=== PATIENT | male | born 1970 | race Caucasian/White ===

== ENCOUNTER 2019-08-11 11:28 | Outpatient (CLI) | payer MEDICARE, MEDICAID, SELFPAY | END 2019-08-11 11:29 | disposition home or self-care (01) | LOC: ANHAUDIO 11:31 | DX: H90.3 Sensorineural hearing loss, bilateral (principal) | CPT/HCPCS: 92557; 92567 ==

== ENCOUNTER 2020-07-25 10:12 | Outpatient (CLI) | payer MEDICARE, MEDICAID, SELFPAY | END 2020-07-25 10:13 | disposition home or self-care (01) | PROVIDERS: PCP Nurse Practitioner Family; Visit Provider Nurse Practitioner Family | DX: H91.93 Unspecified hearing loss, bilateral (principal) | CPT/HCPCS: 92557; 92567 ==

== ENCOUNTER 2024-03-22 18:17 | Emergency (ER) | payer MEDICARE, MEDICAID, SELFPAY ==
--- OUTSIDE RECORDS SUMMARY | 2024-03-22 18:20 | XMS_ITS | Encounter Summary ---
Author Organization [facility] Address [address] [place] [address] Phone Care Team Providers Care Information Strategist Name Role Phone Leigha Vega MD Primary Care Provider Robbie Cruz MD Unavailable [phone] Ángela Peraza APRN, TUB TENDER Unavailable Reason for Visit * Reason Comments Medication Refill Encounter Details Date Type Department Care Team (Late st Contact Info) Description 10/28/2022 Refill [facility] - Gastroenterology - [place] [address] [place] [phone] [address]va [address], [address] [place] [address] Medication Refill Social History Tobacco Use Types Packs/Day Years Used Date Smoking Tobacco: Never Smokeless Tobacco: Never Alcohol Use Standard Drinks/Week Comments No 0 (1 standard drink = 0.6 oz pur e alcohol) Sexually Active Control Partners Comments Not Currently Sex and Gender Information Value Date Recorded Sex Assigned at Not on file Legal Sex Male 8:02 PM CDT Gender Identity Not on file Sexual Orientation Not on file documented as of this encounter Miscellaneous Notes * Telephone Encounter - Yvonne Smallwood RN - 10/29/2022 11:35 AM CDT mirilax passed protocol. Please approve pended order due to previous provider is no longer with office. * Telephone Encounter - Yvonne Smallwood RN - 10/29/2022 11:28 AM CDT Pharmacy requesting refill of: Requested Prescriptions Pending Prescriptions Disp Refills ??? polyethylene glycol (GLYCOLAX) 17 GM/SCOOP Powder [Pharmacy Med Name: POLYETHYLENE GLYCOL 3350 POWD] 510 g 10 Sig: DISSOLVE 1 CAPFUL (17 GRAMS) IN 8 OUNCES OF LIQUID & TAKE BY MOUTH EVERY OTHER DAY. 8AM Last fill: 10/26/2021 Patients last OV with GI: 10/01/2021 Next Office Visit with GI: None scheduled. Called patient. Spoke with Sarah at [facility]. Patient scheduled an appt for 11/12/2022. documented in this encounter Plan of Treatment Upcoming Encounters Date Type Department Care Team (Late st Contact Info) Description 04/08/2024 10:30 AM BUSINESS ANALYST INTERN Office Visit [facility] - Primary Care - [place] [address] [place] [address] Aguila Graff PAC [address] [place] [address] 09/07/2024 10:00 AM CDT Office Visit [facility] - Neurology - [place] [address] [place] [phone] Robbie Cruz MD [address] [place] [phone] 11/10/2024 11:00 AM CDT Office Visit [facility] - Gastroenterology - [place] [address] [place] [phone] Ángela Peraza APRN, TUB TENDER [address] [place] [address] documented as of this encounter Visit Diagnoses Diagnosis Chronic constipation Unspecified constipation documented in this encounter Additional Health Concerns Infection Onset Date Last Indicated Resolved Time COVID - 19 01/24/2024 01/24/2024 01/24/2024 8:13 PM BUSINESS ANALYST INTERN documented as of this encounter Care Teams Information Strategist Relationship Specialty Start Date End Date Leigha Vega MD [address] [place] [address] [place] [address] PCP - General Family Medicine 11/09/20 Robbie Cruz MD [address] [place] [phone] Consulting Physician Neurology 09/05/22 Ángela Peraza APRN, TUB TENDER [address] [place] [address] Nurse Practitioner Advanced Practice Nurse 11/12/22 documented as of this encounter
--- OUTSIDE RECORDS SUMMARY | 2024-03-22 18:21 | XMS_ITS | Patient Health Summary ---
Author Organization [facility] Yashi Address [address] [place] [address] Care Team Providers Care Recordist Chief Name Role Phone Leigha Vega MD Primary Care Provider [phone] Note from [facility],non-owned Affiliates and Associated Physician Practices is amultiple site organization consisting of ambulatory clinics and hospital sitesin [place] and [place]. This disclosure is being madepursuant to the Care Everywhere program and may not contain all information available regarding this patient. Last updated 17.[facility] Allergies * Morphine(Anaphylaxis) -High Criticality Medications * Be aware that medications may not be up to date on this document. Alwaysverify current medications with the patient. * allopurinol (ZYLOPRIM) 300 MG tablet(Started 02/24/2017) Take 1 (one) tablet by mouth once daily * cetirizine (ZYRTEC) 10 MG tablet(Started 02/24/2017) Take 1 (one) tablet by mouth once daily * DiphenhydrAMINE HCl, Sleep, (ZZZQUIL) 25 MG(Started 03/10/2017) Take by mouth. * acetaminophen (TYLENOL) 325 MG tablet(Started 03/10/2017) Take 2 (two) tablets by mouth q4h PRN (Pain) * Aspirin (ASPIRIN ADULT LOW STRENGTH) 81 MG(Started 02/24/2017) Take 1 (one) tablet by mouth once daily * polyethylene glycol 3350 (MIRALAX) packet(Started 02/13/2017) Take 17 (seventeen) g by mouth once daily * levothyroxine (SYNTHROID) 137 MCG tablet(Started 02/01/2017) Take 1 (one) tablet by mouth once daily * simvastatin (ZOCOR) 40 MG tablet(Started 01/29/2017) Take 1 (one) tablet by mouth once daily * divalproex ER 24hr (DEPAKOTE ER) 500 MG tablet(Started 02/24/2017) Take 1 (one) tablet by mouth once daily * metoprolol tartrate (LOPRESSOR) 25 MG tablet(Started 02/24/2017) Take 1 (one) tablet by mouth once daily * folic acid (FOLVITE) 1 MG tablet(Started 02/24/2017) Take 1 (one) tablet by mouth once daily * alum & mag hydroxide-simeth (MAALOX ADVANCED) 200-200-20 MG/5ML suspension Take 30 mL by mouth as needed * Multiple Vitamins-Minerals (THEREMS-M) TABS(Started 08/10/2017) Take 1 (one) tablet by mouth once daily * omeprazole (PRILOSEC) 40 MG capsule(Started 09/29/2017) Take 20 capsules by mouth 2 times daily,before breakfast and supper * ARTIFICIAL TEARS 1.4 % ophthalmic solution(Started 07/28/2017) Instill 1 (one) drop into both eyes 3 times daily * terbinafine (LAMISIL) 1 % cream(Started 09/08/2017) Apply to affected area at bedtime * B Complex Vitamins (B COMPLEX PO) Take 1 capsule by mouth once daily * albuterol HFA (PROAIR HFA) 108 (90 BASE) MCG/ACT inhaler Inhale 2 puffs by mouth every 4 hours as needed * Uqalv-Iubvb-Nihianr-Pramoxine (TRIPLE ANTIBIOTIC PLUS) 1 % * montelukast (SINGULAIR) 10 MG tablet(Started 08/17/2019) Take 1 tablet by mouth at bedtime 11 refills by 08/16/2020 * terbinafine (LAMISIL) 250 MG tablet(Started 02/28/2020) * selenium sulfide (SELSUN) 2.5 % lotion(Started 12/18/2019) * fluticasone propionate (FLONASE) 50 MCG/ACT nasal spray(Started 09/13/2020) INSTILL 2 SPRAYS INTO EACH NOSTRIL ONCE DAILY. 8AM 5 refills by 09/13/2021 * Calcium Carb-Cholecalciferol (Oyster Shell Calcium w/D) 500-5 MG-MCG TABS (Started 10/28/2022) Take 1 tablet by mouth 3 times daily * gabapentin (Neurontin) 100 MG capsule(Started 10/28/2022) Take 1 (one) capsule by mouth 3 times daily * losartan (Cozaar) 25 MG tablet(Started 02/27/2022) Take 1 (one) tablet by mouth once daily * sucralfate (Carafate) 1 GM tablet(Started 10/28/2022) Take 1 (one) tablet by mouth 2 times daily * bisacodyl EC 5 MG tablet Take 1 (one) tablet by mouth as needed for Constipation * loperamide (Imodium) 2 MG capsule Take 1 (one) capsule by mouth 2 times daily as needed for Diarrhea * Dextromethorphan-guaiFENesin (Robafen DM) 20-200 MG/20ML LIQD Take 10 mL by mouth as needed * acetaminophen CR (Tylenol Arthritis Pain) 650 MG tablet(Started 09/26/2023) Take 1 (one) tablet by mouth every 6 hours as needed for Pain * carboxymethylcellulose sodium 0.5 % ophthalmic solution(Started 10/18/2023) Instill 1 (one) drop into both eyes 3 times daily * divalproex ER 24hr (Depakote ER) 250 MG tablet(Started 09/26/2023) Take 1 (one) tablet by mouth once daily * donepezil (Aricept) 10 MG tablet(Started 09/26/2023) Take 1 (one) tablet by mouth at bedtime * famotidine (Pepcid) 20 MG tablet(Started 09/26/2023) Take 1 (one) tablet by mouth once daily * OLANZapine (ZyPREXA) 7.5 MG tablet(Started 09/26/2023) Take 1 (one) tablet by mouth at bedtime * Emollient (CeraVe PM) LOTN 1 Dose by Apply externally route as needed * diphenhydrAMINE (Banophen) 25 MG capsule Take 1 (one) capsule by mouth every 4 hours as needed for Itching Active Problems Problem Noted Date Diagnosed Date Sensorineural hearing loss (SNHL) of both ears 0 05/05/2018 Dysfunction of right eustachian tube 12/16/2017 Bilateral hearing loss 12/16/2017 UARS (upper airway resistance syndrome) 11/19/19 18 Allergic rhinitis 11/18/2017 Sleep related leg cramps 10/06/2017 Sleep related gastroesophageal reflux disease Sleep choking syndrome 10/06/2017 Hypnagogic hallucinations 10/06/2017 Confusional arousals 10/06/2017 Conductive hearing loss 10/03/2017 Mixed hyperlipidemia 10/03/2017 Spondylosis of cervical [place] on without myelopathy or radiculopathy 10/03/2017 Severe intellectual disabilities 01/24/2017 CAP (community acquired pneumonia) 01/22/2017 Gout 01/22/2017 Schizophrenia 01/22/2017 Trisomy 21, Down syndrome 01/22/2017 Resolved Problems Problem Noted Date Diagnosed Date Resolved Date Cerumen impaction 10/03/2017 10/17/2017 Immunizations * INFLUENZA VACCINE, TRIV. (AFLURIA, FLUZONE TRIVALENT; 6MO+) (IIV3)(Given 11/24/2012) * BCG CORRECTION, HISTORIC VACCINE(Given 04/01/2022) * COVID PFIZER BIVALENT 12Y+ 30mcg/0.3ML(Given 12/06/2021) * Covid Pfizer primary monovalent 12+ yr 0.3mL Purple cap(Given 11/17/2020) * FLU VACCINE QUAD IIV4 SPLIT 0.25 ML IM(Given 11/23/2018, 10/21/2016, 12/14/2015, 11/11/2015) * FLU VACCINE TRI IIV3 SPLIT IM (FLUVIRIN)(Given 11/11/2014, 11/11/2013) * HEP B VACCINE(Given 12/06/1997, 11/07/1997) * HIB VACCINE(Given 11/07/1997) * Hep B, Adjuvanted(Given 04/17/1998) * INFLUENZA VACCINE(Given 10/11/2017) * INFLUENZA VACCINE, QUADR. (FLUZONE; FLULAVAL; FLUARIX; AFLURIA QUADRIVALENT; 6MO+), 0.5 ML (IIV4)(Given 11/06/2022, 12/06/2021, 11/17/2020, 11/25/2019, 11/07/2017) * MODERNA SARS-COV-2 COVID-19 VACCINE 0.25ML(Given 11/17/2020, 04/16/2020, 03/26/2020) * PNEUMOCOCCAL PCV VACCINE(Given 06/16/2008, 03/16/2003, 12/08/1997) * PNEUMOCOCCAL PPSV23(Given 06/09/2018, 02/11/2008) * TD (AGE 7-ADULT)(Given 03/13/2008) * TD, HISTORIC VACCINE(Given 11/07/1997) * TDAP (7yrs+)(Given 10/20/2019, 07/13/2007) Social History Tobacco Use Types Packs/Day Years Used Date Smoking Tobacco: Never Smokeless Tobacco: Never Tobacco Cessation:Counseling Given: Yes Alcohol Use Standard Drinks/Week Comments No 0 (1 standard drink = 0.6 oz pur e alcohol) Sex and Gender Information Value Date Recorded Sex Assigned at Not on file Gender Identity Not on file Sexual Orientation Not on file Last Filed Vital Signs Vital Sign Reading Time Taken Comments Blood Pressure 126/82 10/28/2023 10:46 AM CDT Pulse 90 10/28/2023 10:46 AM CDT Temperature - - Respiratory Rate 12 10/02/2021 3:39 PM CDT Oxygen Saturation - - Inhaled Oxygen Concentration - - Weight 84.2 kg (185 lb 9.6 oz) 10/28/2023 10:46 AM CDT Height 162.6 cm (5' 4 ) 10/02/2021 3:39 PM CDT Body Mass Index 31.86 10/02/2021 3:39 PM CDT Procedures * AUDIOLOGY/TYMPANOMETRY ORDER(Performed 10/28/2023) * PA REMOVE CERUMEN IMPACTED W INSTR SYDNEY(Performed 11/05/2022) Performed for Hearing difficulty of both ears, Sensorineural hearing loss (SNHL) of both ears, UARS(upper airway resistance syndrome), Dysfunction of right eustachian tube, Allergic rhinitis, unspecified seasonality, unspecified trigger * AUDIOLOGY/TYMPANOMETRY ORDER(Performed 11/05/2022) * AUDIOLOGY/TYMPANOMETRY ORDER(Performed 10/10/2021) * PA REMOVE CERUMEN IMPACTED W INSTR LEFT EAR(Performed 10/02/2021) Performed for UARS (upper airway resistance syndrome), Allergic rhinitis, unspecified seasonality, unspecified trigger, Dysfunction of right eustachian tube, Sensorineural hearing loss (SNHL) of bothears, Left ear impacted cerumen * PA LARYNGOSCOPY,FLEX FIBER,DIAGNOSTIC(Performed 11/18/2017) Performed for UARS (upper airway resistance syndrome), Allergic rhinitis, unspecified seasonality, unspecified trigger * PA POLYSOM 6/> YRS 4/> CHA(Performed 10/10/2017) Performed for CECILY (obstructive sleep apnea), Trisomy 21 (HCC) * XR LUMBAR SPINE 4VW OR MORE(Performed 03/10/2017) Results * AUDIOLOGY/TYMPANOMETRY ORDER (10/28/2023 10:12 AM CDT) Farida Barrett AuD - 10/28/2023 10:40 AM CDT History: Geo Grimaldo arrived for a hearing evaluation. Patient resides in a correction and is here for a hearing evaluation to determine the status of his hearing. The last time he was in for a hearing test he did not cooperate for testing. Results: Puretone air/bone conduction testing revealed a mild sloping to moderately severe SN hearing loss in the right ear and slight sloping to moderately severe SN hearing loss in the left ear. Speech understanding was good in the right ear and excellent in the left ear. Immittance measures revealed a Type C tympanogram in the right ear, indicating abnormal middle ear function. Results for the left ear revealed a Type As tympanogram, indicating shallow middle ear function in that ear. These results were discussed in detail with the patient and all pertinent questions were answered. Recommendations: 1) ENT consult. 2) Could consider amplification, however caregiver does not believe he would keep the hearing aids in his ears. Subha Medina. [facility] Clinical Pet Crematory Worker [facility]-Department of Otolaryngology/Audiology [facility] [address] [place] [address] ([facility]) [place] [address] Farida Mascorro AUDIOLOGY SERVICES O RDERABLES * PA REMOVE CERUMEN IMPACTED W INSTR SYDNEY (11/05/2022 10:53 AM CDT) John King MD - 11/05/2022 10:53 AM CDT John Berman MD 11/05/2022 12:34 PM Procedure Note: Cerumen Removal, Bilateral Procedure Details: Informed consent was obtained. The patient was placed in the supine position. The operative microscope used to visualize both ear canals. Large amounts of moderate-severely impacted cerumen were removed with currette and suction. A normal tympanicmembrane was then appreciated. The patient tolerated the procedure without complication. The following findings were noted: B moderate cerumen. R ear retracted without obvious effusion or cholesteatoma. Well tolerated exam. The patient tolerated procedure well. Complications: None John Berman MD PROCEDURE/MINOR S URGICAL ORDERABLES * AUDIOLOGY/TYMPANOMETRY ORDER (11/05/2022 9:53 AM CDT) Michele RodgersFarida riveroSubha - 11/05/2022 9:56 AM CDT History: Geo Rivero Dillan arrived for a hearing evaluation. Patient resides in a correction and is here for a hearing evaluation to determine the status of his hearing. Results: Patient would not cooperate for testing today. Immittance measures revealed a Type C tympanogram in the right ear, indicating abnormal middle ear function. Results for the left ear revealed a Type A tympanogram, indicating normal middle ear function in that ear. These results were discussed in detail with the patient and all pertinent questions were answered. Recommendations: 1) ENT consult. 2) Hearing evaluation per medical recommendation or if a change in hearing is suspected. Subha Medina. [facility] Clinical Pet Crematory Worker [facility]-Department of Otolaryngology/Audiology [facility] [address] [place] [address] ([facility]) [place] [address] Farida Mascorro AUDIOLOGY SERVICES O RDERABLES * AUDIOLOGY/TYMPANOMETRY ORDER (10/10/2021 12:38 PM CDT) Farida Barrett AuD - 10/10/2021 1:13 PM CDT History: Geo Rivero Dillan arrived for a hearing evaluation. Patient resides in a correction and is here for a hearing evaluation to determine the status of his hearing. Results: Puretone air/bone conduction testing revealed a mild sloping to moderately severe SN hearing loss in the right ear and a normal sloping to severe SN hearing loss in the left ear. Speech understanding was good in the right ear and excellent in the left ear. Immittance measures revealed a Type C tympanogram in the right ear, indicating abnormal middle ear function. Results for the left ear revealed a Type A tympanogram, indicating normal middle ear function in that ear. These results were discussed in detail with the patient and all pertinent questions were answered. Recommendations: 1) ENT consult. 2) Hearing evaluation annually or if a change in hearing is suspected. 3) Consider trial with amplification pending medical clearance/interest. I was told patient would likely not wear hearing aids if provided. Subha Medina. [facility] Clinical Pet Crematory Worker [facility]-Department of Otolaryngology/Audiology [facility] [address] [place] [address]. ([facility]) [place] [address] Farida Mascorro AUDIOLOGY SERVICES O RDERABLES * PA REMOVE CERUMEN IMPACTED W INSTR LEFT EAR (10/02/2021 4:29 PM CDT) John King MD - 10/02/2021 4:29 PM CDT John Berman MD 10/02/2021 4:33 PM Procedure Note: Cerumen Removal, Left Procedure Details: Informed consent was obtained. The patient was placed in the supine position. The operative microscope used to visualize the L ear canal. Large amounts of moderate-severely impacted cerumen were removed with currette and suction. A normal tympanic membrane was then appreciated. The patient tolerated the procedure without complication. The following findings were noted: Moderate-severe L cerumen impaction. Normal after removal. The patient tolerated procedure well. Complications: None John Berman MD PROCEDURE/MINOR S URGICAL ORDERABLES * PA LARYNGOSCOPY,FLEX FIBER,DIAGNOSTIC (11/18/2017 2:21 PM CDT) John King MD - 11/18/2017 2:21 PM CDT John Berman MD 11/18/2017 2:21 PM Procedure Note Anesthesia: Lidocaine 2% and Preet-Synephrine 1/2% Endoscopy Type: Flexible Oyglt-Uqpjxaqaouyife-Ftaszjyanqfn Procedure Details: Informed consent was obtained. The patient was placed in the sitting position. After topical anesthesia and decongestion, the 4 mm laryngoscope was passed. The nasal cavities, nasopharynx, oropharynx, hypopharynx, and larynx were all examined. Vocal cords were examined during respiration and phonation. This was repeated with the patient supine. The following findings were noted: Normal nasal cavity bilaterally. No polyps, masses, or drainage. Normal nasopharynx, oropharynx, hypopharynx, and larynx. Good TVC mobility bilaterally. On upright exam, it initially appeared that L cord was less mobile, but this appears normal on upright exam. The patient tolerated procedure well. Complications: None John Berman MD PROCEDURE/MINOR S URGICAL ORDERABLES * PA POLYSOM 6/> YRS 4/> CHA (10/10/2017 2:58 PM CDT) Narrative Ortiz Collado MD - 10/10/2017 2:58 PM CDT Ortiz Collado MD 10/10/2017 2:58 PM Accredited by the [employer] [facility], [address] [place] [address] Telephone : [phone] Medical Records Patient Name: Geo Grimaldo : 1970 Date of Study: 10/03/2017 Referring Physician: No referring provider defined for this encounter. Type of Montage: FULL NIGHT DIAGNOSTIC POLYSOMNOGRAM IMPRESSION: Upper Airway Resistance Syndrome (UARS, with loud snoring and 129 arousals, G47.8) (AHI=4.1 respiratory events/h; RERA est. 12.4/h; Swapnil SaO2=87%; SaO2 below 88%=0.1% of night; Efficiency=96/97%; Stage R=22%; mass=82 kg; [facility]) Patient Active Problem List Diagnosis CAP (community acquired pneumonia) Cerumen impaction Conductive hearing loss Gout Schizophrenia Severe intellectual disabilities Trisomy 21, Down syndrome Mixed hyperlipidemia Spondylosis of cervical region without myelopathy or radiculopathy Sleep related leg cramps Sleep related gastroesophageal reflux disease Sleep choking syndrome Hypnagogic hallucinations Confusional arousals COMMENTS: On the diagnostic night, the degree of sleep fragmentation placed the patient at risk for metabolic sequelae that include hypertension, cardiac events, thrombosis, insulin resistance, and weight gain. In addition, fragmentation of sleep and the consequent daytime effects on cognition and function might place the patient at risk for accidents. RECOMMENDATIONS: 1. ENT evaluation of UARS. 2. The patient should be counseled and cautioned regarding safe driving. 3. The patient should be counseled to avoid sleep deprivation, alcohol, and all sedative medications as these can exacerbate upper airway resistance. 4. The patient should continue a weight reduction program. Even a mild to moderate weight loss should result in significant improvement in the patient s upper airway resistance. 5. Exercise should be undertaken daily, with respect given to any orthopedic limitations. Physical therapy or physical medicine consultation may be warranted. Strenuous exercise, which activates the sympathetic nervous system (adrenaline system) not only helps with weight loss and mood, but also improves sleep quality, and upper respiratory muscle tone during sleep. 6. The patient should be counseled on principles of good sleep hygiene with particular emphasis on maintaining a regular sleep/wake schedule, maintaining a good environment for sleep (dark, cool, quiet), and ensuring sufficient total sleep time. DIAGNOSTIC POLYSOMNOGRAM During this diagnostic study, the patient slept for 471 minutes and had sleep efficiency of 96/97%. The patient's initial sleep latency was 5 minutes. The initial REM latency was 206.5 minutes. The wake after sleep onset (WASO) was 15 minutes. The sleep stages expressed as a percentage of total sleep time: stage N1: 6% stage N2: 50% stage N3: 20% stage REM: 22% The patient's overall hypopnea-apnea index was 4.1 per hour while the respiratory effort-related arousal index was 12.4 per hour. The minimum in oxyhemoglobin saturation was 87% during REM sleep and 90% during non-REM sleep. The patient spent 0.1% of recording time with oxyhemoglobin saturation below 88%. The patient's periodic limb movement index was 2.5 per hour. There were 25 awakenings and 29 spontaneous arousals. EKG showed NSR Parasomniae were not noted during this diagnostic study. Technicians noted snoring and respiratory events. Post-arousal central events Ortiz Collado MD, FACP, FACE, [facility] Sleep Medicine and Metabolism grill attendant [facility] [employer] CC: No referring provider defined for this encounter. Jasper Bryant, MARINE PAINTER-SECRETARIAL STENOGRAPHER Ortiz Collado MD PROCEDURE/MINOR SURG ICAL ORDERABLES * XR LUMBAR SPINE 4VW OR MORE (03/10/2017 8:58 AM EDGER LINER) Anatomical Region Laterality Modality Spine Other Impressions 03/11/2017 4:13 PM EDGER LINER Impression: Mild retrolisthesis of L3 on L4. Multilevel degenerative disc and joint disease. Report dictated by Dayday Smart M.D. (residential sales rep). Dr. EZIO Esquivel MD have personally reviewed and interpreted this examination/study. This report was electronically signed by EZIO COPE MD on 03/11/2017 4:13 PM . Narrative 03/11/2017 4:13 PM EDGER LINER Exam: XR SPINE LUMBAR 4 VW MIN Date: 03/10/2017 8:58 AM Comparison: No prior study is available for comparison. History: back pain Findings: Mild retrolisthesis of L3 on L4 persists with flexion and extension views. There is multilevel degenerative disc disease characterized by mild disc space narrowing, endplate sclerosis, and large anterior and lateral bridging and near bridging osteophytes at multiple levels lower lumbar facet degeneration is seen. No fracture is identified. Procedure Note Ezio Cope MD - 05/14/2017 Exam: XR SPINE LUMBAR 4 VW MIN Date: 03/10/2017 8:58 AM Comparison: No prior study is available for comparison. History: back pain Findings: Mild retrolisthesis of L3 on L4 persists with flexion and extension views.There is multilevel degenerative disc disease characterized by mild discspace narrowing, endplate sclerosis, and large anterior and lateralbridging and near bridging osteophytes at multiple levels lower lumbar facet degeneration is seen. No fractureis identified. IMPRESSION Impression: Mild retrolisthesis of L3 on L4. Multilevel degenerative disc and joint disease. Report dictated by Dayday Smart M.D. (residential sales rep). Dr. EZIO Esquivel MD have personally reviewed and interpreted thisexamination/study. This report was electronically signed by EZIO CPOE MD on 03/11/20174:13 PM . Jasmin Esteban PA-C DIAGNOSTIC TRINO GING ORDERABLES Care Teams Recordist Chief Relationship Specialty Start Date End Date Leigha Vega MD [address] [place] [id number] PCP - General Family Medicine 11/05/22
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
--- OUTSIDE RECORDS SUMMARY | 2024-03-22 18:21 | XMS_ITS | Encounter Summary ---
Author Organization [facility] Address [address] [place] [address] Phone Care Team Providers Care Closing Agent Name Role Phone Leigha Vega MD Primary Care Provider [phone] Robbie Cruz MD Unavailable [phone] Ángela Peraza APRN, FEED GRINDER Unavailable Encounter Details Date Type Department Care Team (Late st Contact Info) Description 04/15/2022 Nursing Facility [facility] [address] [place] [address] Ezio Dillon, PAC [address] [place] [address] Social History Tobacco Use Types Packs/Day [...] Progress Notes * Ezio Dillon, RED - 04/15/2022 4:14 PM CST [facility] PROGRESS NOTE Geo Grimaldo is a 52 y.o. male at [facility] for rehabilitation. Geo Grimaldo is a 52 y.o. male who has transferred to [facility] from [facility] for post-acute care and rehabilitation before [facility]. The patient has intellectual disability due to [...] History: Patient is lying comfortably in bed. Just finished therapy. Says he feels ???fine ???. Denies any shortness of breath. Denies any more of his vomiting. No abdominal pain. Denies any acute symptoms or concerns at this time. Past Medical History Positives Diagnosis Date ??? [...] COLON, HEMORRHOIDS; Surgeon: Audi Almaguer MD; Location: [facility] GI LAB; Service: Gastroenterology ??? FOOT SURGERY X2, MOM STATES PT WAS IN 20'S ??? TYMPANOSTOMY TUBE PLACEMENT PT MOTHER STATES WHEN PT WAS A BABY ??? UPPER GASTROINTESTINAL ENDOSCOPY [id number] ??? UPPER GASTROINTESTINAL ENDOSCOPY Left 09/03/2016 Procedure: EGD ERIC TEST, SMALL BOWEL BIOPSY, DUODENAL BULB LESION BIOPSY, DISTAL, MID, AND PROXIMALESOPHAGEAL BIOPSIES; Surgeon: Audi Almaguer MD; Location: [facility] GI LAB; Service: Gastroenterology Review of Systems: A 14 point comprehensive review of systems was negative except what is documented in interval history above. Objective: Exam: Vital Signs: B/P: 126/72 Pulse: 70 Respirations: 16 Temperature: 97.7 General: Well developed, well nourished, in no [...] this appears to have resolved. Apparently still requiring oxygen at exertion occasionally. Will do a continue to wean as tolerated. 04/11: Has been successfullyweaned off of oxygen. Lung sounds are clear 2. MAGED. Resolved. Kidney functioning returned to baseline after receiving IV fluids. 3. Hypertension. BP stable. Continue management with losartan and lopressor. Monitor vital signs while at the SNF. 04/15: Well controlled 4. Generalized weakness and decreased mobilization. The patient is to receive PT and OT at the SNF to improve strength, balance, and mobility back to baseline. 04/15: Improving 5. Intellectual disability/Down syndrome/Trisomy 21 and underlying dementia without apparent behavioral disturbances. Continue supportive care at the SNF. Continue dementia treatment with Aricept. [facility] 6. Depression and Schizophrenia. The patient's mood [...] advanced care planning with this patient. Disposition: He will be going back to his penitentiary. Apparently penitentiary is not very comfortablewith the supplemental oxygen so he either needs to be weaned off of it completely or needs to be very clear guidelines on it. This note was dictated using Attendify fluency dictation system and there may be errors in rn patient care. Despite proof reading the note, there may be mistakes and I apologize for those. By: RED Menjivar, 04/15/2022 4:14 PM SELF PAY COLLECTOR PAY COLLECTOR documented in this encounter Plan of Treatment Upcoming Encounters Date Type Department Care Team (Late st Contact Info) Description 04/08/2024 10:30 AM SELF PAY COLLECTOR Office Visit [facility] - Primary Care - [place] [address] [place] [address] Aguila Graff, PAC [address] [place] [address] 09/07/2024 10:00 AM CDT Office Visit [facility] - Neurology - [place] [address] [place] [address] Robbie Cruz MD [address] [place] [address] 11/10/2024 11:00 AM CDT Office Visit [facility] - Gastroenterology [facility] [address] [facility] [place] [address] Ángela Peraza APRN, FEED GRINDER [address] [place] [address] documented as of this encounter Visit Diagnoses Not on filedocumented in this encounter Additional Health Concerns Infection Onset Date Last Indicated Resolved Time COVID - 19 01/24/2024 01/24/2024 01/24/2024 8:13 PM SELF PAY COLLECTOR documented as of this encounter Care Teams Closing Agent Relationship Specialty Start Date End Date Leigha Vega MD [address] [place] [address] [address] PCP - General Family Medicine 11/09/20 Robbie Cruz MD [address] [place] [phone] Consulting Physician Neurology 09/05/22 Ángela Peraza APRN, FEED GRINDER [address] [place] [address] Nurse Practitioner Advanced Practice Nurse 11/12/22 documented as of this encounter
--- OUTSIDE RECORDS SUMMARY | 2024-03-22 18:21 | XMS_ITS | Referral Summary ---
Author Organization [facility] Address [address] [place] [address] Care Team Providers Care Steel Inspector Name Role Phone Michaela Sweet MD Primary Care Provider Allergies Active Allergy Reactions Criticality Noted Date Comments Morphine Morphine Sulfate Unknown 03/20/2022 Medications allopurinoL (ZYLOPRIM) 300 mg tablet Take 300 mg by mouth daily 8 Active aspirin 81 mg enteric coated tablet Take 81 mg by mouth daily 8 Active cetirizine (ZyrTEC) 10 mg tablet 10 mg [address] (DEPAKOTE) 500 mg EC tablet Take 500 mg by mouth 2 (two) times a day Active donepeziL (ARICEPT) 10 mg tablet Take 10 mg by mouth daily 0 Active famotidine (PEPCID) 20 mg tablet Take 20 mg by mouth 2 (two) times a day 1 Active folic acid (FOLVITE) 1 mg tablet Take 1 mg by mouth daily 8 Active gabapentin (NEURONTIN) 100 mg capsule Take 100 mg by mouth 3 (three) times a day 1 Active levothyroxine (SYNTHROID) 137 mcg tablet Take 137 mcg by mouth daily 7 Active metoprolol tartrate (LOPRESSOR) 25 mg immediate release tablet Take 12.5 mg by mouth 2 (two) times a day 8 Active montelukast (SINGULAIR) 10 mg tablet Take by mouth 8 Active OLANZapine (ZyPREXA) 7.5 mg tablet Take 5 mg by mouth nightly Active simvastatin (ZOCOR) 40 mg tablet Take 40 mg by mouth nightly 7 Active polyvinyl alcohol (LIQUIFILM TEARS) 1.4 % ophthalmic solution Administer 1 drop into affected eye(s) 3 (three) times a day 8 Active polyethylene glycol (MIRALAX) 17 gram/dose powder Take 17 g by mouth daily 8 Active terbinafine (LamISIL) 1 % cream Apply topically nightly 8 Active calcium carbonate-vitam in D3 1,250mg (500mg elemental) - 5 mcg (200 units) per tablet Take 1 tablet by mouth 3 (three) times a day Active losartan (COZAAR) 25 mg tablet 3 Active Therems-M 9 mg iron-400 mcg tablet 3 Active Artificial Tears,pvalch-po vid, 0.5-0.6 % Administer 1.4 drops into both eyes 3 (three) times a day 3 Active Vitamins B Complex capsule Take 1 capsule by mouth daily 3 Active Active Problems Problem Noted Date Diagnosed Date Pneumonia of right lower lobe due to infectious organism 03/20/2022 MAGED (acute kidney injury) 03/20/2022 HTN (hypertension) 03/20/2022 Cyclical vomiting 09/17/2019 Sensorineural hearing loss (SNHL) of both ears 0 05/05/2018 Bilateral hearing loss 12/16/2017 Allergic rhinitis 11/18/2017 UARS (upper airway resistance syndrome) 11/19/19 18 Gastroesophageal reflux disease without esophagi tis 10/06/2017 Hypnagogic hallucinations 10/06/2017 Sleep choking syndrome 10/06/2017 Sleep related leg cramps 10/06/2017 Conductive hearing loss 10/03/2017 Overview (03/20/2022): External ear Overview: External ear Mixed hyperlipidemia 10/03/2017 Spondylosis of cervical [place] on without myelopathy or radiculopathy 10/03/2017 Severe intellectual disabilities 01/24/2017 CAP (community acquired pneumonia) 01/22/2017 Gout 01/22/2017 Schizophrenia 01/22/2017 Trisomy 21, Down syndrome 01/22/2017 Social History Tobacco Use Types Packs/Day Years Used Date Smoking Tobacco: Never Alcohol Use Standard Drinks/Week Comments Not Currently 0 (1 standard drink = 0.6 oz pur e alcohol) Personal Safety Answer Date Recorded Getting School Help Needed Not on file 10/22 Sex and Gender Information Value Date Recorded Sex Assigned at Not on file Legal Sex Male 2:32 AM ECG TECHNICIAN Gender Identity Not on file Sexual Orientation Not on file Last Filed Vital Signs Vital Sign Reading Time Taken Comments Blood Pressure 126/75 10/05/2022 1:56 AM CDT Pulse 95 10/05/2022 1:56 AM CDT Temperature 36.9 C (98.5 F) 10/04/2022 10:03 PM CDT Respiratory Rate 18 10/05/2022 1:56 AM CDT Oxygen Saturation 95% 10/05/2022 1:56 AM CDT Inhaled Oxygen Concentration - - Weight 88.9 kg (196 lb) 04/06/2022 6:12 PM ECG TECHNICIAN Height 167.6 cm (5' 6 ) 03/20/2022 9:17 PM ECG TECHNICIAN Body Mass Index 31.64 03/20/2022 9:17 PM ECG TECHNICIAN Plan of Treatment Not on file [place] [address] [facility] [employer]DC MEDICARE [facility] MEDICARE IDPA Advance Directives For more information, please contact: [phone] * Full Code (Latest Code Status on File) Date Activated Date Inactivated Comments 03/20/2022 8:23 PM 03/28/2022 5:42 PM Healthcare Agents on File Name Relationship Healthcare Agent [facility] Communication Nisha Lightson Mother Health Care Agent Care Teams Steel Inspector Relationship Specialty Start Date End Date Michaela Sweet MD PCP - General 07/10/16
--- OUTSIDE RECORDS SUMMARY | 2024-03-22 18:21 | XMS_ITS | Encounter Summary ---
Author Organization [facility] Address [address] [place] [address] Phone Care Team Providers Care Internal Controls Analyst Name Role Phone Leigha Vega MD Primary Care Provider [phone] Robbie Cruz MD Unavailable [phone] Ángela Peraza APRN, OTR TRUCK DRIVER Unavailable Encounter Details Date Type Department Care Team (Late st Contact Info) Description 04/11/2022 Nursing Facility [facility] [address] [place] [address] Ezio Dillon, PAC [address] [place] [address] Social History Tobacco Use Types Packs/Day [...] Progress Notes * Ezio Dillon, RED - 04/11/2022 3:29 PM CST [facility] PROGRESS NOTE Geo Grimaldo is a 52 y.o. male at [facility] for rehabilitation. Geo Grimaldo is a 52 y.o. male who has transferred to [facility] from [facility] for post-acute care and rehabilitation before returning to his [facility]. The patient has intellectual disability due to [...] in bed. Says he feels ???good ???. Denies any acute symptoms or concerns. He has been successfully weaned off his oxygen. He denies any shortness of breath. Lung sounds are clear. O2 satting monitor closely still and continues to be very reassuring. Nursing staff has no concerns about the patient. Past Medical History Positives Diagnosis Date ??? [...] COLON, HEMORRHOIDS; Surgeon: Audi Almaguer MD; Location: [facility] GI LAB; Service: Gastroenterology ??? FOOT SURGERY X2, MOM STATES PT WAS IN 20'S ??? TYMPANOSTOMY TUBE PLACEMENT PT MOTHER STATES WHEN PT WAS A BABY ??? UPPER GASTROINTESTINAL ENDOSCOPY [id number] ??? UPPER GASTROINTESTINAL ENDOSCOPY Left 09/03/2016 Procedure: EGD ERIC TEST, SMALL BOWEL BIOPSY, DUODENAL BULB LESION BIOPSY, DISTAL, MID, AND PROXIMALESOPHAGEAL BIOPSIES; Surgeon: Audi Almaguer MD; Location: [facility] GI [facility]; Service: Gastroenterology Review of Systems: A 14 point comprehensive review of systems was negative except what is documented in interval history above. Objective: Exam: Vital Signs: B/P: 126/72 Pulse: 72 Respirations: 18 Temperature: 97.8 General: Well developed, well nourished, [...] Monitor vital signs while at the SNF. 3/2: Well controlled 4. Generalized weakness and decreased mobilization. The patient is to receive PT and OT at the SNF to improve strength, balance, and mobility back to baseline. 5. Intellectual disability/Down syndrome/Trisomy 21 and underlying dementia without apparent behavioral disturbances. Continue supportive care at the SNF. Continue dementia treatment with Aricept. resides at [facility] 6. Depression and Schizophrenia. The patient's mood [...] He will be going back to his ch[facility]. Apparently chcf is not very comfortablewith the supplemental oxygen so he either needs to be weaned off of it completely or needs to be very clear guidelines on it. This note was dictated using [employer] fluency dictation system and there may be errors in sandblaster paint sprayer. Despite proof reading the note, there may be mistakes and I apologize for those. By: RED Menjivar, 04/11/2022 3:29 PM COLOR WORKER R WORKER documented in this encounter Plan of Treatment Upcoming Encounters Date Type Department Care Team (Late st Contact Info) Description 04/08/2024 10:30 AM COLOR WORKER Office Visit [facility] - Primary Care - [place] [address] [place] [address] Aguila Graff, PAC [address] [place] [address] 09/07/2024 10:00 AM CDT Office Visit [facility] - Neurology - [place] [address] [place] [address] Robbie Cruz MD [address] [place] [address] 11/10/2024 11:00 AM CDT Office [facility] Medical [facility] - Gastroenterology - [place] [address] [place] [address] Ángela Peraza APRN, OTR TRUCK DRIVER [address] [place] [address] documented as of this encounter Visit Diagnoses Not on filedocumented in this encounter Additional Health Concerns Infection Onset Date Last Indicated Resolved Time COVID - 19 01/24/2024 01/24/2024 01/24/2024 8:13 PM COLOR WORKER documented as of this encounter Care Teams Internal Controls Analyst Relationship Specialty Start Date End Date Leigha Vega MD [address] [place] [address] [address] PCP - General Family Medicine 11/09/20 Robbie Cruz MD [address] [place] [address] Consulting Physician Neurology 09/05/22 Ángela Peraza APRN, OTR TRUCK DRIVER [address] [place] [address] Nurse Practitioner Advanced Practice Nurse 11/12/22 documented as of this encounter
--- OUTSIDE RECORDS SUMMARY | 2024-03-22 18:21 | XMS_ITS | Encounter Summary ---
Author Organization [facility] Address [address] [place] [address] Phone Care Team Providers Care Yard Hostler Name Role Phone Leigha Vega MD Primary Care Provider [phone] Robbie Cruz MD Unavailable [phone] Ángela Peraza APRN, OFFICE SUPPORT ASSOCIATE Unavailable Encounter Details Date Type Department Care Team (Late st Contact Info) Description 04/04/2022 Nursing Facility [facility] [address] [place] [address] Ezio Dillon, PAC [address] [place] [id number] Social History Tobacco Use Types Packs/Day [...] Progress Notes * Ezio Dillon, RED - 04/04/2022 5:30 PM CST [facility] PROGRESS NOTE Geo Grimaldo is a 52 y.o. male at [facility] for rehabilitation. Geo Grimaldo is a 52 y.o. male who has transferred to [facility] from [facility] for post-acute care and rehabilitation before returning to his prison. The patient has intellectual disability due to [...] room air. Subjective: Interval History: Patient is sitting comfortably in his chair. He is a poor historian but clinically he looks very well. He says he is feeling ???fine?? . He does not have his oxygen on currently. Is lungs are clear and respiratory status looks well. He is currently in his room and is pleasant. Occasionally gets agitated in situations with lots of stimulation. Therapy says he is doing well.t Nursing staff has no concerns about the [...] COLON, HEMORRHOIDS; Surgeon: Audi Almaguer MD; Location: [facility]; Service: Gastroenterology ??? FOOT SURGERY X2, MOM STATES PT WAS IN 20'S ??? TYMPANOSTOMY TUBE PLACEMENT PT MOTHER STATES WHEN PT WAS A BABY ??? UPPER GASTROINTESTINAL ENDOSCOPY [id number] ??? UPPER GASTROINTESTINAL ENDOSCOPY Left 09/03/2016 Procedure: EGD ERIC TEST, SMALL BOWEL BIOPSY, DUODENAL BULB LESION BIOPSY, DISTAL, MID, AND PROXIMALESOPHAGEAL BIOPSIES; Surgeon: Audi Almaguer MD; Location: [facility]; Service: Gastroenterology Review of Systems: A 14 point comprehensive review of systems was negative except what is documented in interval history above. Objective: Exam: Vital Signs: B/P: 128/68 Pulse: 74 Respirations: 18 Temperature: 97.6 General: Well developed, well nourished, in no [...] memory Lab Results: None Imaging: None Assessment/Plan: 1. Pneumonia. The patient The patient required [...] do a continue to wean as tolerated. 2. MAGED. Resolved. Kidney functioning returned to baseline after receiving IV fluids. 3. Hypertension. BP stable. Continue management with losartan and lopressor. Monitor vital signs while at the SNF. 4. Generalized weakness and decreased mobilization. The patient is to receive PT and OT at the SNF to improve strength, balance, and mobility back to baseline. 5. Intellectual disability/Down syndrome/Trisomy 21 and underlying dementia without apparent behavioral disturbances. Continue supportive care at the SNF. Continue dementia treatment with Aricept. 6. Depression and Schizophrenia. The patient's mood [...] He will be going back to his prison. Apparently prison is not very comfortablewith the supplemental oxygen so he either needs to be weaned off of it completely or needs to be very clear guidelines on it. This note was dictated using Sossee fluency dictation system and there may be errors in pharmacy operations manager. Despite proof reading the note, there may be mistakes and I apologize for those. By: RED Menjivar, 04/04/2022 5:30 PM INDUSTRIAL CONTROLS TECHNICIAN STRIAL CONTROLS TECHNICIAN documented in this encounter Plan of Treatment Upcoming Encounters Date Type Department Care Team (Late st Contact Info) Description 04/08/2024 10:30 AM INDUSTRIAL CONTROLS TECHNICIAN Office Visit [facility] - Primary Care - [address] [place] [phone] Aguila Graff, PAC [address] [place] [address] 09/07/2024 10:00 AM CDT Office Visit [facility] - Neurology - [place] [address] [place] [address] Robbie Cruz MD [address] [place] [address] 11/10/2024 11:00 AM CDT Office Visit [facility] - Gastroenterology - [place] [address] [place] [address] Ángela Peraza APRN, OFFICE SUPPORT ASSOCIATE [address] [place] [address] documented as of this encounter Visit Diagnoses Not on filedocumented in this encounter Additional Health Concerns Infection Onset Date Last Indicated Resolved Time COVID - 19 01/24/2024 01/24/2024 01/24/2024 8:13 PM INDUSTRIAL CONTROLS TECHNICIAN documented as of this encounter Care Teams Yard Hostler Relationship Specialty Start Date End Date Leigha Vega MD [address] [place] [address] [place] [address] PCP - General Family Medicine 11/09/20 Robbie Cruz MD [address] [place] [phone] Consulting Physician Neurology 09/05/22 Ángela Peraza APRN, OFFICE SUPPORT ASSOCIATE [address] [place] [address] Nurse Practitioner Advanced Practice Nurse 11/12/22 documented as of this encounter
--- OUTSIDE RECORDS SUMMARY | 2024-03-22 18:21 | XMS_ITS | Encounter Summary ---
Author Organization [facility] Address [address] [place] [address] Phone Care Team Providers Care Lead Inspector Name Role Phone Leigha Vega MD Primary Care Provider [phone] Robbie Cruz MD Unavailable [phone] Ángela Peraza APRN, WATER SAFETY TEACHER Unavailable Encounter Details Date Type Department Care Team (Late st Contact Info) Description 04/22/2022 Nursing Facility [facility] [address] [place] [address] Ezio Dillon, PAC [address] [place] [address] Social History Tobacco Use Types Packs/Day [...] Progress Notes * Ezio Dillon, RED - 04/22/2022 12:27 PM CDT [facility] PROGRESS NOTE Geo Grimaldo is a 52 y.o. male at [facility] for rehabilitation. Geo Grimaldo is a 52 y.o. male who has transferred to [facility] from [facility] for post-acute care and rehabilitation before returning to his halfway. The patient has intellectual disability due to [...] lying comfortably in bed. Says he feels ???pretty good ???. Denies any pain. Denies any GI symptoms. Clinically he looks well. Nursing staff has no concerns. Therapy says he continues to improve. Past Medical History Positives Diagnosis Date ??? [...] COLON, HEMORRHOIDS; Surgeon: Audi Almaguer MD; Location: [facility]; Service: Gastroenterology ??? FOOT SURGERY X2, MOM STATES PT WAS IN 20'S ??? TYMPANOSTOMY TUBE PLACEMENT PT MOTHER STATES WHEN PT WAS A BABY ??? UPPER GASTROINTESTINAL ENDOSCOPY [id number] ??? UPPER GASTROINTESTINAL ENDOSCOPY Left 09/03/2016 Procedure: EGD ERIC TEST, SMALL BOWEL BIOPSY, DUODENAL BULB LESION BIOPSY, DISTAL, MID, AND PROXIMALESOPHAGEAL BIOPSIES; Surgeon: Audi Almaguer MD; Location: [facility]; Service: Gastroenterology Review of Systems: A 14 point comprehensive review of systems was negative except what is documented in interval history above. Objective: Exam: Vital Signs: B/P: 126/72 Pulse: 72 Respirations: 18 Temperature: 98.4 General: Well developed, well nourished, in no [...] Speech therapy following. Downgraded to pureed diet. 04/22: None since. 1. Pneumonia. 04/22: Resolved 2. MAGED. Resolved. Kidney functioning returned to baseline after receiving IV fluids. 3. Hypertension. BP stable. Continue management with losartan and lopressor. Monitor vital signs while at the SNF. 04/22: Well controlled 4. Generalized weakness and decreased [...] Continue dementia treatment with Aricept. resides at halfway 6. Depression and Schizophrenia. The patient's mood [...] Disposition: 04/19: Planning for discharge back to halfway on 04/25. Has been successfully weanedoff the supplemental oxygen for some time now so does not need that. Speech therapy has recommendedpureed diet which she has done well with this and will need to continue after discharge. This note was dictated using Paw[employer] Software fluency dictation system and there may be errors in contract graphic designer. Despite proof reading the note, there may be mistakes and I apologize for those. By: RED Menjivar, 04/22/2022 12:27 PM CDT documented in this encounter Plan of Treatment Upcoming Encounters Date Type Department Care Team (Late st Contact Info) Description 04/08/2024 10:30 AM GLOBAL ACCOUNT MANAGER Office Visit [facility] - Primary Care - [address] [place] [phone] Aguila Graff, RED [address] [place] [address] 09/07/2024 10:00 AM CDT Office Visit [facility] - Neurology - [place] [address] [place] [phone] Robbie Cruz MD [address] [place] [address] 11/10/2024 11:00 AM CDT Office Visit [facility] - Gastroenterology - [place] [address] [place] [phone] Ángela Peraza APRN, WATER SAFETY TEACHER [address] [place] [address] documented as of this encounter Visit Diagnoses Not on filedocumented in this encounter Additional Health Concerns Infection Onset Date Last Indicated Resolved Time COVID - 19 01/24/2024 01/24/2024 01/24/2024 8:13 PM GLOBAL ACCOUNT MANAGER documented as of this encounter Care Teams Lead Inspector Relationship Specialty Start Date End Date Leigha Vega MD [address] [place] [address] [address] PCP - General Family Medicine 11/09/20 Robbie Cruz MD [address] [place] [phone] Consulting Physician Neurology 09/05/22 Ángela Peraza APRN, WATER SAFETY TEACHER [address] [place] [address] Nurse Practitioner Advanced Practice Nurse 11/12/22 documented as of this encounter
--- OUTSIDE RECORDS SUMMARY | 2024-03-22 18:21 | XMS_ITS | Clinical Summary ---
Author Organization [facility] Address [address] [place] [address] Care Team Providers Care Sand Cleaning Machine Operator Name Role Phone Michaela Sweet MD Primary [...] Schizophrenia 01/22/2017 Trisomy 21, Down syndrome 01/22/2017 Medical History Medical History Date Comments Hypertension Arthritis Social History Tobacco Use Types Packs/Day Years Used Date Smoking Tobacco: Never Alcohol Use Standard Drinks/Week Comments Not Currently 0 (1 standard drink = 0.6 oz pur e alcohol) Personal Safety Answer Date Recorded Getting School Help Needed Not on file 10/22 Sex and Gender Information Value Date Recorded Sex Assigned at Not on file Legal Sex Male 2:32 AM MULTIMEDIA MANAGER Gender Identity Not on file Sexual Orientation Not on file Obstetrics History Last Filed Vital Signs Vital Sign Reading Time Taken Comments Blood Pressure 126/75 10/05/2022 1:56 AM CDT Pulse 95 10/05/2022 1:56 AM CDT Temperature 36.9 C (98.5 F) 10/04/2022 10:03 PM CDT Respiratory Rate 18 10/05/2022 1:56 AM CDT Oxygen Saturation 95% 10/05/2022 1:56 AM CDT Inhaled Oxygen Concentration - - Weight 88.9 kg (196 lb) 04/06/2022 6:12 PM MULTIMEDIA MANAGER Height 167.6 cm (5' 6 ) 03/20/2022 9:17 PM MULTIMEDIA MANAGER Body Mass Index 31.64 03/20/2022 9:17 PM MULTIMEDIA MANAGER Plan of Treatment Health Maintenance Due Date Last Done Comments Colon Cancer Screening-Colonoscopy 1970 Depression Screening 1970 Hepatitis C Screening 1970 Prostate Cancer Screening-PSA 1970 Regular Well Visit/Exam 18-64 1987 Zoster Vaccine (1 of 2) 2019 Covid-19 Vaccine ( season) 2023 11/17/2020, 11/17/2020, 04/16/2020, Additional history exists Influenza Vaccine (#1) 2023 3, 12/06/2021, 11/17/2020, Additional history exists DTaP/Tdap/Td Vaccine (4 - Td or Tdap) 10/19/2029 10/20/2019, 03/13/2008, 07/13/2007, Additional history exists Hepatitis B Screening Completed 04/17/1998 , 12/06/1997, 11/07/1997 Pneumococcal vaccine <65 Aged Out 019, 06/16/2008, 06/16/2008, Additional history exists No longer eligible based on patient's age to complete this topic Insurance [facility] OTHER Address: [address] [place] [phone] [employer] MEDICARE [facility] Address: [facility] [address] [place] [address] [facility] IDPA MEDICARE [facility] Address: [facility] [address] [place] [address] [employer] Advance Directives For more information, please contact: [phone] * Full Code (Latest Code Status on File) Date Activated Date Inactivated Comments 03/20/2022 8:23 PM 03/28/2022 5:42 PM Healthcare Agents on File Name Relationship Healthcare Agent [facility] Communication Nisha Miles [facility] Care Agent Care Teams Sand Cleaning Machine Operator Relationship Specialty Start Date End Date Michaela Sweet MD PCP - General 07/10/16
--- OUTSIDE RECORDS SUMMARY | 2024-03-22 18:21 | XMS_ITS | Encounter Summary ---
Author Organization [facility] Address [address] [place] [address] Phone Care Team Providers Care Computer Aided Design Drafter Name Role Phone Myke Aguilar MD Primary Care Provider [phone] Robbie Cruz MD Unavailable [phone] Ángela Peraza APRN, SLATE ROOFER Unavailable Encounter Details Date Type Department Care Team (Late st Contact Info) Description 04/25/2022 Nursing Facility [facility] [address] [place] [address] Ezio Dillon, PAC [address] [place] [address] Social History Tobacco Use Types Packs/Day [...] Progress Notes * Ezio Dillon, RED - 04/25/2022 11:15 AM CDT [facility] DISCHARGE SUMMARY Name: Geo Grimaldo Age: 52 y.o. : 1970 Attending Physician: No att. providers found Admission Date/Time: 03/29/2022 Expected Discharge Date: 04/25/2022 Primary Care Physician: MYKE AGUILAR MD Discharging Provider: RED Menjivar INSTRUCTIONS FOR PHYSICIANS ON FOLLOW UP AFTER DISCHARGE: Follow-up with PCP in 1-2 weeks Discharge Instructions: Discharge Condition: improved Disposition: Back to his [facility] Diet: Regular diet, pureed texture Activity: activity as tolerated Discharge Diagnoses: Generalized weakness and deconditioning, hypertension, neuropathy, GERD, Intellectual disability/Down syndrome/Trisomy 21 and underlying dementia without apparent behavioral disturbances, Depression and Schizophrenia, hypothyroidism, gout, vitamin-D deficiency, obesity, dysphagia Admitting Diagnoses: Pneumonia, acute kidney injury, generalized weakness and deconditioning, hypertension, neuropathy, GERD, Intellectual disability/Down syndrome/Trisomy 21 and underlying dementia without apparent behavioral disturbances, Depression and Schizophrenia, hypothyroidism, gout, vitamin-D deficiency, obesity, dysphagia SKILLED CARE COURSE: Geo Girmaldo was admitted to snf facility for acute care rehabilitation. Prior to coming to rehabilitation facility he was hospitalized at [facility] from 03/20 to 03/28 for pneumonia and was treated with steroid therapy and antibiotics. He came to the facility on supplemental oxygen. With time he was successfully weaned off of oxygen and has been maintaining normal O2 saturations on room air for the last couple weeks now. While at the rehabilitation facility, the patient received snf care and physical therapy rehabilitation. The patient has done well with their rehabilitation and has regained enough strength and ambulationthat it is felt that he can safely be discharged. He is felt to be at his prior level of function. He was evaluated by speech therapy during his time here as well, especially because he had an episode of vomiting just after eating. Speech therapy felt that he was an aspiration risk, largely due tohis impulsivity and eating too fast. He was changed to a pureed diet and has done well with this. His stay in the facility was otherwise uncomplicated and went well. Today he is lying comfortably in bed. Says he feels ???better?? . Denies any acute symptoms or concerns and is looking forward to going back to his ch[facility]. Exam Day of Discharge: Vital Signs: B/P: 126/72 Pulse: 72 Respirations: [...] unable to assess judgement and memory Lab / Imaging Review: Lab Results: None Imaging: None DISCHARGE PLAN: Patient will be discharging back to the [facility] later today. Home health for PT/OT will be ordered. Understands to continue all current medications as directed and follow up with PCP in 1-2 weeks. I have spent time coordinating care for this snf facility discharge: Greater than 30 minutes spent in coordinating care This note was dictated using [employer] fluency dictation system and there may be errors in security compliance engineer. Despite proof reading the note, there may be mistakes and I apologize for those. Signed: RED Menjivar, 04/25/2022, 11:16 AM CDT documented in this encounter Plan of Treatment Upcoming Encounters Date Type Department Care Team (Late st Contact Info) Description 04/08/2024 10:30 AM PHILOSOPHY SPECIALIST Office Visit [facility] - Primary Care - [place] [address] [place] [address] Aguila Graff, PAC [address] [place] [address] 09/07/2024 10:00 AM CDT [facility] - Neurology - [place] [address] [place] [address] Robbie Cruz MD [address] [place] [address] 11/10/2024 11:00 AM CDT Office Visit [facility] - Gastroenterology - [place] [address] [place] [address] Ángela Peraza APRN, SLATE ROOFER [address] [place] [address] documented as of this encounter Visit Diagnoses Not on filedocumented in this encounter Additional Health Concerns Infection Onset Date Last Indicated Resolved Time COVID - 19 01/24/2024 01/24/2024 01/24/2024 8:13 PM PHILOSOPHY SPECIALIST documented as of this encounter Care Teams Computer Aided Design Drafter Relationship Specialty Start Date End Date Myke Aguilar MD [address] [place] [address] PCP - General Family Medicine 11/09/20 Robbie Cruz MD [address] [place] [address] Consulting Physician Neurology 09/05/22 Ángela Peraza APRN, SLATE ROOFER [address] [place] [address] Nurse Practitioner Advanced Practice Nurse 11/12/22 documented as of this encounter
--- OUTSIDE RECORDS SUMMARY | 2024-03-22 18:21 | XMS_ITS | Encounter Summary ---
Author Organization [facility] Address [address] [place] [address] Phone Care Team Providers Care Cash Controller Name Role Phone Leigha Vega MD Primary Care Provider [phone] Robbie Cruz MD Unavailable [phone] Ángela Peraza APRN, CHAIRMAN Unavailable Encounter Details Date Type Department Care Team (Late st Contact Info) Description 04/08/2022 Nursing Facility [facility] [address] [place] [address] Ezio Dillon, PAC [address] [place] [address] Social History Tobacco Use Types Packs/Day [...] Progress Notes * Ezio Dillon, RED - 04/08/2022 12:13 PM CST [facility] PROGRESS NOTE Geo Grimaldo is a 52 y.o. male at [facility] for rehabilitation. Geo Grimaldo is a 52 y.o. male who has transferred to [facility] from [facility] for post-acute care and rehabilitation before returning to his f[facility]. The patient has intellectual disability due to [...] lying comfortably in bed. Says he feels ???fine???. Denies any acute symptoms or concerns. He is not wearing the oxygen currently. Lungs are clear. Nursing staff said he had to wear oxygen part of the day yesterday. Chart review shows that he had a choking event over the weekend and was sent to [facility] where apparently workup was unremarkable and he was sent back to the facility. Has been evaluated by speech therapy and is currently on a pureed diet. Nursing staff has no concerns about the [...] COLON, HEMORRHOIDS; Surgeon: Audi Almaguer MD; Location: [facility]; Service: Gastroenterology ??? FOOT SURGERY X2, MOM STATES PT WAS IN 20'S ??? TYMPANOSTOMY TUBE PLACEMENT PT MOTHER STATES WHEN PT WAS A BABY ??? UPPER GASTROINTESTINAL ENDOSCOPY [id number] ??? UPPER GASTROINTESTINAL ENDOSCOPY Left 09/03/2016 Procedure: EGD ERIC TEST, SMALL BOWEL BIOPSY, DUODENAL BULB LESION BIOPSY, DISTAL, MID, AND PROXIMALESOPHAGEAL BIOPSIES; Surgeon: Audi Almaguer MD; Location: [facility]; Service: Gastroenterology Review of Systems: A 14 point comprehensive review of systems was negative except what is documented in interval history above. Objective: Exam: Vital Signs: B/P: 114/74 Pulse: 76 Respirations: 18 Temperature: 98 General: Well developed, well nourished, in no [...] Speech therapy following. Downgraded to pureed diet. 1. Pneumonia. The patient The patient required [...] He will be going back to his fpc. Apparently fpc is not very comfortablewith the supplemental oxygen so he either needs to be weaned off of it completely or needs to be very clear guidelines on it. This note was dictated using [employer]*Working[employer] fluency dictation system and there may be errors in coat checker. Despite proof reading the note, there may be mistakes and I apologize for those. By: RED Menjivar, 04/08/2022 12:20 PM INSPECTOR GOVERNMENT PROPERTY ECTOR GOVERNMENT PROPERTY documented in this encounter Plan of Treatment Upcoming Encounters Date Type Department Care Team (Late st Contact Info) Description 04/08/2024 10:30 AM INSPECTOR GOVERNMENT PROPERTY Office Visit [facility] - Primary Care - [place] [address] [place] [address] Aguila Graff, PAC [address] [place] [phone] 09/07/2024 10:00 AM CDT Office Visit [facility] - Neurology - [place] [address] [place] [address] Robbie Cruz MD [address] [place] [address] 11/10/2024 11:00 AM CDT Office Visit [facility] - Gastroenterology - [place] [address] [place] [address] Ángela Peraza APRN, CHAIRMAN [address] [place] [address] documented as of this encounter Visit Diagnoses Not on filedocumented in this encounter Additional Health Concerns Infection Onset Date Last Indicated Resolved Time COVID - 19 01/24/2024 01/24/2024 01/24/2024 8:13 PM INSPECTOR GOVERNMENT PROPERTY documented as of this encounter Care Teams Cash Controller Relationship Specialty Start Date End Date Leigha Vega MD [address] [place] [address] PCP - General Family Medicine 11/09/20 Robbie Cruz MD [address] [place] [phone] Consulting Physician Neurology 09/05/22 Ángela Peraza APRN, CHAIRMAN [address] [place] [address] Nurse Practitioner Advanced Practice Nurse 11/12/22 documented as of this encounter
--- OUTSIDE RECORDS SUMMARY | 2024-03-22 18:21 | XMS_ITS | Clinical Summary ---
Author Organization [facility] Address [address] [place] [address] Phone Care Team Providers Care Painter Plate Name Role Phone Leigha Vega MD Primary Care Provider [phone] Robbie Cruz MD Unavailable [phone] Ángela Peraza APRN, COMPUTATIONAL LINGUIST Unavailable Allergies Active Allergy Reactions Criticality Noted Date Comments Morphine Unknown 01/04/2016 Medications allopurinol (ZYLOPRIM) 300 MG TabletIndications :Primary Gout Take 300 mg by mouth daily. Active loperamide (IMODIUM) 2 MG Capsule Take by mouth daily as needed. Active folic acid (FOLVITE) 1 MG Tablet Take 1 mg by mouth daily. Active OLANZapine (ZYPREXA) 7.5 MG Tablet Take 5 mg by mouth nightly. Active divalproex (DEPAKOTE) 500 MG Tablet Delayed Response Take 500 mg by mouth 2 times daily. Active Aspirin 81 MG Tablet Take 81 mg by mouth daily. Active B Complex Vitamins (VITAMIN B COMPLEX PO) Take 1 Cap by mouth daily. Active CETIRIZINE HCL PO Take 10 mg by mouth daily. Active famotidine (PEPCID) 40 MG Tablet Take 40 mg by mouth daily. Active levothyroxine (SYNTHROID) 137 MCG Tablet Take 137 mcg by mouth daily. Active metoprolol tartrate (LOPRESSOR) 25 MG Tablet Take 12.5 mg by mouth 2 times daily. Active polyvinyl alcohol (LIQUIFILM/ARTIFI CIAL TEARS) 1.4 % Solution Place 1 Drop in affected eye(s) 3 times daily. OU Active Calcium Carbonate-Vitamin D (OYSTER SHELL CALCIUM/D) 500-200 MG-UNIT Tablet Take 1 Tablet by mouth 3 times daily. Last dispense date of 10/28/23 for 90 day supply Active selenium sulfide (SELSUN) 2.5 % LotionIndications :Seborrheic Dermatitis of Scalp Apply nightly. Apply, leave 10min, rinse. Use daily x 7 days, then monthly x 3 months. Active terbinafine (LAMISIL) 1 % CreamIndications: Applied to hairline as antifungal Apply nightly. Acti ve aluminum & magnesium hydroxide-simethi cone (MAALOX, MYLANTA) 200-200-20 MG/5ML Suspension Take 30 mL by mouth every 4 hours as needed. Active diphenhydrAMINE (BENADRYL) 25 MG Capsule Take 25 mg by mouth every 6 hours as needed. Active albuterol 108 (90 Base) MCG/ACT Aerosol Solution take 1-2 Puffs by inhalation every 4 hours as needed. Active guaiFENesin (ROBITUSSIN) 100 MG/5ML Syrup Take 10 mL by mouth every 4 hours as needed. Active fluticasone (FLONASE) 50 MCG/ACT Suspension by Nasal route. 8 Active montelukast (SINGULAIR) 10 MG Tablet Take by mouth. 8 Active donepezil (ARICEPT) 10 MG Tablet Take 1 Tab by mouth daily. 30 Tab 5 0 Active acetaminophen (TYLENOL) 650 MG Tablet Controlled Release Take 650 mg by mouth every 6 hours as needed. Active Multiple Vitamins-Minerals (THEREMS-H) Tablet Take by mouth. Activ e gabapentin (NEURONTIN) 100 MG Capsule Take 1 Capsule by mouth 3 times daily. 90 Capsule 1 Active losartan (COZAAR) 25 MG Tablet Take 25 mg by mouth daily. Active polyethylene glycol (GLYCOLAX) 17 GM/SCOOP PowderIndications :Chronic constipation DISSOLVE 1 CAPFUL (17 GRAMS) IN 8 OUNCES OF LIQUID & TAKE BY MOUTH EVERY OTHER DAY. 8AM 510 g 10 3 Active atorvastatin (LIPITOR) 40 MG Tablet 4 Active carboxymethylcell ulose sodium (REFRESH) 0.5 % Solution Place 1 Drop in affected eye(s). 4 Active Emollient (CeraVe PM) Lotion Apply 1 Dose. Activ e ondansetron (ZOFRAN-ODT) 4 MG TABLET DISPERSIBLE Take 1 Tablet by mouth every 6 hours as needed for Nausea - 1st line. 10 Tablet 4 Active senna (SENOKOT) 8.6 MG Tablet Take 1 Tablet by mouth daily. 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 10/03/2017 Severe intellectual disabilities 01/24/2017 Trisomy 21, Down syndrome 01/22/2017 CAP (community acquired pneumonia) 01/22/2017 Schizophrenia 01/22/2017 Gout 01/22/2017 Conductive hearing loss Overview (10/20/2014): External ear Cerumen impaction Overview (10/20/2014): Both ears Dementia Peptic ulcer Encounters Date Type Department Care Team Description 01/24/2024 7:[address] JUDGE - 01/27/2024 3:[address] JUDGE Hospital Encounter [facility] Med Surg [address] [address] Dat Ortiz MD Smith, Janeth Stapleton, CYTOLOGY MANAGER, COMPUTATIONAL LINGUIST Marco Wilson MD Severe sepsis with septic shock (CODE) ([facility]) Discharge Disposition: Discharged to home or Selfcare 01/24/2024 Travel from Last 3 Months Immunizations Immunization Administration Dates Next Due Covid-19, Mrna, Lnp-s, Pf, 3 0 Mcg/0.3 Ml Dose (GOkey) 11/17/2020,04/16/2020,03/26/2020 Hepatitis B Vaccine,unspecif ied Formulation 12/06/1997,11/07/1997 Hepatitis B-CpG 04/17/1998 Influenza Vaccine greater than 3 yrs 11/24/2012 Influenza Vaccine, Quadrivalent, PF 10/12,12/06/2021,11/17/2020,2019,11/07/2017 Influenza, Injectable, Quadrivalent 11/10,10/21/2016,12/14/2015,2015 Influenza, Seasonal, Injecta ble, Undefined 11/11/2014,11/11/2013,11/24/2012 Influenza,Split Virus,Trivalent,Injectable,PF 01/27/2024() Pneumococcal Vaccine Adult - 23 Valent 06/09/2018,02/11/2008 Pneumococcal Vaccine, Unspec ified Formulation 06/16/2008,03/16/2003,12/08/1997 TB Skin Test 09/10/2012 TD VACCINE 03/13/2008 TDAP Vaccine 10/20/2019,07/13/2007 Tetanus Toxoid, Unspecified Formulation 11/07/1997 Family History Medical History Relation Name Comments Hypertension Mother MAUDE GARDUNO Multiple Sclerosis Mother MAUDE GARDUNO Relation Name Status Comments Mother MAUDE GARDUNO Alive Social History Tobacco Use Types Packs/Day Years Used Date Smoking Tobacco: Never Smokeless Tobacco: Never Tobacco Cessation:Counseling Given: Not Answered Alcohol Use Standard Drinks/Week Comments No 0 (1 standard drink = 0.6 oz pur e alcohol) [facility] [employer] Answer Date Recorded In the past 12 months has Cat Amania, gas, oil, or water Duxter threatened to shut off services in your home? Patient unable to answer 01/25/2024 Overall Financial Resource Strain (CARDIA) Answe r Date Recorded How hard is it for you to pa y for the very basics like food, housing, medical care, and heating? Patient unable to answer 01/25/2024 [facility] Occupat ional Health - Occupational Stress Questionnaire Answer Date Recorded Do you feel stress - tense, restless, nervous, or anxious, or unable to sleep at night because your mind is troubled all the time - these days? Patient unable to answer 01/25/2024 Exercise Vital Sign Answer Date Recorde d On average, how many days pe r week do you engage in moderate to strenuous exercise (like a brisk walk)? Patient unable to answer 01/25/2024 On average, how many minutes do you engage in exercise at this level? Patient unable to answer 01/25/2024 Hunger Vital Sign Answer Date Recorded Within the past 12 months, y ou worried that your food would run out before you got the money to buy more. Patient unable to answer 01/25/2024 Within the past 12 months, t he food you bought just didn't last and you didn't have money to get more. Patient unable to answer 01/25/2024 PRAPARE - Transportation Answer Date Re corded In the past 12 months, has l ack of transportation kept you from medical appointments or from getting medications? Patient unable to answer 01/25/2024 In the past 12 months, has l ack of transportation kept you from meetings, work, or from getting things needed for daily living? Patient unable to answer 01/25/2024 Housing Stability Vital Sign Answer Neeraj e Recorded In the last 12 months, was t here a time when you were not able to pay the mortgage or rent on time? Patient unable to answer 01/25/2024 In the past 12 months, how m any times have you moved where you were living? 0 01/25/2024 At any time in the past 12 m [facility], were you homeless or living in a jail (including now)? Patient unable to answer 01/25/2024 Sexually Active Control Partners Comments Not Currently Sex and Gender Information Value Date Recorded Sex Assigned at Not on file Legal Sex Male 8:02 PM CDT Gender Identity Not on file Sexual Orientation Not on file Last Filed Vital Signs Vital Sign Reading Time Taken Comments Blood Pressure 126/64 01/27/2024 5:[address] JUDGE Pulse 85 01/26/2024 3:[address] JUDGE Temperature 37.3 C (99.1 F) 01/27/2024 5:[address] JUDGE Respiratory Rate 18 01/27/2024 5:[address] JUDGE Oxygen Saturation 92% 01/27/2024 7:[address] JUDGE Inhaled Oxygen Concentration - - Weight 86.7 kg (191 lb 2.2 oz) 01/25/2024 1:[address] A M [address] JUDGE Height 160 cm (5' 3 ) 01/25/2024 1:[address] JUDGE Body Mass Index 33.86 01/25/2024 1:[address] JUDGE Plan of Treatment Upcoming Encounters Date Type Department Care Team (Late st Contact Info) Description 04/08/2024 10:[address] JUDGE [facility] [place] [address] [place] [address] Aguila Graff PAC [address] [place] [address] 09/07/2024 10:00 AM CDT [facility] [place] [address] [place] [id number] Robbie Cruz MD [address] [place] [address] 11/10/2024 11:00 AM CDT Office Visit [facility] - Gastroenterology - [place] [address] [place] [address] Ángela Peraza APRN, COMPUTATIONAL LINGUIST [address] [place] [address] Health Maintenance Due Date Last Done Comments Hepatitis C Virus (HCV) Screening 1969 Down Syndrome: Karyotyping Documentation 1969 Down Syndrome: Eye Exam 1970 Down Syndrome: Hearing Exam 1970 Down Syndrome: Iron Studies 1970 Down Syndrome: Sleep Study 1972 Cologuard 2019 Immunochemical Fecal Occult Blood 2019 Zoster Immunization (1 of 2) 2019 Pneumococcal Immunization (50+ years) (2 of 2 - PCV) 06/10/2019 06/09/2018, 06/16/2008, 06/16/2008, Additional history exists Influenza Immunization (#1) 10/12/202310/12, 12/06/2021, 11/17/2020, Additional history exists Down Syndrome: TSH Level 01/25/2025 024, 09/03/2019, 01/25/2017 Down Syndrome: Complete Blood Count 01/26/2025 01/27/2024, 01/27/2024, 01/26/2024, Additional history exists Colonoscopy 10/09/2027 10/08/2017 Colorectal Cancer Screening 10/09/2027 Td Immunization Every 10 Years (Adults With 1 Tdap) 10/19/2029 10/20/2019, 03/13/2008, 07/13/2007, Additional history exists Respiratory Syncytial Virus (RSV) Immunization (Adult) (1 - 1-dose 75+ series) 2044 10/08/2017 Hepatitis B Immunization Completed 999, 12/06/1997, 11/07/1997 Pneumococcal Immunization Combined Discontinued 06/09/2018, 06/16/2008, 06/16/2008, Additional history exists DTaP/Tdap/Td Immunization Discontinued 2019, 03/13/2008, 07/13/2007, Additional history exists SARS-COV-2 Immunization Completed 11/20/19 24, 01/29/2023, 12/06/2021, Additional history exists Down Syndrome: Echocardiogram Completed 11/26/2023, 03/15/2016 Meningococcal Immunization (ACWY) Aged Out No longer eligible based on patient's age to complete this topic Rotavirus Immunization Aged Out No lo nger eligible based on patient's age to complete this topic Procedures Procedure Name Priority Date/Time Associated Diagnosis Comments CBC WITH AUTO DIFFERENTIAL Routine 01/27/2024 5:[address] JUDGE COMPLETE BLOOD COUNT (CBC) WITH DIFF Routine 01/27/2024 5:[address] JUDGE HEPATIC FUNCTION PANEL Routine 01/27/2024 5:[address] JUDGE BASIC METABOLIC PANEL W/ CALCIUM TOTAL Routine 01/27/2024 5:[address] JUDGE US RENAL COMPLETE Routine 01/26/2024 8:[address] JUDGE MANUAL DIFFERENTIAL Routine 01/26/2024 5 :[address] JUDGE CBC WITH AUTO DIFFERENTIAL Routine 01/26/2024 5:[address] JUDGE COMPLETE BLOOD COUNT (CBC) WITH DIFF Routine 01/26/2024 5:[address] JUDGE THYROID STIMULATING HORMONE (TSH) Routine 01/26/2024 4:[address] JUDGE BASIC METABOLIC PANEL W/ CALCIUM TOTAL Routine 01/26/2024 4:[address] JUDGE RHYTHM STRIP 01/26/2024 12:[address] JUDGE RHYTHM STRIP 01/26/2024 12:[address] JUDGE URINALYSIS REFLEX IF INDICATED BY ABNORMAL RESULTS STAT 01/25/2024 6:[address] JUDGE UR POTASSIUM (K) RANDOM Routine 01/25/2024 6:[address] JUDGE UR SODIUM (NA) RANDOM Routine 01/25/2024 6:[address] JUDGE UR OSMOLALITY Routine 01/25/2024 6:[address] JUDGE MANUAL DIFFERENTIAL Routine 01/25/2024 5 :[address] JUDGE CBC WITH AUTO DIFFERENTIAL Routine 01/25/2024 5:[address] JUDGE CMP (COMPREHENSIVE METABOLIC PANEL) Routine 01/25/2024 5:[address] JUDGE COMPLETE BLOOD COUNT (CBC) WITH DIFF Routine 01/25/2024 5:[address] JUDGE MRSA NASAL PCR Routine 01/25/2024 5:[address] JUDGE MRSA NASAL BY PCR Routine 01/25/2024 5:[address] JUDGE RHYTHM STRIP 01/25/2024 12:[address] JUDGE RHYTHM STRIP 01/25/2024 12:[address] JUDGE RHYTHM STRIP 01/25/2024 12:[address] JUDGE LACTIC ACID (LACTATE) STAT 01/24/2024 10:[address] JUDGE XR CHEST SINGLE VIEW PORTABLE STAT 01/24/2024 8:[address] JUDGE GOLD TOP TUBE STAT 01/24/2024 7:[address] JUDGE BLUE TOP TUBE STAT 01/24/2024 7:[address] JUDGE CBC WITH AUTO DIFFERENTIAL STAT 01/24/2024 7:[address] JUDGE EXTRA TUBES STAT 01/24/2024 7:[address] JUDGE LACTIC ACID (LACTATE) STAT 01/24/2024 7:[address] JUDGE CMP (COMPREHENSIVE METABOLIC PANEL) STAT 01/24/2024 7:[address] JUDGE COMPLETE BLOOD COUNT (CBC) WITH DIFF STAT 01/24/2024 7:[address] JUDGE CULTURE, BLOOD STAT 01/24/2024 7:[address] JUDGE CULTURE, BLOOD STAT 01/24/2024 7:[address] JUDGE CRITICAL CARE Routine 01/24/2024 7:[address] JUDGE EKG 12 LEAD STAT 01/24/2024 7:[address] JUDGE GROUP A STREP BY PCR STAT 01/24/2024 7:[address] JUDGE RSV,SARS-COV-2,INFLU SANA A&B BY PCR STAT 01/24/2024 7:[address] JUDGE EKG SCAN 01/24/2024 12:[address] JUDGE RHYTHM STRIP 01/24/2024 12:[address] JUDGE ADULT TRANS THORACIC ECHO 2D COMPLETE Routine 03/15/2016 8:[address] JUDGE Chest pain, unspecified Hyperlipidemia, unspecified hyperlipidemia type from Last 3 Months or Most Recently Relevant to Health Maintenance Results * (ABNORMAL) CBC with Auto Differential (01/27/2024 5:[address] JUDGE) Only the most recent of4 resultswithin the time period is included. [facility] WBC 10.66 4.00 - 12.00 10(3)/[facility] 01/27/2024 6:41 AM [facility] RBC 3.44(L) 4.40 - 5.80 10(6)/[facility] 01/27/2024 6:41 AM [facility] HEMOGLOBIN (HGB) 11.9(L) 13.0 - 16.5 g/dL 01/27/2024 6:41 AM [facility] HEMATOCRIT (HCT) 35.4(L) 38.0 - 50.0 % 01/27/2024 6:41 AM [facility] MCV 102.9(H) 82.0 - 96.0 fL 01/27/2024 6:41 AM [facility] MCH 34.6(H) 26.0 - 32.0 pg 01/27/2024 6:41 AM [facility] MCHC 33.6 31.0 - 36.0 g/dL 01/27/2024 6:41 AM [facility] PLATELET COUNT 185 140 - 440 10(3)/[facility] 01/27/2024 6:41 AM [facility] RDW 14.6 11.8 - 15.5 % 01/27/2024 6:41 AM [facility] MPV 10.0 8.0 - 12.6 fL 01/27/2024 6:41 AM [facility] NEUTROPHILS 59.2 40.0 - 68.0 % 01/27/2024 6:41 AM [facility] LYMPHOCYTES 26.4 19.0 - 49.0 % 01/27/2024 6:41 AM [facility] MONOCYTES 12.4 3.0 - 13.0 % 01/27/2024 6:41 AM [facility] EOSINOPHILS 0.9 0.0 - 8.0 % 01/27/2024 6:41 AM [facility] BASOPHILS 1.1(H) 0.0 - 1.0 % 01/27/2024 6:[address] JUDGE [facility] ABSOLUTE NEUTROPHILS 6.31(H) 1.40 - 5.30 10(3)/[facility] 01/27/2024 6:[address] JUDGE [facility] ABSOLUTE LYMPHOCYTES 2.81 0.90 - 3.30 10(3)/[facility] 01/27/2024 6:[address] JUDGE [facility] ABSOLUTE MONOCYTES 1.32(H) 0.10 - 0.90 10(3)/[facility] 01/27/2024 6:[address] JUDGE [facility] ABSOLUTE EOSINOPHIL 0.10 0.00 - 0.50 10(3)/[facility] 01/27/2024 6:[address] JUDGE [facility] ABSOLUTE BASOPHILS 0.12(H) 0.00 - 0.10 10(3)/[facility] 01/27/2024 6:[address] JUDGE [facility] NRBC PER 100 WBC 0 01/27/20 6:41 AM [facility] Blood Venipuncture / Unknown 01/27/2024 5:[address] JUDGE 01/27/2024 6:[address] JUDGE us Vicki Mayer APRN, CNP HEMATOLOGY ORDERABLES Final Result [facility] [address] [place] [address] * (ABNORMAL) Hepatic Function Panel (01/27/2024 5:[address] JUDGE) T BILI 0.3 0.2 - 1.2 mg/dL 01/27/2024 6:[address] JUDGE [facility] BILIRUBIN,DIRECT 0.1 0.0 - 0.5 mg/dL 01/27/2024 6:[address] JUDGE [facility] ALKALINE PHOSPHATASE 116 40 - 150 U/L 01/27/2024 6:59 AM [facility] SGOT (AST) 107(H) 5 - 34 U/L 01/27/2024 6:[address] JUDGE [facility] SGPT (ALT) 98(H) 0 - 55 U/L 01/27/2024 6:[address] JUDGE [facility] TOTAL PROTEIN 6.4 6.3 - 8.2 g/dL 01/27/2024 6:59 AM [facility] ALBUMIN 3.1(L) 3.5 - 5.0 g/dL 01/27/2024 6:59 AM [facility] Blood Venipuncture / Unknown 01/27/2024 5:[address] JUDGE 01/27/2024 6:[address] JUDGE us Gage Garrison MD CHEMISTRY ORDERABLES Final Result [facility] [address] [place] [address] * (ABNORMAL) BMP with Ca, Total (01/27/2024 5:[address] JUDGE) Only the most recent of2 resultswithin the time period is included. SODIUM 142 136 - 145 mmol/L 01/27/2024 6:59 AM [facility] POTASSIUM 4.2 3.5 - 5.1 mmol/L 01/27/2024 6:59 AM [facility] CHLORIDE 107 98 - 107 mmol/L 01/27/2024 6:59 AM [facility] CO2, VENOUS 24 22 - 30 mmol/L 01/27/2024 6:59 AM [facility] ANION GAP 15.2 <18.0 mmol/L 01/27/2024 6:59 AM [facility] GLUCOSE 89 70 - 99 mg/dL 01/27/2024 6:59 AM [facility] BUN 18 8 - 26 mg/dL 01/27/2024 6:59 AM [facility] CREATININE, BLOOD 1.00 0.70 - 1.30 mg/dL 01/27/2024 6:59 AM [facility] BUN/CREATININE RATIO 18 12 - 20 ratio 01/27/2024 6:[address] JUDGE [facility] CALCIUM 8.5(L) 8.7 - 10.5 mg/dL 01/27/2024 6:[address] JUDGE [facility] GFR, ESTIMATED >60 >=60 01/27/2024 6:[address] JUDGE [facility] Comment: Creatinine Clearance is the preferred criteria for selecting drug dose adjustments in renally impaired patients. The GFR is provided as additional pertinent clinical information. GFR is reported in mL/min/1.73 sq m. Calculation based on the Chronic Kidney Disease Epidemiology Collaboration (CKD- EPI) equation refit without adjustment for race. GFR, EST. >60 >=60 024 6:[address] JUDGE [facility] GFR, EST. NONAFRICAN >60 >=60 01/27/2024 6:[address] JUDGE [facility] Blood Venipuncture / Unknown 01/27/2024 5:[address] JUDGE 01/27/2024 6:[address] JUDGE us Tanya Pan CYTOLOGY MANAGER, COMPUTATIONAL LINGUIST CHEMISTRY ORDERABLES Maria Guadalupe l Result [facility] [address] [place] [address] * US RENAL COMPLETE (01/26/2024 8:[address] JUDGE) Anatomical Region Laterality Modality , Abdomen N/A Ultrasound 01/26/2024 11:[address] JUDGE Impressions 01/26/2024 11:[address] JUDGE IMPRESSION: Unremarkable sonographic appearance of the kidneys within the limits of the exam. No hydronephrosis. Urinary bladder is mildly thick-walled which could be due to underdistention or cystitis. Correlation with urinalysis if clinically indicated. Ureteral jets are not demonstrated. Narrative 01/26/2024 11:[address] JUDGE EXAM DESCRIPTION: US RENAL COMPLETE REASON FOR STUDY: elevated creatinine 3.48 TECHNIQUE: Ultrasound of the kidneys and urinary bladder was performed with grayscale imaging. COMPARISON: Abdomen pelvis CT 01/22/2017 FINDINGS: Suboptimal evaluation of the kidneys due to overlying bowel gas. RIGHT KIDNEY: The right kidney measures 13.6 cm in length. Maintained cortical thickness and echogenicity. No hydronephrosis. LEFT KIDNEY: The left kidney measures 11.6 cm in length. Maintained cortical thickness and echogenicity. No hydronephrosis. URINARY BLADDER: Urinary bladder appears mildly thick-walled but was not measured. The bilateral ureteral jets are not demonstrated. OTHER: No other additional findings. THIS IS AN ELECTRONICALLY VERIFIED FINAL REPORT 01/26/2024 11:41 AM - Electronically signed by Saeed Zaman M.D. AG: JOY Report ID: [id number] Reading Location: [id number] Procedure Note Saeed Zaman MD - 01/26/2024 EXAM DESCRIPTION: US RENAL COMPLETE REASON FOR STUDY: elevated creatinine 3.48 TECHNIQUE: Ultrasound of the kidneys and urinary bladder was performed with grayscale imaging. COMPARISON: Abdomen pelvis CT 01/22/2017 FINDINGS: Suboptimal evaluation of the kidneys due to overlying bowel gas. RIGHT KIDNEY: The right kidney measures 13.6 cm in length. Maintained cortical thickness and echogenicity. No hydronephrosis. LEFT KIDNEY: The left kidney measures 11.6 cm in length. Maintained cortical thickness and echogenicity. No hydronephrosis. URINARY BLADDER: Urinary bladder appears mildly thick-walled but was not measured. The bilateral ureteral jets are not demonstrated. OTHER: No other additional findings. THIS IS AN ELECTRONICALLY VERIFIED FINAL REPORT 01/26/2024 11:41 AM - Electronically signed by Saeed Zaman M.D. AG: JOY Report ID: [id number] Reading Location: [id number] IMPRESSION: Unremarkable sonographic appearance of the kidneys within the limits of the exam. No hydronephrosis. Urinary bladder is mildly thick-walled which could be due to underdistention or cystitis. Correlation with urinalysis if clinically indicated. Ureteral jets are not demonstrated. us Tanya Pan CYTOLOGY MANAGER, COMPUTATIONAL LINGUIST [facility] US ORDERABLES Final R esult * (ABNORMAL) Manual Differential (01/26/2024 5:[address] JUDGE) Only the most recent of2 resultswithin the time period is included. BANDS % 1.0 % 01/26/2024 6:[address] JUDGE [facility] NEUTROPHILS % 68.0 40.0 - 68.0 % 01/26/2024 6:[address] JUDGE [facility] LYMPHOCYTES % 23.0 19.0 - 49.0 % 01/26/2024 6:[address] JUDGE [facility] MONOCYTES % 8.0 3.0 - 13.0 % 01/26/2024 6:[address] JUDGE [facility] NEUTROPHILS ABSOLUTE 11.06(H) 1.50 - 6.70 10(3)/mcL 01/26/2024 6:[address] JUDGE [facility] LYMPHOCYTES ABSOLUTE 3.69(H) 0.90 - 3.30 10(3)/[facility] 01/26/2024 6:[address] JUDGE [facility] MONOCYTES ABSOLUTE 1.28(H) 0.10 - 0.90 10(3)/mcL 01/26/2024 6:[address] JUDGE [facility] POLYCHROMASIA 1+ 01/26/2024 6:[address] JUDGE [facility] WBC MORPH STATUS Normal 01/26/20 24 6:[address] JUDGE [facility] [facility] STATUS Normal 6:[address] JUDGE [facility] Blood Venipuncture / Unknown 01/26/2024 5:[address] JUDGE 01/26/2024 5:[address] JUDGE us Tanya Pan APRN, CNP HEMATOLOGY ORDERABLES Fin al Result [facility] [place] [address] * Thyroid Stimulating Hormone (TSH) (01/26/2024 4:[address] JUDGE) Pathologist [facility] TSH 2.401 0.300 - 5.000 mIU/L 01/26/2024 6:[address] JUDGE [facility] Blood Venipuncture / Unknown 01/26/2024 4:[address] JUDGE 01/26/2024 5:[address] JUDGE Gage Garrison MD CHEMISTRY ORDERABLES Final Result Performing Organization Address City/[facility] Co de Phone Number [facility] [place] [address] * RHYTHM STRIP (01/26/2024 12:[address] JUDGE) Only the most recent of6 resultswithin the time period is included. 01/26/2024 Provider Scan IMG ECG ORDERABLES Final Result Performing Organization Address [facility] Co de Phone Number RESULTING AGENCY * (ABNORMAL) Urinalysis with Reflex (01/25/2024 6:[address] JUDGE) [facility] SPECIFIC GRAVITY 1.010 1.003 - 1.030 01/25/2024 7:[address] JUDGE [facility] URINE PH 6.0 5.0 - 9.0 01/25/2024 7:04 AM [facility] WBC ESTERASE 25 /ul(A) Negative 01/25/2024 7:[address] JUDGE [facility] NITRITE Negative Negative 01/25/2024 7:04 AM [facility] PROTEIN, RANDOM URINE 30 mg/dL(A) Negative 01/25/2024 7:04 AM [facility] URINE GLUCOSE, QUAL Negative Negative 01/25/2024 7:04 AM [facility] URINE KETONES 5 mg/dL(A) Negative 01/25/2024 7:04 AM [facility] UROBILINOGEN Normal Normal mg/dL 01/25/2024 7:[address] JUDGE [facility] URINE BLOOD 250 /uL(A) Negative talon/ul 01/25/2024 7:[address] JUDGE [facility] URINALYSIS COLOR Yellow 01/25/20 7:[address] JUDGE [facility] URINALYSIS CLARITY Clear 01/25/2024 7:[address] JUDGE [facility] WBC (Urine) 0-5 Negative, 0-5 /hpf 01/25/2024 7:[address] JUDGE [facility] URINE RBC'S 6-10(A) Negative, 0-2 /hpf 01/25/2024 7:[address] JUDGE [facility] EPITHELIAL CELLS Occasional /lpf 01/25/20 7:[address] JUDGE [facility] BACTERIA, URINE Few(A) Negative /hpf 01/25/2024 7:[address] JUDGE [facility] Urine URINE SPECIMEN / Unknown Non-Phlebotomy Collection / Unknown 01/25/2024 6:[address] JUDGE 01/25/2024 6:[address] JUDGE us Janeth Yeh CYTOLOGY MANAGER, GUILLERMO URINE ORDERABLES Final Result Performing Organization Address City/[facility]/ZIP Co de Phone Number [facility] [address] [place] [address] * Ur Sodium (Na) Random (01/25/2024 6:[address] JUDGE) SODIUM, RANDOM URINE 54 mmol/L 01/25/2024 3:[address] JUDGE [facility] Comment:No reference range h as been established. Consider Clinical Correlation. Urine Non-Phlebotomy Collection / Unknown 01/25/2024 6:[address] JUDGE 01/25/2024 6:[address] JUDGE us Tanya Pan CYTOLOGY MANAGER, COMPUTATIONAL LINGUIST URINE ORDERABLES Final Re sult Performing Organization Address City/[facility]/ZIP Co de Phone Number [facility] [address] [place] [address], [place] * Ur Potassium (K) Random (01/25/2024 6:[address] JUDGE) UR POTASSIUM, RANDOM 67 mmol/L 01/25/2024 3:[address] JUDGE [facility] Comment:No reference range h as been established. Consider Clinical Correlation. Urine Non-Phlebotomy Collection / Unknown 01/25/2024 6:[address] JUDGE 01/25/2024 6:[address] JUDGE us Tanya Pan APRN, GUILLERMO URINE ORDERABLES Final Re sult [facility] [address] [place] [address], [place] * Ur Osmolality (01/25/2024 6:[address] JUDGE) OSMOLALITY, URINE 530 50 - 1,400 mOsm/kg 01/25/2024 3:[address] JUDGE [facility] Urine Non-Phlebotomy Collection / Unknown 01/25/2024 6:[address] JUDGE 01/25/2024 6:[address] JUDGE us Tanya Pan APRN, GUILLERMO URINE ORDERABLES Final Re sult Performing Organization Address City/[facility]/ZIP Co de Phone Number [facility] [address] [place] [address], [place] * MRSA NASAL PCR (01/25/2024 5:[address] JUDGE) Pathologist [facility] MRSA PCR RESULT Negative Negative, Invalid 01/25/2024 6:[address] JUDGE [facility] Other NASOPHARYNGEAL SWAB / Unknown Non-Phlebotomy Collection / Unknown 01/25/2024 5:[address] JUDGE 01/25/2024 5:[address] JUDGE us Janeth Yeh APRN, GUILLERMO MICROBIOLOGY - GENERAL ORDERABLES Final Result [facility] [address] [place] [address] * (ABNORMAL) CMP (Comprehensive Metabolic Panel) (01/25/2024 5:[address] JUDGE) Only the most recent of2 resultswithin the time period is included. SODIUM 139 136 - 145 mmol/L 01/25/2024 5:49 AM [facility] POTASSIUM 4.3 3.5 - 5.1 mmol/L 01/25/2024 5:49 AM [facility] CHLORIDE 109(H) 98 - 107 mmol/L 01/25/2024 5:49 AM [facility] CO2, VENOUS 23 22 - 30 mmol/L 01/25/2024 5:49 AM [facility] ANION GAP 11.3 <18.0 mmol/L 01/25/2024 5:49 AM [facility] GLUCOSE 103(H) 70 - 99 mg/dL 01/25/2024 5:49 AM [facility] BUN 35(H) 8 - 26 mg/dL 01/25/2024 5:49 AM [facility] CREATININE, BLOOD 2.62(H) 0.70 - 1.30 mg/dL 01/25/2024 5:49 AM [facility] BUN/CREATININE RATIO 13 12 - 20 ratio 01/25/2024 5:49 AM [facility] TOTAL PROTEIN 5.7(L) 6.3 - 8.2 g/dL 01/25/2024 5:49 AM [facility] ALBUMIN 2.9(L) 3.5 - 5.0 g/dL 01/25/2024 5:49 AM [facility] A/G RATIO 1.0 1.0 - 2.2 01/25/2024 5:49 AM [facility] CALCIUM 7.7(L) 8.7 - 10.5 mg/dL 01/25/2024 5:49 AM [facility] T BILI 0.3 0.2 - 1.2 mg/dL 01/25/2024 5:[address] JUDGE [facility] SGOT (AST) 128(H) 5 - 34 U/L 01/25/2024 5:[address] JUDGE [facility] SGPT (ALT) 61(H) 0 - 55 U/L 01/25/2024 5:[address] JUDGE [facility] ALKALINE PHOSPHATASE 77 40 - 150 U/L 01/25/2024 5:[address] JUDGE [facility] GFR, ESTIMATED 28(L) >=60 01/25/2024 5:[address] JUDGE [facility] Comment: Creatinine Clearance is the preferred criteria for selecting drug dose adjustments in renally impaired patients. The GFR is provided as additional pertinent clinical information. GFR is reported in mL/min/1.73 sq m. Calculation based on the Chronic Kidney Disease Epidemiology Collaboration (CKD- EPI) equation refit without adjustment for race. GFR, EST. 31(L) >=60 024 5:[address] JUDGE [facility] GFR, EST. NONAFRICAN 26(L) >=60 01/25/2024 5:[address] JUDGE [facility] Blood Venipuncture / Unknown 01/25/2024 5:[address] JUDGE 01/25/2024 5:[address] JUDGE us Tanya Pan CYTOLOGY MANAGER, COMPUTATIONAL LINGUIST CHEMISTRY ORDERABLES Maria Guadalupe l Result [facility] [address] [place] [address] * Lactic Acid (Lactate) (01/24/2024 10:[address] JUDGE) Only the most recent of2 resultswithin the time period is included. LACTIC ACID 1.1 0.7 - 2.0 mmol/L 01/24/2024 10:[address] JUDGE [facility] Blood Venipuncture / Unknown 01/24/2024 10:[address] JUDGE 01/24/2024 10:[address] JUDGE us Dat Ortiz MD CHEMISTRY ORDERABLES Maria Guadalupe l Result [facility] [place] [address] * XR CHEST SINGLE VIEW PORTABLE (01/24/2024 8:[address] JUDGE) Anatomical Region Laterality Modality Chest N/A Computed Radiogr aphy 01/24/2024 8:[address] JUDGE Impressions 01/24/2024 8:[address] JUDGE IMPRESSION: No acute cardiopulmonary abnormality. Narrative 01/24/2024 8:[address] JUDGE EXAM DESCRIPTION: XR CHEST SINGLE VIEW PORTABLE REASON FOR STUDY: c/o fever, headache, and low O2 today. Pt hs hx of MR and dementia making pt poor historian and caregiver unable to provide more info. TECHNIQUE: 1 radiographic view(s) of the chest. COMPARISON: 01/22/2017 FINDINGS: LUNGS: No focal opacity, pleural effusion, or pneumothorax. Poor inspiratory result with bibasilar discoid atelectasis. HEART/MEDIASTINUM: Cardiac silhouette normal in size. Mediastinal and hilar contours appear normal. LINES/TUBES: None. BONES: No acute osseous abnormality. THIS IS AN ELECTRONICALLY VERIFIED FINAL REPORT 01/24/2024 8:54 PM - Electronically signed by Nolberto Baker M.D. KT: [id number] Report ID: [id number] Reading Location: [id number] Procedure Note Nolberto Baker MD - 01/24/2024 EXAM DESCRIPTION: XR CHEST SINGLE VIEW PORTABLE REASON FOR STUDY: c/o fever, headache, and low O2 today. Pt hs hx of MR and dementia making pt poor historian and caregiver unable to provide more info. TECHNIQUE: 1 radiographic view(s) of the chest. COMPARISON: 01/22/2017 FINDINGS: LUNGS: No focal opacity, pleural effusion, or pneumothorax. Poor inspiratory result with bibasilar discoid atelectasis. HEART/MEDIASTINUM: Cardiac silhouette normal in size. Mediastinal and hilar contours appear normal. LINES/TUBES: None. BONES: No acute osseous abnormality. THIS IS AN ELECTRONICALLY VERIFIED FINAL REPORT 01/24/2024 8:54 PM - Electronically signed by Nolberto Baker M.D. KT: [id number] Report ID: [id number] Reading Location: [place] [address] IMPRESSION: No acute cardiopulmonary abnormality. Dat Ortiz MD IMG DIAGNOSTIC ORDERABLES Final Result * Gold Top Tube (01/24/2024 7:[address] JUDGE) Blood No Phlebotomy Charged / Unknown 01/24/2024 7:[address] JUDGE 01/24/2024 7:[address] JUDGE Result [facility] Dat Ortiz MD CHEMISTRY ORDERABLES Maria Guadalupe l Result [facility] [place] [address] * Blue Top Tube (01/24/2024 7:[address] JUDGE) Blood No Phlebotomy Charged / Unknown 01/24/2024 7:[address] JUDGE 01/24/2024 7:[address] JUDGE Result [facility] Dat Ortiz MD HEMATOLOGY ORDERABLES Fin al Result [facility] [address] [place] [address] * Blood Culture #2 (01/24/2024 7:[address] JUDGE) Only the most recent of2 resultswithin the time period is included. CULTURE RESULTS NO GROWTH WITHIN 5 DAYS, FINAL RESULT 01/29/2024 8:[address] JUDGE [facility] Culture BLOOD SPECIMEN / Unknown Venipuncture / Unknown 01/24/2024 7:[address] JUDGE 01/24/2024 7:[address] JUDGE Dat Ortiz MD MICROBIOLOGY - GENERAL OR DERABLES Final Result [facility] [address] [place] [address], * Critical Care (01/24/2024 7:[address] JUDGE) Narrative Dat Ortiz MD - 01/24/2024 7:[address] JUDGE Dat Ortiz MD 01/25/2024 3:06 AM Critical Care Performed by: Dat Ortiz MD Authorized by: Dat Ortiz MD Critical care provider statement: Critical care time (minutes): 45 Critical care time was exclusive of: Separately billable procedures and treating other patients Critical care was necessary to treat or prevent imminent or life-threatening deterioration of the following conditions: Sepsis Critical care was time spent personally by me on the following activities: Development of treatment plan with patient or surrogate, evaluation of patient's response to treatment, examination of patient, obtaining history from patient or surrogate, ordering and performing treatments and interventions, ordering and review of laboratory studies, ordering and review of radiographic studies, pulse oximetry, re-evaluation of patient's condition and review of old charts I assumed direction of critical care for this patient from another provider in my specialty: no Care discussed with: admitting provider us Dat Ortiz MD PROCEDURE/MINOR SURGICAL ORDERABLES Final Result * EKG 12 LEAD (01/24/2024 7:[address] JUDGE) Ventricular Rate 95 BPM EXTERNAL EKG Atrial Rate 95 BPM EXTERNAL EKG P-R Interval 162 ms EXTERNAL EKG QRS Duration 76 ms EXTERNAL EKG Q-T Duration 346 ms EXTERNAL EKG QTC CALCULATION 434 ms EXTERNAL EKG P Superior 14 degrees EXTERNAL EKG R Superior 16 degrees EXTERNAL EKG T Superior -7 degrees EXTERNAL EKG 01/24/2024 7:[address] JUDGE Impressions EXTERNAL EKG - 01/28/2024 2:[address] JUDGE Normal sinus rhythm Normal ECG When compared with ECG of 01-FEB-2016 14:48, no significant change Confirmed by Aravind Moise ([id number]) on 01/28/2024 2:45:34 PM Narrative Procedure Note Aravind Moise MD - 01/28/2024 IMPRESSION: Normal sinus rhythm Normal ECG When compared with ECG of 01-FEB-2016 14:48, no significant change Confirmed by Aravind Moise ([id number]) on 01/28/2024 2:45:34 PM Dat Ortiz MD IMG ECG ORDERABLES Final Result Performing Organization Address City/[facility]/ZIP Co de Phone Number EXTERNAL EKG * (ABNORMAL) GROUP A STREP BY PCR (01/24/2024 7:[address] JUDGE) [facility] GROUP A STREP BY PCR DETECTED( A) NOT DETECTED 01/24/2024 8:[address] JUDGE [facility] Swab SPECIMEN FROM THROAT / Unknown Non-Phlebotomy Collection / Unknown 01/24/2024 7:[address] JUDGE 01/24/2024 7:[address] JUDGE Dat Ortiz MD MICROBIOLOGY - GENERAL OR DERABLES Final Result Performing Organization Address City/[facility] Co de Phone Number [facility] [place] [address] * RSV,SARS-COV-2,INFLUENZA A&B BY PCR (01/24/2024 7:[address] JUDGE) [facility] FLU A Negative Negative, Error 01/24/2024 8:[address] JUDGE [facility] FLU B Negative Negative 01/24/2024 8:[address] JUDGE [facility] RESP SYNC VIRUS Negative Negative 8:[address] JUDGE [facility] SARSCOV2 NOT DETECTED (Reference Range for this test is Not Detected) 01/24/2024 8:[address] JUDGE [facility] Comment:This test was perfor med by a Reverse Speech Pathologist Assistant PCR Method. Swab NASOPHARYNGEAL WASHINGS / Unknown Non-Phlebotomy Collection / Unknown 01/24/2024 7:[address] JUDGE 01/24/2024 7:[address] JUDGE Narrative [facility] - 01/24/2024 8:[address] JUDGE This test has not been FDA cleared or approved; the test has been authorized by FDA under an Emergency Use Authorization (EUA) for use by laboratories certified under the CLIA that meet the requirements to perform moderate, high or waived complexity tests. Authorized Fact Sheets about this test for providers and patients are available at: https://www.fda.gov/medical-devices/sqijuufza-gpvehnrflb-nkrvgwm-devices/emergen -us e-authorizations Dat Ortiz MD MICROBIOLOGY - GENERAL OR DERABLES Final Result Performing Organization Address City/[facility]/ZIP Co de Phone Number [facility] [place] [address] * EKG SCAN (01/24/2024 12:[address] JUDGE) 01/24/2024 Provider Scan IMG ECG ORDERABLES Final Result Performing Organization Address City/[facility] Co de Phone Number RESULTING AGENCY * ADULT TRANS THORACIC ECHO 2D COMPLETE (03/15/2016 8:[address] JUDGE) AV Peak Grad mmHg 3.57 mmHg RESULTING AGENCY LV end kishore diam cm 3.57 cm RESULTING AGENCY LV end sys diam cm 2.23 cm RESULTING AGENCY Aortic Root Diam cm 3.2 cm RESULTING AGENCY LA vol index ml/m2 15 ml/m2 RESULTING AGENCY RV Jaime Dimension cm 1.34 cm RESULTING AGENCY LVOT Peak Alfonso m/sec 0.863 m/sec RESULTING AGENCY AV Peak Alfonso m/sec 0.945 m/sec RESULTING AGENCY LV EF(estimated)% 57 % RESULTING AGENCY MVA by PHT cm2 4 cm2 RESUL TING AGENCY E/A Ratio 1.62 RESULTING AGENCY E/E' 13.3 RESULTING AGENCY AV Area (VTI) cm2 1.77 cm2 RESULTING AGENCY Anatomical Region Laterality Modality CARDIO N/A Ultrasound Narrative 03/15/2016 8:[address] JUDGE Transthoracic Echocardiography Report (TTE) Patient name Dillan Luque 1970 Patient ID (I) [id number] Indications: Chest pain. Study Date03/15/2016 Technical quality: Poor visualization Limitation Reason: Patient unable to roll to left side Type of Study: TTE procedure: Complete. Priority:STATHR: 65 bpmBP: 100/60 mmHg Conclusions Summary Technically difficult study with very poor visualization and endomyocardial definition. Normal left ventricular size, thickness and systolic function, estimated ejection fraction, 68 %. The mitral valve leaflets appear normal without stenosis or prolapse. Aortic valve appears tri-leaflet and without significant stenosis or regurgitation. Normal tricuspid valve structure with trace tricuspid regurgitation. The left atrium is mildly dilated. No evidence of pericardial effusion. Findings Mitral Valve The mitral valve leaflets appear normal without stenosis or prolapse. Aortic Valve Aortic valve appears tri-leaflet and without significant stenosis or regurgitation. Tricuspid Valve Normal tricuspid valve structure with trace tricuspid regurgitation. Pulmonic Valve The pulmonic valve is normal. Left Atrium The left atrium is mildly dilated. Left Ventricle Normal left ventricular size, thickness and systolic function, estimated ejection fraction, 68 %. Right Atrium The right atrium is normal. Right Ventricle Normal Right heart size and right ventricular systolic function. Pericardial Effusion No evidence of pericardial effusion. Miscellaneous IVC appears normal in size with normal respiratory variation. Valves Mitral Valve Area (PHT): 4 cm^2 Peak E-Wave: 0.92 m/s Deceleration Time: 197 msec Peak A-Wave: 0.57 m/s Peak Gradient: 3.43 mmHg P1/2t: 55 msec Tissue Doppler E' Velocity: 0.07 m/s E/E':13.3 E/A Ratio: 1.62 E/Lat E': 13.3 E/Med E':11.8 Aortic Valve Area (continuity): 1.77 cm^2 Peak Velocity: 0.94 m/s Peak Gradient: 3.57 mmHg Cusp Separation: 2.2 cm Tricuspid Valve Peak E-Wave: 0.56 m/s Peak Gradient: 1.29 mmHg Pulmonic Valve Peak Velocity: 0.65 m/s Peak Gradient: 1.7 mmHg LVOT Peak Velocity: 0.86 m/s Peak Gradient: 3 mmHg LVOT Diameter: 2 cm Structures Left Ventricle Diastolic Dimension: 3.57 cm Systolic Dimension: 2.23 cm Septum Diastolic: 1.15 cm Septum Systolic: 1.42 cm PW Diastolic: 0.77 cm PW Systolic: 1.5 cm Diastolic Length: 28.8 cm Systolic Length: 15.8 cm EF Estimated: 57% FS: 37.54 % LV EDV:165 ml LV Length: 3.97 cm LV EDV Index: 88 m^2 LVOT Diameter: 2 cm LV ESV:65.2 ml LV ESV Index: 35 m^2 Right Ventricle Diastolic Dimension: 1.34 cm Left Atrium LA Dimension: 4 cm LA Area: 13.7 cm^2 LA/Aorta: 1.25 LA Volume: 28.1 ml LA Systolic Pressure: 18.63 mmHg LA Index: 15ml/m^2 Great Vessels Aorta Aortic Root: 3.2 cm LVOT Diameter: 2 cm Contractility Score LV regional wall motion: (0-Not visualized 1-Normal 1'-Hyperkinesis 2-Hypokinesis 3-Akinesis 4-Dyskinesis 5-Aneurysm) Demographics Age 45 Gender Male Race Height 59.84 in. Weight 205.01 lbs. BMI (BSA) 40.25 kg/m^2 (1.88 m^2) Classroom Coordinator Gonzalez Dickerson Interpreting Christian Martinez MD, Referring Christian Tiwari Physician [facility] Physician Christian Tiwari Procedure Note Michelle Gonzales MD - 03/15/2016 Transthoracic Echocardiography Report (TTE) Patient name Dillan Szymanski Rebel 1970 Patient ID (UPI) [id number] Indications: Chest pain. Study Date03/15/2016 Technical quality: Poor visualization Limitation Reason: Patient unable to roll to left side Type of Study: TTE procedure: Complete. Priority:STATHR: 65 bpmBP: 100/60 mmHg Conclusions Summary Technically difficult study with very poor visualization and endomyocardial definition. Normal left ventricular size, thickness and systolic function, estimated ejection fraction, 68 %. The mitral valve leaflets appear normal without stenosis or prolapse. Aortic valve appears tri-leaflet and without significant stenosis or regurgitation. Normal tricuspid valve structure with trace tricuspid regurgitation. The left atrium is mildly dilated. No evidence of pericardial effusion. Findings Mitral Valve The mitral valve leaflets appear normal without stenosis or prolapse. Aortic Valve Aortic valve appears tri-leaflet and without significant stenosis or regurgitation. Tricuspid Valve Normal tricuspid valve structure with trace tricuspid regurgitation. Pulmonic Valve The pulmonic valve is normal. Left Atrium The left atrium is mildly dilated. Left Ventricle Normal left ventricular size, thickness and systolic function, estimated ejection fraction, 68 %. Right Atrium The right atrium is normal. Right Ventricle Normal Right heart size and right ventricular systolic function. Pericardial Effusion No evidence of pericardial effusion. Miscellaneous IVC appears normal in size with normal respiratory variation. Valves Mitral Valve Area (PHT): 4 cm^2 Peak E-Wave: 0.92 m/s Deceleration Time: 197 msec Peak A-Wave: 0.57 m/s Peak Gradient: 3.43 mmHg P1/2t: 55 msec Tissue Doppler E' Velocity: 0.07 m/s E/E':13.3 E/A Ratio: 1.62 E/Lat E': 13.3 E/Med E':11.8 Aortic Valve Area (continuity): 1.77 cm^2 Peak Velocity: 0.94 m/s Peak Gradient: 3.57 mmHg Cusp Separation: 2.2 cm Tricuspid Valve Peak E-Wave: 0.56 m/s Peak Gradient: 1.29 mmHg Pulmonic Valve Peak Velocity: 0.65 m/s Peak Gradient: 1.7 mmHg LVOT Peak Velocity: 0.86 m/s Peak Gradient: 3 mmHg LVOT Diameter: 2 cm Structures Left Ventricle Diastolic Dimension: 3.57 cm Systolic Dimension: 2.23 cm Septum Diastolic: 1.15 cm Septum Systolic: 1.42 cm PW Diastolic: 0.77 cm PW Systolic: 1.5 cm Diastolic Length: 28.8 cm Systolic Length: 15.8 cm EF Estimated: 57% FS: 37.54 % LV EDV:165 ml LV Length: 3.97 cm LV EDV Index: 88 m^2 LVOT Diameter: 2 cm LV ESV:65.2 ml LV ESV Index: 35 m^2 Right Ventricle Diastolic Dimension: 1.34 cm Left Atrium LA Dimension: 4 cm LA Area: 13.7 cm^2 LA/Aorta: 1.25 LA Volume: 28.1 ml LA Systolic Pressure: 18.63 mmHg LA Index: 15ml/m^2 Great Vessels Aorta Aortic Root: 3.2 cm LVOT Diameter: 2 cm Contractility Score LV regional wall motion: (0-Not visualized 1-Normal 1'-Hyperkinesis 2-Hypokinesis 3-Akinesis 4-Dyskinesis 5-Aneurysm) Demographics Age 45 Gender Male Race Height 59.84 in. Weight 205.01 lbs. BMI (BSA) 40.25 kg/m^2 (1.88 m^2) Classroom Coordinator Gonzalez Dickerson Interpreting Christian Martinez MD, Referring Christian Tiwari Physician [facility] Physician Christian Tiwari Michelle Gonzales MD IMG ECHO ORDERABLES Final Result from Last 3 Months or Most Recently Relevant to Health Maintenance [place] [address] MEDICARE MEDICAID [place] Advance Directives Documents on File Type Date Recorded Patient Vba Developer Expl anation Guardian of Person 01/26/2024 6:07 AM [employer], 11/03/1997 POLST/POST/[place] DNR 01/25/2024 12:[address], 01/25/2024 * Full Code (Latest Code Status on File) Date Activated Date Inactivated Comments 01/25/2024 2:01 AM CPR-Full Monse tment: FULL ARREST: Attempt Resuscitation/CPR wit intubation and mechanical ventilation. PRE-ARREST: Use entire range of life support measures to stabilize the patient. * Full Code Date Activated Date Inactivated Comments 01/22/2017 10:37 AM 01/26/2017 11:02 PM CPR-Full Treatment: FULL ARREST: Attempt Resuscitation/CPR wit intubation and mechanical ventilation. PRE-ARREST: Use entire range of life support measures to stabilize the patient. Care Teams Painter Plate Relationship Specialty Start Date End Date Leigha Vega MD [address] [place] [address] [place] [address] PCP - General Family Medicine 11/09/20 Robbie Cruz MD [address] [place] [id number] Consulting Physician Neurology 09/05/22 Ángela Peraza APRN, COMPUTATIONAL LINGUIST [address] [place] [address] Nurse Practitioner Advanced Practice Nurse 11/12/22
--- OUTSIDE RECORDS SUMMARY | 2024-03-22 18:21 | XMS_ITS | Encounter Summary ---
Author Organization [facility] Address [address] [place] [address] Phone Care Team Providers Care General Contractor Name Role Phone Myke Aguilar MD Primary Care Provider [phone] Robbie Cruz MD Unavailable [phone] Ángela Peraza APRN, [employer] Unavailable Encounter Details Date Type Department Care Team (Late st Contact Info) Description 03/29/2022 Nursing Facility [facility] [address] [place] [address] Velasquez Moreau MD [address] [place] [address] Social History Tobacco Use Types Packs/Day Years [...] on file documented as of this encounter H&P Notes * Velasquez Moreau MD - 03/29/2022 11:59 PM CST [facility] History and Physical Chief Complaint: pneumonia HPI: Geo Nessa Dillan is a 52 y.o. male who has transferred to [facility] from [facility] for post-acute care and rehabilitation before [facility] jail. The patient has intellectual disability due to Down syndrome/Trisomy 21 and has a PMHX of HTN, gout, schizophrenia, depression, dementia, asthma, hypothyroidism, and Vitamin D Deficiency. He was admitted to the hospital from 03/20 to 03/28 for pneumonia and was treated with steroid therapy and antibiotics. He required supplemental O2 temporarily but has been weaned back to room air. The patient was sitting in a wheelchair at the time of this assessment but is ambulatory according to staff. He did not have any complaints but was a poor historian. History obtained from: medical records. Patient was a poor historian and participated in the assessment but was unable to provide medical history Review of Prior External Notes: [facility] ED and inpatient records Allergies: is allergic to morphine. Past Medical History: He has a past medical history of Dementia ([facility]), Depression, Gastritis, Gout,Mild intellectual disabilities, Peptic ulcer, Schizophrenia ([facility]), Sleep apnea, and Trisomy 21, Down syndrome. Surgical History: has a past surgical history that includes Colonoscopy (01/29/12); Upper Gastrointestinal Endoscopy (627383); Foot Surgery; Tympanostomy Tube Placement; Upper Gastrointestinal Endoscopy (Left, 09/03/2016); and Colonoscopy (Left, 10/08/2017). Social History: reports that he has never smoked. He has never used smokeless tobacco. He reports that he does not drink alcohol and does not use drugs. Physical Exam: Vital Signs: All vitals were reviewed in the facility EMR and are stable. Exam: General: Well developed, well nourished, in no [...] normal; no masses, no organomegaly, central obesity : external genitalia normal in appearance Extremities: no deformities, joint mobility appears intact, no clubbing, ingrown toenails on bilateral great toes Neuro: Non-focal, CN intact, sensory and motor intact Psychological: alert and oriented X1, appropriate mood and affect, unable to assess judgement and memory Data Review: Lab Results: Lab Results Component Value Date WBC 6.46 01/25/2017 HEMOGLOBIN 14.6 01/25/2017 HEMATOCRIT 43.1 01/25/2017 PLATELETCNT 261 01/25/2017 MCV 100.7 (H) 01/25/2017 Lab Results Component Value Date SODIUM 139 01/25/2017 POTASSIUM 4.3 01/25/2017 CHLORIDE 102 01/25/2017 CO2VEN 29 01/25/2017 GLUCOSE 88 01/25/2017 ANIONGAP 12.3 01/25/2017 BUN 17 01/25/2017 CREATININE 0.91 01/25/2017 CALCIUM 8.6 (L) 01/25/2017 Lab Results Component Value Date INR 0.9 02/01/2016 PTP 10.0 02/01/2016 On 03/27: WBC 15.4, CO2 33, albumin 3.4, ALT 63. Otherwise unremarkable. Imaging: Recent imaging reviewed and there were no new findings. Labs Ordered: No new labs were ordered for this visit. Medication Changes: None Assessment/Plan: 1. Pneumonia. The patient The [...] at the SNF. Continue DuoNebsand acapella clearance. 2. MAGED. Resolved. Kidney functioning returned to [...] is limited by his intellectualdisability. VTE Prophylaxis: Mobilization Disposition and escalation or reduction of care: The patient is receive post- acute care and complete PT and OT at the SNF to improve their strength, balance, and mobility back to baseline with the goal of discharging to [facility]. Barriers to Rehabilitation: intellectual disability/Down syndrome, reliant on caregivers, lives in jail Advance Care Planning: the patient has severe intellectual disability and we were not able to discuss CPR, Intubation, treatment goals, and Quality of life/Intensity of care. He was marked as a Full Code during hospitalization. I, Chetan Calvo, acting as a scribe, am personally taking down the notes in the presence of Dr. Velasquez Moreau M.D. Take no action on this note until reviewed and authenticated by the physician. By: CHETAN CALVO, 03/29/2022 Primary Care Physician: MYKE AGUILAR MD . I evaluated and examined the patient in the presence of scribe Chetan Calvo and discussed the physical findings and clinical assessment with her and reviewed the medical records and notes above and agree with the content and details of the note. Velasquez Moreau M.D. 2:00 PM MOLDER HAND MOLDER HAND MOLDER HAND documented in this encounter Plan of Treatment Upcoming Encounters Date Type Department Care Team (Late st Contact Info) Description 04/08/2024 10:30 AM TILE MOLDER HAND Office Visit [facility] - Primary Care - [address] [place] [phone] Aguila Graff PAC [address] [place] [address] 09/07/2024 10:00 AM CDT Office Visit [facility] - Neurology [facility] [address] [place] [phone] Robbie Cruz MD [address] [place] [phone] 11/10/2024 11:00 AM CDT Office Visit [facility] [address] [place] [phone] Ángela Peraza APRN, [employer] [address] [place] [address] documented as of this encounter Visit Diagnoses Not on filedocumented in this encounter Additional Health Concerns Infection Onset Date Last Indicated Resolved Time COVID - 19 01/24/2024 01/24/2024 01/24/2024 8:13 PM TILE MOLDER HAND documented as of this encounter Care Teams General Contractor Relationship Specialty Start Date End Date Myke Aguilar MD [address] [place] [address] [facility] [place] [place] [address] PCP - General Family Medicine 11/09/20 Robbie Cruz MD [address] [place] [address] Consulting Physician Neurology 09/05/22 Ángela Peraza APRN, [employer] [address] [place] [address] Nurse Practitioner Advanced Practice Nurse 11/12/22 documented as of this encounter
--- OUTSIDE RECORDS SUMMARY | 2024-03-22 18:21 | XMS_ITS | Referral Summary ---
Author Organization [facility] [employer] Address [address] [place] [address] Care Team Providers Care Marine Machinist Name Role Phone Leigha Vega MD Primary Care Provider [phone] Source Comments [facility],non-owned Affiliates and Associated Physician Practices is amultiple site organization consisting of ambulatory clinics and hospital sitesin [place], [place], [place] and [place]. This disclosure is being madepursuant to the Care Everywhere program and may not contain all information available regarding this patient. Last updated 17.[facility] [employer] Allergies Active Allergy Reactions Criticality Noted Date Comments Morphine Anaphylaxis High 03/10/2017 Medications * Be aware that medications may not be up to date on this document. Alwaysverify current medications with the patient. Medication Sig Dispensed Refills Start Date End Date Status allopurinol (ZYLOPRIM) 300 MG tablet Take 1 (one) tablet by mouth once daily 02/24/2017 Active cetirizine (ZYRTEC) 10 MG tablet Take 1 (one) tablet by mouth once daily 02/24/2017 Active DiphenhydrAMINE HCl, Sleep, (ZZZQUIL) 25 MG Take by mouth. 03/10/2017 Activ e acetaminophen (TYLENOL) 325 MG tablet Take 2 (two) tablets by mouth q4h PRN (Pain) 03/10/2017 Active Aspirin (ASPIRIN ADULT LOW STRENGTH) 81 MG Take 1 (one) tablet by mouth once daily 02/24/2017 Active polyethylene glycol 3350 (MIRALAX) packet Take 17 (seventeen) g by mouth once daily 02/13/2017 Active levothyroxine (SYNTHROID) 137 MCG tablet Take 1 (one) tablet by mouth once daily 02/01/2017 Active simvastatin (ZOCOR) 40 MG tablet Take 1 (one) tablet by mouth once daily 01/29/2017 Active divalproex ER 24hr (DEPAKOTE ER) 500 MG tablet Take 1 (one) tablet by mouth once daily 02/24/2017 Active metoprolol tartrate (LOPRESSOR) 25 MG tablet Take 1 (one) tablet by mouth once daily 02/24/2017 Active folic acid (FOLVITE) 1 MG tablet Take 1 (one) tablet by mouth once daily 02/24/2017 Active alum & mag hydroxide-simeth (MAALOX ADVANCED) 200-200-20 MG/5ML suspension Take 30 mL by mouth as needed Active Multiple Vitamins-Minerals (THEREMS-M) TABS Take 1 (one) tablet by mouth once daily 08/10/2017 Active omeprazole (PRILOSEC) 40 MG capsule Take 20 capsules by mouth 2 times daily,before breakfast and supper 09/29/2017 Active ARTIFICIAL TEARS 1.4 % ophthalmic solution Instill 1 (one) drop into both eyes 3 times daily 07/28/2017 Active terbinafine (LAMISIL) 1 % cream Apply to affected area at bedtime 09/08/2017 Active B Complex Vitamins (B COMPLEX PO) Take 1 capsule by mouth once daily Active albuterol HFA (PROAIR HFA) 108 (90 BASE) MCG/ACT inhaler Inhale 2 puffs by mouth every 4 hours as needed Active Lkgrg-Reapu-Tfmflf x-Pramoxine (TRIPLE ANTIBIOTIC PLUS) 1 % Active montelukast (SINGULAIR) 10 MG tablet Take 1 tablet by mouth at bedtime 30 tablet 11 08/17/2019 Active terbinafine (LAMISIL) 250 MG tablet 02/28/2020 Active selenium sulfide (SELSUN) 2.5 % lotion 12/18/2019 Active fluticasone propionate (FLONASE) 50 MCG/ACT nasal spray INSTILL 2 SPRAYS INTO EACH NOSTRIL ONCE DAILY. 8AM 16 g 5 09/13/2020 Active Calcium Carb-Cholecalcifer ol (Oyster Shell Calcium w/D) 500-5 MG-MCG TABS Take 1 tablet by mouth 3 times daily 10/28/2022 Active gabapentin (Neurontin) 100 MG capsule Take 1 (one) capsule by mouth 3 times daily 10/28/2022 Active losartan (Cozaar) 25 MG tablet Take 1 (one) tablet by mouth once daily 02/27/2022 Active sucralfate (Carafate) 1 GM tablet Take 1 (one) tablet by mouth 2 times daily 10/28/2022 Active bisacodyl EC 5 MG tablet Take 1 (one) tablet by mouth as needed for Constipation Active loperamide (Imodium) 2 MG capsule Take 1 (one) capsule by mouth 2 times daily as needed for Diarrhea Active Dextromethorphan-g uaiFENesin (Robafen DM) 20-200 MG/20ML LIQD Take 10 mL by mouth as needed Active acetaminophen CR (Tylenol Arthritis Pain) 650 MG tablet Take 1 (one) tablet by mouth every 6 hours as needed for Pain 09/26/2023 Active carboxymethylcellu lose sodium 0.5 % ophthalmic solution Instill 1 (one) drop into both eyes 3 times daily 10/18/2023 Active divalproex ER 24hr (Depakote ER) 250 MG tablet Take 1 (one) tablet by mouth once daily 09/26/2023 Active donepezil (Aricept) 10 MG tablet Take 1 (one) tablet by mouth at bedtime 09/26/2023 Active famotidine (Pepcid) 20 MG tablet Take 1 (one) tablet by mouth once daily 09/26/2023 Active OLANZapine (ZyPREXA) 7.5 MG tablet Take 1 (one) tablet by mouth at bedtime 09/26/2023 Active Emollient (CeraVe PM) LOTN 1 Dose by Apply externally route as needed Active diphenhydrAMINE (Banophen) 25 MG capsule Take 1 (one) capsule by mouth every 4 hours as needed for Itching Active Active Problems Problem Noted Date Diagnosed Date Sensorineural hearing loss (SNHL) of both ears 0 05/05/2018 Dysfunction of right eustachian tube 12/16/2017 Bilateral hearing loss 12/16/2017 UARS (upper airway resistance syndrome) 11/19/19 18 Allergic rhinitis 11/18/2017 Sleep related leg cramps 10/06/2017 Sleep related gastroesophageal reflux disease Sleep choking syndrome 10/06/2017 Hypnagogic hallucinations 10/06/2017 Confusional arousals 10/06/2017 Conductive hearing loss 10/03/2017 Overview (10/03/2017): Overview: External ear Mixed hyperlipidemia 10/03/2017 Spondylosis of cervical [place] on without myelopathy or radiculopathy 10/03/2017 Severe intellectual disabilities 01/24/2017 CAP (community acquired pneumonia) 01/22/2017 Gout 01/22/2017 Schizophrenia 01/22/2017 Trisomy 21, Down syndrome 01/22/2017 Resolved Problems Problem Noted Date Diagnosed Date Resolved Date Cerumen impaction 10/03/2017 10/17/2017 Overview (10/03/2017): Overview: Both ears Immunizations Name Administration Dates Next Due INFLUENZA VACCINE, TRIV. (AF LURIA, FLUZONE TRIVALENT; 6MO+) (IIV3) 11/24/2012 BCG [facility], HISTORIC VACCINE 04/01/2022 COVID PFIZER BIVALENT 12Y+ 30mcg/0.3ML 12/06/2021 Covid Pfizer primary monoval ent 12+ yr 0.3mL Purple cap 11/17/2020 FLU VACCINE QUAD IIV4 SPLIT 0.25 ML IM 11/23/2018,10/21/2016,12/14/2015,2015 FLU VACCINE TRI IIV3 SPLIT I M (FLUVIRIN) 11/11/2014,11/11/2013 HEP B VACCINE 12/06/1997,11/07/1997 HIB VACCINE 11/07/1997 Hep B, Adjuvanted 04/17/1998 INFLUENZA VACCINE 10/11/2017 INFLUENZA VACCINE, QUADR. (F LUZONE; FLULAVAL; FLUARIX; AFLURIA QUADRIVALENT; 6MO+), 0.5 ML (IIV4) 11/06/2022,12/06/2021,11/17/2020,2019,11/07/2017 MODERNA SARS-COV-2 COVID-19 VACCINE 0.25ML 11/17/2020,04/16/2020,03/26/2020 PNEUMOCOCCAL PCV VACCINE 06/16/2008,03/16/2003,1 PNEUMOCOCCAL PPSV23 06/09/2018,02/11/2008 TD (AGE 7-ADULT) 03/13/2008 TD, HISTORIC VACCINE 11/07/1997 TDAP (7yrs+) 10/20/2019,07/13/2007 Social History Tobacco Use Types Packs/Day Years [...] Mass Index 31.86 10/02/2021 3:39 PM CDT Plan of Treatment Not on file Administered Medications Care Teams Marine Machinist Relationship Specialty Start Date End Date Leigha Vega MD [address] [place] [address] [place] [address] PCP - General Family Medicine 11/05/22
--- OUTSIDE RECORDS SUMMARY | 2024-03-22 18:21 | XMS_ITS | Clinical Summary ---
Author Organization [facility] [employer] Address [address] [place] [address] Care Team Providers Care Superintendent Operations Division Name Role Phone Leigha Vega MD Primary Care Provider [phone] Source Comments [facility],non-owned Affiliates and Associated Physician Practices is amultiple site organization consisting of ambulatory clinics and hospital sitesin [place], [place], [place] and [place]. This disclosure is being madepursuant to the Care Everywhere program and may not contain all information available regarding this patient. Last updated 17.[facility] [employer] Allergies Active Allergy Reactions Criticality Noted Date [...] mouth every 4 hours as needed Active Rbtcs-Ubqvs-Aqquvs x-Pramoxine (TRIPLE ANTIBIOTIC PLUS) 1 % Active [...] LURIA, FLUZONE TRIVALENT; 6MO+) (IIV3) 11/24/2012 [facility], HISTORIC VACCINE 04/01/2022 COVID PFIZER BIVALENT 12Y+ [...] 10/02/2021 3:39 PM CDT Plan of Treatment Health Maintenance Due Date Last Done Comments COLOGUARD (AGES 45-75) - COLON CA SCREENING 1969 COLON MONITORING 1969 COLONOSCOPY - COLON CA SCREENING 1969 CT COLONOGRAPHY - COLON CA SCREENING 1969 Colorectal Cancer Screening 1969 FIT - COLON CA SCREENING 1969 FLEX SIG - COLON CA SCREENING 1969 MEDICARE AWV 12 MONTHS 1969 HIV SCREENING 1984 HEPATITIS C SCREENING 03/14/1987 ZOSTER VACCINE (1 of 2) 2019 PNEUMOCOCCAL VACCINE 50+ (3 of 3 - PCV20 or PCV21) 06/10/2023 06/09/2018, 06/16/2008, 02/11/2008, Additional history exists COVID-19 VACCINE ( season) 2023 01/29/2023, 12/06/2021, 09/21/2021, Additional history exists INFLUENZA VACCINE (#1) 2023 3, 12/06/2021, 11/17/2020, Additional history exists DEPRESSION SCREENING 02/11/2024 DTAP/TDAP/TD VACCINES (5 - Td or Tdap) 10/19/2029 10/20/2019, 03/13/2008, 07/13/2007, Additional history exists HIB VACCINE Aged Out 11/07/1997 No longer eligi ble based on patient's age to complete this topic HEPATITIS B VACCINE Completed 04/17/1998, 12/06/1997, 11/07/1997 PNEUMOCOCCAL VACCINE Aged Out 06/09/2018, 06/16/2008, 02/11/2008, Additional history exists No longer eligible based on patient's age to complete this topic HPV VACCINE Aged Out No longer eligi ble based on patient's age to complete this topic MENINGOCOCCAL (Group B) VACCINE Aged Out No longer eligible based on patient's age to complete this topic MENINGOCOCCAL VACCINE Aged Out No bruce ashely eligible based on patient's age to complete this topic Care Teams Superintendent Operations Division Relationship Specialty Start Date End Date Leigha Vega MD [address] [place] [address] [place]gar[place] [address] PCP - General Family Medicine 11/05/22
[2024-03-22 18:48] VITALS: BP 140/76; PULSE 88; RESP 16; TEMP 38; O2SAT 94
--- NOTE | 2024-03-22 19:10 | ED.URI ---
HPI - URI/Sore Throat General Chief Complaint: Upper Respiratory Infection Stated Complaint: cough/throat/fever Time Seen by Provider: 03/22/24 19:10 Source: patient Mode of arrival: ambulatory Limitations: altered mental status History of Present Illness HPI Narrative: 54-year-old male who resides at a retirement presented with insurance healthcare representative for complaint of a cough for 2 days and started with fever today. They report fever up to 102. They gave Tylenol. Denies shortness of breath, wheezing nausea vomiting diarrhea. The caregiver reports he is always tired. Related Data Home Medications ?Medication ?Instructions ?Recorded ?Confirmed ?Last Taken ?Type allopurinol 300 mg tablet mg 03/22/24 Unknown History aspirin 81 mg tablet,delayed mg 03/22/24 Unknown History release atorvastatin 40 mg tablet mg 03/22/24 Unknown History cetirizine 10 mg tablet mg 03/22/24 Unknown History divalproex 250 mg tablet,extended mg PO 03/22/24 Unknown History release 24 hr donepezil 10 mg tablet mg 03/22/24 Unknown History famotidine 20 mg tablet mg 03/22/24 Unknown History fluticasone propionate 50 intranasal 03/22/24 Unknown History mcg/actuation nasal spray,suspension folic acid 1 mg tablet 03/22/24 Unknown History gabapentin 100 mg capsule mg 03/22/24 Unknown History levothyroxine 137 mcg tablet mcg 03/22/24 Unknown History losartan 25 mg tablet mg 03/22/24 Unknown History metoprolol tartrate 25 mg tablet mg 03/22/24 Unknown History montelukast 10 mg tablet mg 03/22/24 Unknown History olanzapine 7.5 mg tablet mg 03/22/24 Unknown History Allergies Allergy/AdvReac Type Severity Reaction Status Date / Time morphine Allergy Unknown Unverified 02/20/18 10:44 Review of Systems Review of Systems: ROS per caregiver, see HPI All systems reviewed & are unremarkable except as noted in HPI and below PMFSH Comments At time of signature, I have reviewed and agree with nursing past medical, surgical, social and family history unless otherwise noted. Please see nursing chart for further information. There is no relevant family history pertinent to the presenting complaint Exam Narrative: GENERAL: mildly ill-appearing, nontoxic in no acute distress. EYES: EOMI. No redness or drainage. Conjunctivae normal. ENT: Mucous membranes pink and moist. congestion and rhinorrhea. TMs normal bilaterally. Throat normal. Uvula midline. NECK: Normal AROM. Supple. CHEST: No respiratory distress. lungs clear to all wharton. HEART: Regular rate and rhythm. No murmur appreciated. SKIN: Warm, dry, no rash. Capillary refill normal. Normal skin turgor. NEURO: Alert, cooperative Course Course Emergency Course: Patient is aware of diagnosis, understands and agrees to treatment plan. Anticipatory guidance given. Patient agrees to follow-up as directed and is aware of reasons to seek care at the emergency department. Portions of this record may have been created with voice recognition software Level of Care: Express Care Visit Vital Signs Vital signs: Vital Signs Temperature 100.4 F H 03/22/24 18:48 Pulse Rate 88 03/22/24 18:48 Respiratory Rate 16 03/22/24 18:48 Blood Pressure 140/76 03/22/24 18:48 Pulse Oximetry 94 03/22/24 18:48 Oxygen Delivery Room Air 03/22/24 18:48 Temperature 100.4 F H 03/22/24 18:48 Pulse Rate 88 03/22/24 18:48 Respiratory Rate 16 03/22/24 18:48 Blood Pressure 140/76 03/22/24 18:48 Pulse Oximetry 94 03/22/24 18:48 Oxygen Delivery Room Air 03/22/24 18:48 MDM - URI/Sore Throat MDM Narrative Medical decision making narrative: Negative flu, COVID, and strep. Results reviewed with patient and caregiver. Discussed physical exam findings. Advised supportive measures and signs/symptoms to go to the ER. Pt is appropriate for outpt treatment and f/u. RX printed Differential Diagnosis Differential diagnosis: Likely upper respiratory infection, otitis media, sinusitis, viral infection, bronchitis, influenza and pharyngitis Discharge Plan Discharge Clinical Impression: Bronchitis Patient Disposition: Home, Self-Care Condition: Stable Instructions: Antibiotic Form, Acute Bronchitis (ED) Additional Instructions: flu and COVID negative. Rapid strep swab was negative today You will be notified in a few days if the culture comes back positive for strep, and appropriate antibiotics will be called in at that time. if symptoms are due to a viral illness, it is not treated with antibiotics. Viral symptoms can be present for up to 10-14 days. lung infections can be contagious because they are usually caused by infection with a virus or bacteria. It is usually for a few days but you can be contagious for up to one week. Avoid crowds until you do not have a fever and symptoms are improved Take medication as directed Recommendations: Monitor oxygen status closely Otc Flonase spray and Zyrtec for sinus congestion Otc Cough syrup may cause drowsiness; avoid driving or take it at night time. Tylenol every 8 hours as needed for pain/fever Soft foods, cool liquids, warm tea. Chloraseptic spray. Rest and stay hydrated. Follow up with your primary care provider as needed Go to the ER for worsening symptoms or concerns Patient Language: Niuean Prescriptions: New prednisone 20 mg tablet 40 mg PO DAILY 5 Days Qty: 10 0RF albuterol sulfate 90 mcg/actuation HFA aerosol inhaler 2 inh inhalation QID PRN (Reason: shortness of breath or wheezing) Qty: 8.5 0RF doxycycline hyclate 100 mg tablet 100 mg PO BID 7 Days Qty: 14 0RF No Action atorvastatin 40 mg tablet levothyroxine 137 mcg tablet cetirizine 10 mg tablet donepezil 10 mg tablet olanzapine 7.5 mg tablet aspirin 81 mg tablet,delayed release (DR/EC) famotidine 20 mg tablet losartan 25 mg tablet folic acid 1 mg tablet montelukast 10 mg tablet allopurinol 300 mg tablet gabapentin 100 mg capsule fluticasone propionate 50 mcg/actuation spray,suspension INTRANASAL divalproex 250 mg tablet extended release 24 hr PO metoprolol tartrate 25 mg tablet Follow-up/Referrals: PHYSICIAN NOT ON STAFF,NONSTAFF [Primary Care Provider] - Time of Disposition: 19:20
[2024-03-22 19:27] LABS: EDCOVIDSCREEN Negative (Negative); EDINFLUASCREEN Negative (Negative); EDINFLUBSCREEN Negative (Negative); EDSTREPNEGPOS1 Negative (Negative)
== END 2024-03-22 19:39 | disposition home or self-care (01) ==
PROVIDERS: Emergency Provider Nurse Practitioner Family
DX: J40 Bronchitis, not specified as acute or chronic (principal); Z20.822 Contact with and (suspected) exposure to COVID-19; I10 Essential (primary) hypertension; E78.00 Pure hypercholesterolemia, unspecified; K21.9 Gastro-esophageal reflux disease without esophagitis; Q90.9 Down syndrome, unspecified
CPT/HCPCS: 87081; 87426; 87804; 87880; 99203; G0463

== ENCOUNTER 2024-09-15 09:12 | Emergency (ER) | payer MEDICARE, MEDICAID, SELFPAY ==
[2024-09-15 09:26] VITALS: BP 117/58; PULSE 56; RESP 18; TEMP 36.6; O2SAT 98
--- OUTSIDE RECORDS SUMMARY | 2024-09-15 09:34 | XMS_ITS | Encounter Summary ---
Author Organization [facility] Address [address] [place] [address] Phone Care Team Providers Care Costumed Character Entertainer Name Role Phone Leigha eVga MD Primary Care Provider [phone] Robbie Cruz MD Unavailable [phone] Ángela Peraza APRN, PHOTOGRAPHIC PROCESS SCREEN MAKER Unavailable Aguila Graff Primary Care Provider [phone] Encounter Details Date Type Department Care Team (Late st Contact Info) Description 04/18/2022 Nursing Facility [facility] [address] [place] [address] Ezio Dillon, RED [address] [place], [place] [id number] Social History Tobacco Use Types Packs/Day Years [...] of this encounter Progress Notes * Ezio Dillon PAC - 04/18/2022 5:25 PM CST [facility] [employer] [facility] [facility] PROGRESS NOTE Geo Grimaldo is a 52 y.o. male at [facility] for rehabilitation. Geo Grimaldo is a 52 y.o. male who has transferred to [facility] from [facility] for post-acute care and rehabilitation before returning [...] WAS A BABY ??? UPPER GASTROINTESTINAL ENDOSCOPY [id number] ??? UPPER GASTROINTESTINAL ENDOSCOPY Left 09/03/2016 Procedure: [...] do a continue to wean as tolerated. 3: Has been successfullyweaned off of oxygen. Lung [...] Continue dementia treatment with Aricept. [facility] 6. Depression and Schizophrenia. The patient's mood [...] Disposition: 04/19: Planning for [facility] back to [facility] on [facility]. Has been successfully weanedoff the supplemental oxygen for some time now so does not need that. Speech therapy has recommendedpureed diet which she has done well with this and will need to continue after discharge. This note was dictated using M*Modal fluency dictation system and there may be errors in senior safety support manager. Despite proof reading the note, there may be mistakes and I apologize for those. By: RED Menjivar, 04/18/2022 5:26 PM CONTROLLER REPAIRER AND TESTER ROLLER REPAIRER AND TESTER documented in this encounter Plan of Treatment Upcoming Encounters Date Type Department Care Team (Late st Contact Info) Description 10/07/2024 11:00 AM CDT Office Visit [facility] - Primary Care - [place] [address] [place] [address] Aguila Graff, RED [address] [place] [address] 11/10/2024 11:00 AM CDT Office Visit [facility] Medical [facility] - Gastroenterology - [place] [address] [place] [address] Ángela Peraza APRN, PHOTOGRAPHIC PROCESS SCREEN MAKER [address] [place] [address] 09/06/2025 10:00 AM CDT Office Visit [facility] - Neurology - [place] [address] [place] [address] Robbie Cruz MD [address] [place] [address] documented as of this encounter Visit Diagnoses Not on filedocumented in this encounter Additional Health Concerns Infection Onset Date Last Indicated Resolved Time COVID - 19 01/24/2024 01/24/2024 01/24/2024 8:13 PM CONTROLLER REPAIRER AND TESTER documented as of this encounter Care Teams Costumed Character Entertainer Relationship Specialty Start Date End Date Leigha Vega MD [address] [place] [address] [facility] [address] PCP - General Family Medicine 11/09/20 04/07/24 Aguila Graff, PAC [address] [place] [address] PCP - General Physician Wood Machinist Apprentice 04/08/24 Robbie Cruz MD [address] [place] [address] Consulting Physician Neurology 09/05/22 Ángela Peraza APRN, PHOTOGRAPHIC PROCESS SCREEN MAKER [address] [place] [address] Nurse Practitioner Advanced Practice Nurse 11/12/22 documented as of this encounter
--- OUTSIDE RECORDS SUMMARY | 2024-09-15 09:34 | XMS_ITS | Encounter Summary ---
Author Organization [facility] Address [address] [place] [address] Phone Care Team Providers Care Speech Therapy Assistant Name Role Phone Leigha Vega MD Primary Care Provider [phone] Robbie Cruz MD Unavailable [phone] Ángela Peraza APRN, PNEUMATIC RIVETER Unavailable Aguila Graff Primary Care Provider [phone] Encounter Details Date Type Department Care Team (Late st Contact Info) Description 04/11/2022 Nursing Facility [facility] [address] [place] [address] Ezio Dillon, RED [address] [place], [place] [address] Social History Tobacco Use Types Packs/Day Years [...] Progress Notes * Ezio Dillon PAC - 04/11/2022 3:29 PM CST [facility] PROGRESS NOTE Geo Grimaldo is a 52 y.o. male at [facility] for rehabilitation. Geo Grimaldo is a 52 y.o. male who has transferred to [facility] from [facility] for post-acute care and rehabilitation before [...] COLON, HEMORRHOIDS; Surgeon: Audi Almaguer MD; Location: [facility] GI LAB; Service: Gastroenterology ??? FOOT SURGERY X2, MOM STATES PT WAS IN 20'S ??? TYMPANOSTOMY TUBE PLACEMENT PT MOTHER STATES WHEN PT WAS A BABY ??? UPPER GASTROINTESTINAL ENDOSCOPY [id number] ??? UPPER GASTROINTESTINAL ENDOSCOPY Left 09/03/2016 Procedure: EGD ERIC TEST, SMALL BOWEL BIOPSY, DUODENAL BULB LESION BIOPSY, DISTAL, MID, AND PROXIMALESOPHAGEAL BIOPSIES; Surgeon: Audi Almaguer MD; Location: [facility] GI [facility]; Service: Gastroenterology Review of Systems: [...] on it. This note was dictated using [email or web address] fluency dictation system and there may be errors in white sugar boiler. Despite proof reading the note, there may be mistakes and I apologize for those. By: RED Menjivar, 04/11/2022 3:29 PM GAS SHOVEL OPERATOR SHOVEL OPERATOR documented in this encounter Plan of Treatment Upcoming Encounters Date Type Department Care Team (Late st Contact Info) Description 10/07/2024 11:00 AM CDT Office Visit [facility] - Primary Care - [place] [address] [place] [address] Aguila Graff, PAC [address] [place] [address] 11/10/2024 11:00 AM CDT Office Visit [facility] - Gastroenterology - [place] [address] [place] [address] Ángela Peraza APRN, PNEUMATIC RIVETER [address] [place] [address] 09/06/2025 10:00 AM CDT [facility] - Neurology - [place] [address] [place] [address] Robbie Cruz MD [address] [place] [address] documented as of this encounter Visit Diagnoses Not on filedocumented in this encounter Additional Health Concerns Infection Onset Date Last Indicated Resolved Time COVID - 19 01/24/2024 01/24/2024 01/24/2024 8:13 PM GAS SHOVEL OPERATOR documented as of this encounter Care Teams Speech Therapy Assistant Relationship Specialty Start Date End Date Leigha Vega MD [address] [place] [id number] PCP - General Family Medicine 11/09/20 04/07/24 Aguila Graff, PAC [address] [place] [address] PCP - General Physician Meat Processor 04/08/24 Robbie Cruz MD [address] [place] [address] Consulting Physician Neurology 09/05/22 Ángela Peraza APRN, PNEUMATIC RIVETER [address] [place], [place] [id number] Nurse Practitioner Advanced Practice Nurse 11/12/22 documented as of this encounter
--- OUTSIDE RECORDS SUMMARY | 2024-09-15 09:34 | XMS_ITS | Clinical Summary ---
Author Organization [facility] Address [address] [place] [address] Care Team Providers Care Watch And Clock Repair Clerk Name Role Phone Michaela Sweet MD Primary [...] on file Legal Sex Male 2:32 AM TRANSITIONAL STUDIES INSTRUCTOR Gender Identity Not on file Sexual Orientation [...] 88.9 kg (196 lb) 04/06/2022 6:12 PM TRANSITIONAL STUDIES INSTRUCTOR Height 167.6 cm (5' 6) 03/20/2022 9:17 PM TRANSITIONAL STUDIES INSTRUCTOR Body Mass Index 31.64 03/20/2022 9:17 PM TRANSITIONAL STUDIES INSTRUCTOR Plan of Treatment Health Maintenance Due Date Last Done Comments Colon Cancer Screening-Colonoscopy 1969 Depression Screening 1969 Hepatitis C Screening 1969 Prostate Cancer Screening-PSA 1969 Regular Well Visit/Exam 18-64 1987 Zoster Vaccine (1 of 2) 2019 Covid-19 Vaccine ( season) 2023 11/17/2020, 11/17/2020, 04/16/2020, Additional history exists Influenza Vaccine (#1) 2024 3, 12/06/2021, 11/17/2020, Additional history exists DTaP/Tdap/Td Vaccine (4 - Td or Tdap) 10/19/2029 10/20/2019, 03/13/2008, 07/13/2007, Additional history exists Hepatitis B Screening Completed 04/17/1998 , 12/06/1997, 11/07/1997 Pneumococcal vaccine <65 Aged Out 019, 06/16/2008, 06/16/2008, Additional history exists No longer eligible based on patient's age to complete this topic Insurance [facility] [employer]CA MEDICARE [facility] Address: [facility] [address] [place] [address] [facility] [employer]PA MEDICARE [facility] Address: [facility] [address] [place] [address] [employer] Advance Directives For more information, please contact: [phone] * Full Code (Latest Code Status on File) Date Activated Date Inactivated Comments 03/20/2022 8:23 PM 03/28/2022 5:42 PM Healthcare Agents on File Name Relationship Healthcare Agent [facility] Communication Nisha Miles [facility] Care Agent Care Teams Watch And Clock Repair Clerk Relationship Specialty Start Date End Date Michaela Sweet MD PCP - General 07/10/16
--- OUTSIDE RECORDS SUMMARY | 2024-09-15 09:34 | XMS_ITS | Encounter Summary ---
Author Organization [facility] Address [address] [place] [address] Phone Care Team Providers Care Fountain Pen Nibs Inspector Name Role Phone Leigha Vega MD Primary Care Provider [phone] Robbie Cruz MD Unavailable [phone] Ángela Peraza APRN, TOMATO GRADER Unavailable Aguila Graff Primary Care Provider [phone] Reason for Visit * Reason Comments Medication Refill Encounter Details Date Type Department Care Team (Late st Contact Info) Description 10/28/2022 [facility]ill [facility] - Gastroenterology - [place] [address] [place] [address] lEva West Veronica, PAC [address] [place] [address] Medication Refill Social History Tobacco Use Types [...] scheduled. Called patient. Spoke with Sarah at [facility]. Patient scheduled an appt for 11/12/2022. documented in this encounter Plan of Treatment Upcoming Encounters Date Type Department Care Team (Late st Contact Info) Description 10/07/2024 11:00 AM CDT Office Visit [facility] - Primary Care - [place] [address] [place] [address] Aguila Graff PAC [address] [place] [address] 11/10/2024 11:00 AM CDT Office Visit [facility] Medical [facility] - Gastroenterology - [place] [address] [place] [address] Ángela Peraza APRN, TOMATO GRADER [address] [place] [address] 09/06/2025 10:00 AM CDT Office Visit [facility] - Neurology - [place] [address] [place] [address] Robbie Cruz MD [address] [place] [address] documented as of this encounter Visit Diagnoses Diagnosis Chronic constipation Unspecified constipation documented in this encounter Additional Health Concerns Infection Onset Date Last Indicated Resolved Time COVID - 19 01/24/2024 01/24/2024 01/24/2024 8:13 PM RESIDENT CARE TECHNICIAN documented as of this encounter Care Teams Fountain Pen Nibs Inspector Relationship Specialty Start Date End Date Leigha Vega MD [address] [place] [address] [address] PCP - General Family Medicine 11/09/20 04/07/24 Aguila Graff, [facility] [address] [place] [address] PCP - General Physician Director Non Profit 04/08/24 Robbie Cruz MD [address] [place] [address] Consulting Physician Neurology 09/05/22 Ángela Peraza APRN, TOMATO GRADER [address] [place] [address] Nurse Practitioner Advanced Practice Nurse 11/12/22 documented as of this encounter
--- OUTSIDE RECORDS SUMMARY | 2024-09-15 09:34 | XMS_ITS | Clinical Summary ---
Author Organization [facility] Address [address] [place] [address] Care Team Providers Care Heater Installer Name Role Phone Leigha Vega MD Primary Care Provider [phone] Source Comments [facility],non-owned Affiliates and Associated Physician Practices is amultiple site organization consisting of ambulatory clinics and hospital sitesin [place], [place], [place] and [place]. This disclosure is being madepursuant to the Care Everywhere program and may not contain all information available regarding this patient. Last updated 17.[facility] Allergies Active Allergy Reactions Criticality Noted Date Comments Morphine Anaphylaxis High 03/10/2017 Medications * Be aware that medications may not be up to date on this document. Alwaysverify current medications with the patient. allopurinol (ZYLOPRIM) 300 MG tablet Take 1 (one) tablet by mouth once daily 8 Active cetirizine (ZYRTEC) 10 MG tablet Take 1 (one) tablet by mouth once daily 8 Active DiphenhydrAMINE HCl, Sleep, (ZZZQUIL) 25 MG Take by mouth. 8 Active acetaminophen (TYLENOL) 325 MG tablet Take 2 (two) tablets by mouth q4h PRN (Pain) 8 Active Aspirin (ASPIRIN ADULT LOW STRENGTH) 81 MG Take 1 (one) tablet by mouth once daily 8 Active polyethylene glycol 3350 (MIRALAX) packet Take 17 (seventeen) g by mouth once daily 8 Active levothyroxine (SYNTHROID) 137 MCG tablet Take 1 (one) tablet by mouth once daily 7 Active simvastatin (ZOCOR) 40 MG tablet Take 1 (one) tablet by mouth once daily 7 Active divalproex ER 24hr (DEPAKOTE ER) 500 MG tablet Take 1 (one) tablet by mouth once daily 8 Active metoprolol tartrate (LOPRESSOR) 25 MG tablet Take 1 (one) tablet by mouth once daily 8 Active folic acid (FOLVITE) 1 MG tablet Take 1 (one) tablet by mouth once daily 8 Active alum & mag hydroxide-simet h (MAALOX ADVANCED) 200-200-20 MG/5ML suspension Take 30 mL by mouth as needed Active Multiple Vitamins-Minera ls (THEREMS-M) TABS Take 1 (one) tablet by mouth once daily 8 Active omeprazole (PRILOSEC) 40 MG capsule Take 20 capsules by mouth 2 times daily,before breakfast and supper 8 Active ARTIFICIAL TEARS 1.4 % ophthalmic solution Instill 1 (one) drop into both eyes 3 times daily 8 Active terbinafine (LAMISIL) 1 % cream Apply to affected area at bedtime 8 Active B Complex Vitamins (B COMPLEX PO) Take 1 capsule by mouth once daily Active albuterol HFA (PROAIR HFA) 108 (90 BASE) MCG/ACT inhaler Inhale 2 puffs by mouth every 4 hours as needed Active Jfbsr-Zqpco-Gxk ymyx-Pramoxine (TRIPLE ANTIBIOTIC PLUS) 1 % Active montelukast (SINGULAIR) 10 MG tablet Take 1 tablet by mouth at bedtime 30 tablet 11 0 Active terbinafine (LAMISIL) 250 MG tablet 1 Active selenium sulfide (SELSUN) 2.5 % lotion 0 Active fluticasone propionate (FLONASE) 50 MCG/ACT nasal spray INSTILL 2 SPRAYS INTO EACH NOSTRIL ONCE DAILY. 8AM 16 g 5 1 Active Calcium Carb-Cholecalci ferol (Oyster Shell Calcium w/D) 500-5 MG-MCG TABS Take 1 tablet by mouth 3 times daily 3 Active gabapentin (Neurontin) 100 MG capsule Take 1 (one) capsule by mouth 3 times daily 3 Active losartan (Cozaar) 25 MG tablet Take 1 (one) tablet by mouth once daily 3 Active sucralfate (Carafate) 1 GM tablet Take 1 (one) tablet by mouth 2 times daily 3 Active bisacodyl EC 5 MG tablet Take 1 (one) tablet by mouth as needed for Constipation Active loperamide (Imodium) 2 MG capsule Take 1 (one) capsule by mouth 2 times daily as needed for Diarrhea Active Dextromethorpha n-guaiFENesin (Robafen DM) 20-200 MG/20ML LIQD Take 10 mL by mouth as needed Active acetaminophen CR (Tylenol Arthritis Pain) 650 MG tablet Take 1 (one) tablet by mouth every 6 hours as needed for Pain 4 Active carboxymethylce llulose sodium 0.5 % ophthalmic solution Instill 1 (one) drop into both eyes 3 times daily 4 Active divalproex ER 24hr (Depakote ER) 250 MG tablet Take 1 (one) tablet by mouth once daily 4 Active donepezil (Aricept) 10 MG tablet Take 1 (one) tablet by mouth at bedtime 4 Active famotidine (Pepcid) 20 MG tablet Take 1 (one) tablet by mouth once daily 4 Active OLANZapine (ZyPREXA) 7.5 MG tablet Take 1 (one) tablet by mouth at bedtime 4 Active Emollient (CeraVe PM) LOTN 1 Dose [...] 12/16/2017 UARS (upper airway resistance syndrome) 11/19/19 Allergic rhinitis 11/18/2017 Sleep related leg cramps [...] 10/17/2017 Overview (10/03/2017): Overview: Both ears Immunizations Immunization Administration Dates Next Due INFLUENZA VACCINE, TRIV. (AF LURIA, FLUZONE TRIVALENT; 6MO+) (IIV3) 11/24/2012 BCG CORRECTION, HISTORIC VACCINE 04/01/2022 COVID PFIZER BIVALENT 12Y+ [...] at Not on file Legal Sex Male 5:21 PM FRONT DESK AGENT Gender Identity Not on file Sexual Orientation [...] 10:46 AM CDT Height 162.6 cm (5' 4) 10/02/2021 3:39 PM CDT Body Mass Index [...] 2023 01/29/2023, 12/06/2021, 09/21/2021, Additional history exists DEPRESSION SCREENING 02/11/2024 INFLUENZA VACCINE (#1) 2024 , 12/06/2021, 11/17/2020, Additional history exists DTAP/TDAP/TD VACCINES (5 - Td or Tdap) 10/19/2029 10/20/2019, 03/13/2008, 07/13/2007, Additional history exists HIB VACCINE Aged Out 11/07/1997 No longer eligi ble based on patient's age to complete this topic HEPATITIS B VACCINE Completed 04/17/1998, 12/06/1997, 11/07/1997 HPV VACCINE Aged Out No longer eligi ble based on patient's age to complete this topic MENINGOCOCCAL (Group B) VACCINE SHARED DECISION-MAKING Aged Out No longer eligible based on patient's age to complete this topic MENINGOCOCCAL GROUPS A/C/Y/W VACCINE Aged Out No longer eligible based on patient's age to complete this topic Insurance [facility] [address] [place], [place] [address] MEDICARE MEDICAID - [facility] MEDICARE MEDICAID - [place] Care Teams Heater Installer Relationship Specialty Start Date End Date Leigha Vega MD [address] [place] [address] [place] [address] PCP - General Family Medicine 11/05/22
--- OUTSIDE RECORDS SUMMARY | 2024-09-15 09:34 | XMS_ITS | Encounter Summary ---
Author Organization [facility] Address [address] [place] [address] Phone Care Team Providers Care Grocery Checker Name Role Phone Leigha Vega MD Primary Care Provider [phone] Robbie Cruz MD Unavailable [phone] Ángela Peraza APRN, HOUSEHOLD APPLIANCES SALESPERSON Unavailable Aguila Graff Primary Care Provider [phone] Encounter Details Date Type Department Care Team (Late st Contact Info) Description 04/08/2022 Nursing Facility [facility] [address] [place] [address] Ezio Dillon, RED [address] [place], [place] [address] Social History Tobacco Use Types Packs/Day Years [...] Progress Notes * Ezio Dillon PAC - 04/08/2022 12:13 PM CST [facility] PROGRESS NOTE Geo Grimaldo is a 52 y.o. male at [facility] for rehabilitation. Geo Grimaldo is a 52 y.o. male who has transferred to [facility] from [facility] for post-acute care and rehabilitation before returning to his [place] [facility] [place]. The patient has intellectual disability due to [...] over the weekend and was sent to [facility] where apparently workup was unremarkable and [...] COLON, HEMORRHOIDS; Surgeon: Audi Almaguer MD; Location: [facility] GI LAB; Service: Gastroenterology ??? FOOT SURGERY X2, MOM STATES PT WAS IN 20'S ??? TYMPANOSTOMY TUBE PLACEMENT PT MOTHER STATES WHEN PT WAS A BABY ??? UPPER GASTROINTESTINAL ENDOSCOPY [id number] ??? UPPER GASTROINTESTINAL ENDOSCOPY Left 09/03/2016 Procedure: EGD ERIC TEST, SMALL BOWEL BIOPSY, DUODENAL BULB LESION BIOPSY, DISTAL, MID, AND PROXIMALESOPHAGEAL BIOPSIES; Surgeon: Audi Almaguer MD; Location: [facility] GI [facility]; Service: Gastroenterology Review of [...] He [place]. [place] [facility] [place] not very comfortablewith the supplemental oxygen so he either needs to be weaned off of it completely or needs to be very clear guidelines on it. This note was dictated using [employer] fluency dictation system and there may be errors in reptile farmer. Despite proof reading the note, there may be mistakes and I apologize for those. By: RED Menjivar, 04/08/2022 12:20 PM EP TECHNOLOGIST TECHNOLOGIST documented in this encounter Plan of Treatment Upcoming Encounters Date Type Department Care Team (Late st Contact Info) Description 10/07/2024 11:00 AM CDT Office Visit [facility] - Primary Care - [place] [address] [place] [phone] Aguila Graff, PAC [address] [place] [address] 11/10/2024 11:00 AM CDT Office Visit [facility] Medical [facility] - Gastroenterology - [place] [address] [place] [address] Ángela Peraza APRN, HOUSEHOLD APPLIANCES SALESPERSON [address] [place] [address] 09/06/2025 10:00 AM CDT [facility] - [place] [address] [place] [address] Robbie Cruz MD [address] [place] [address] documented as of this encounter Visit Diagnoses Not on filedocumented in this encounter Additional Health Concerns Infection Onset Date Last Indicated Resolved Time COVID - 19 01/24/2024 01/24/2024 01/24/2024 8:13 PM EP TECHNOLOGIST documented as of this encounter Care Teams Grocery Checker Relationship Specialty Start Date End Date Leigha Vega MD [address] [place] [address] PCP - General Family Medicine 11/09/20 04/07/24 Aguila Graff, [facility] [address] [place] [address] PCP - General Physician Event Staff 04/08/24 Robbie Cruz MD [address] [place] [address] Consulting Physician Neurology 09/05/22 Ángela Peraza APRN, HOUSEHOLD APPLIANCES SALESPERSON [address] [place], [place] [id number] Nurse Practitioner Advanced Practice Nurse 11/12/22 documented as of this encounter
--- OUTSIDE RECORDS SUMMARY | 2024-09-15 09:34 | XMS_ITS | Encounter Summary ---
Author Organization [facility] Address [address] [place] [address] Phone Care Team Providers Care Pheresis Specialist Name Role Phone Leigha Vega MD Primary Care Provider [phone] Robbie Cruz MD Unavailable [phone] Ángela Peraza APRN, MACHINE WELT BUTTER Unavailable Aguila Graff Primary Care Provider [phone] Encounter Details Date Type Department Care Team (Late st Contact Info) Description 04/22/2022 [facility] [address] [place] [address] Ezio Dillon, RED [address] [place], [place] [address] Social History Tobacco Use Types Packs/Day Years [...] Progress Notes * Ezio Dillon PAC - 04/22/2022 12:27 PM CDT [facility] PROGRESS NOTE Geo Grimaldo is a 52 y.o. male at [facility] for rehabilitation. Geo Grimaldo is a 52 y.o. male who has transferred to [facility] from [facility] for post-acute care and rehabilitation before returning to his [facility]. The patient has intellectual disability due to [...] COLON, HEMORRHOIDS; Surgeon: Audi Almaguer MD; Location: [facility]; Service: Gastroenterology ??? FOOT SURGERY X2, MOM STATES PT WAS IN 20'S ??? TYMPANOSTOMY TUBE PLACEMENT PT MOTHER STATES WHEN PT WAS A BABY ??? UPPER GASTROINTESTINAL ENDOSCOPY [id number] ??? UPPER GASTROINTESTINAL ENDOSCOPY Left 09/03/2016 Procedure: EGD ERIC TEST, SMALL BOWEL BIOPSY, DUODENAL BULB LESION BIOPSY, DISTAL, MID, AND PROXIMALESOPHAGEAL BIOPSIES; Surgeon: Audi Almaguer MD; Location: [facility]; Service: Gastroenterology Review [...] Continue dementia treatment with Aricept. resides at [facility]. Depression and Schizophrenia. The patient's mood [...] Disposition: 04/19: Planning for discharge back to [facility] on 04/25. Has been successfully weanedoff the supplemental oxygen for some time now so does not need that. Speech therapy has recommendedpureed diet which she has done well with this and will need to continue after discharge. This note was dictated using [employer] fluency dictation system and there may be errors in methods time analyst. Despite proof reading the note, there may be mistakes and I apologize for those. By: RED Menjivar, 04/22/2022 12:27 PM CDT documented in this encounter Plan of Treatment Upcoming Encounters Date Type Department Care Team (Late st Contact Info) Description 10/07/2024 11:00 AM CDT Office Visit [facility] - Primary Care - [place] [address] [place] [address] Aguila Graff, PAC [address] [place] [address] 11/10/2024 11:00 AM CDT Office Visit [facility] - Gastroenterology - [place] [address] [place] [address] Ángela Peraza APRN, MACHINE WELT BUTTER [address] [place] [address] 09/06/2025 10:00 AM CDT Office Visit [facility] - Neurology - [place] [address] [place] [address] Robbie Cruz MD [address] [place] [address] documented as of this encounter Visit Diagnoses Not on filedocumented in this encounter Additional Health Concerns Infection Onset Date Last Indicated Resolved Time COVID - 19 01/24/2024 01/24/2024 01/24/2024 8:13 PM ASSEMBLER TYPE BAR AND SEGMENT documented as of this encounter Care Teams Pheresis Specialist Relationship Specialty Start Date End Date Leigha Vega MD [address] [place] [address] [address] [place], [place] [phone] PCP - General Family Medicine 11/09/20 04/07/24 Aguila Graff, PAC [address] [place] [address] PCP - General Physician Wrap Yarn Sorter 04/08/24 Robbie Cruz MD [address] [place] [address] Consulting Physician Neurology 09/05/22 Ángela Peraza APRN, MACHINE WELT BUTTER [address] [place] [address] Nurse Practitioner Advanced Practice Nurse 11/12/22 documented as of this encounter
--- OUTSIDE RECORDS SUMMARY | 2024-09-15 09:34 | XMS_ITS | Encounter Summary ---
Author Organization [facility] Address [address] [place] [address] Phone Care Team Providers Care Basket Grader Name Role Phone Leigha Vega MD Primary Care Provider [phone] Robbie Cruz MD Unavailable [phone] Ángela Peraza APRN, RADIO NEWS WRITER Unavailable Aguila Graff Primary Care Provider [phone] Encounter Details Date Type Department Care Team (Late st Contact Info) Description 04/04/2022 [facility] [address] [place] [address] Ezio Dillon, RED [address] [place], [place] [address] Social History Tobacco Use Types Packs/Day Years [...] Progress Notes * Ezio Dillon PAC - 04/04/2022 5:[address] [facility] PROGRESS NOTE Geo Grimaldo is a 52 y.o. male at [facility] for rehabilitation. Geo Grimaldo is a 52 y.o. male who has transferred to [facility] from [facility] for post-acute care and rehabilitation before returning to his correction. The patient has intellectual disability due to [...] COLON, HEMORRHOIDS; Surgeon: Audi Almaguer MD; Location: [facility]; Service: Gastroenterology ??? FOOT SURGERY X2, MOM STATES PT WAS IN 20'S ??? TYMPANOSTOMY TUBE PLACEMENT PT MOTHER STATES WHEN PT WAS A BABY ??? UPPER GASTROINTESTINAL ENDOSCOPY [id number] ??? UPPER GASTROINTESTINAL ENDOSCOPY Left 09/03/2016 Procedure: EGD ERIC TEST, SMALL BOWEL BIOPSY, DUODENAL BULB LESION BIOPSY, DISTAL, MID, AND PROXIMALESOPHAGEAL BIOPSIES; Surgeon: Audi Almaguer MD; Location: [facility]; Service: Gastroenterology [...] He will be going back to his correction. Apparently correction is not very comfortablewith the supplemental oxygen so he either needs to be weaned off of it completely or needs to be very clear guidelines on it. This note was dictated using [employer] fluency dictation system and there may be errors in upholsterer apprentice. Despite proof reading the note, there may be mistakes and I apologize for those. By: RED Menjivar, 04/04/2022 5:30 PM TIRE SHOP MECHANIC SHOP MECHANIC documented in this encounter Plan of Treatment Upcoming Encounters Date Type Department Care Team (Late st Contact Info) Description 10/07/2024 11:00 AM CDT Office Visit [facility] - Primary Care - [place] [address] [place] [address] Aguila Graff, PAC [address] [place] [phone] 11/10/2024 11:00 AM CDT Office Visit [facility] - Gastroenterology - [place] [address] [place] [address] Ángela Peraza APRN, RADIO NEWS WRITER [address] [place] [address] 09/06/2025 10:00 AM CDT Office Visit [facility] [address] [place] [address] Robbie Cruz MD [address] [place] [address] documented as of this encounter Visit Diagnoses Not on filedocumented in this encounter Additional Health Concerns Infection Onset Date Last Indicated Resolved Time COVID - 19 01/24/2024 01/24/2024 01/24/2024 8:13 PM TIRE SHOP MECHANIC documented as of this encounter Care Teams Basket Grader Relationship Specialty Start Date End Date Leigha Vega MD [address] [place] [address] PCP - General Family Medicine 11/09/20 04/07/24 Aguila Graff PAC [address] [place] [phone] PCP - General Physician Animal Maintenance Supervisor 04/08/24 Robbie Cruz MD [address] [place] [phone] Consulting Physician Neurology 09/05/22 Ángela Peraza APRN, RADIO NEWS WRITER [address] [place] [address] Nurse Practitioner Advanced Practice Nurse 11/12/22 documented as of this encounter
--- OUTSIDE RECORDS SUMMARY | 2024-09-15 09:34 | XMS_ITS | Clinical Summary ---
Author Organization [facility] Address [address] [place] [address] Phone Care Team Providers Care Pump Operator Byproducts Name Role Phone Robbie Cruz MD Unavailable [phone] Ángela Peraza APRN, PRINTING PRESS OPERATOR Unavailable Aguila Graff Primary Care Provider [phone] Allergies Active Allergy Reactions Criticality Noted Date Comments Morphine Unknown 01/04/2016 Other-Environmental Allergen (Not Found In Search) Unknown Medium 03/28/2022 Medications allopurinol (ZYLOPRIM) 300 MG TabletIndications :Primary [...] mg by mouth 2 times daily. Active Calcium Carbonate-Vitamin D (OYSTER SHELL CALCIUM/D) [...] atorvastatin (LIPITOR) 40 MG Tablet 4 Active Emollient (CeraVe PM) Lotion Apply 1 Dose. Activ e senna (SENOKOT) 8.6 MG Tablet Take 1 Tablet by mouth daily. 30 Tablet 4 Active Dextran 70-Hypromellose (GenTeal Tears) 0.1-0.3 % Solution 1 drop three times daily to both eyes. 30 mL 5 Active divalproex (Depakote) 250 MG Tablet Delayed Response Take 250 mg by mouth daily. 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 10/03/2017 Severe intellectual disabilities 01/24/2017 Trisomy 21, Down syndrome 01/22/2017 Schizophrenia 01/22/2017 Gout 01/22/2017 Conductive hearing loss Overview (10/20/2014): External ear Dementia Peptic ulcer Resolved Problems Problem Noted Date Diagnosed Date Resolved Date Sepsis 01/25/2024 04/08/2024 Streptococcal pharyngitis 01/25/2024 Severe sepsis with septic shock (CODE) 01/25/2024 04/08/2024 CAP (community acquired pneumonia) 01/22/2017 04/08/2024 Cerumen impaction 04/08/2024 Overview (10/20/2014): Both ears Encounters Date Type Department Care Team Description 09/07/2024 10:00 AM CDT [facility] - [facility] - [place] [address] [place] [address] Robbie Cruz MD 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 (HCC) (Primary Dx); Schizophrenia, unspecified type; Down's syndrome; Tremor Discharge Disposition: Discharged to home or Selfcare 09/07/2024 Travel 07/21/2024 Telephone [facility] - Gastroenterology [facility] [address] [place] [address] Ángela Peraza APRN, PRINTING PRESS OPERATOR 06/28/2024 [facility]phone [facility] [address] [place] [address] Aguila Graff, PAC Need Order 06/23/2024 Telephone [facility] [address] [place] [address] Aguila Graff, PAC Medication Management from Last 3 Months Immunizations Immunization Administration Dates Next Due BCG Vaccine 04/01/2022 Covid-19, Mrna, Lnp-s, Pf, 1 00 Mcg Or 50 Mcg Dose (MODERNA) 11/17/2020,04/16/2020,03/26/2020 Covid-19, Mrna, Lnp-s, Pf, 3 0 Mcg/0.3 Ml Dose (Pretty Padded Room) 11/17/2020,04/16/2020,03/26/2020 Hepatitis B Vaccine,unspecif ied Formulation 12/06/1997,11/07/1997 Hepatitis B-CpG 04/17/1998 Influenza Vaccine greater than 3 yrs 11/24/2012 Influenza Vaccine, Quadrivalent, PF 10/12,12/06/2021,11/17/2020,11/24,11/07/2017 Influenza Vaccine,unspecifie d Formulation 10/11/2017 Influenza, Injectable, Quadrivalent 11/10,10/21/2016,12/14/2015,11/10 Influenza, Seasonal, Injecta ble, Undefined 11/11/2014,11/11/2013,11/24/2012 Influenza,Split Virus,Trivalent,Injectable,PF 01/27/2024(),11/20/2023 Pneumococcal Vaccine Adult - 23 Valent 9,02/11/2008 Pneumococcal Vaccine, Unspec ified Formulation 06/16/2008,03/16/2003,12/08/1997 Pneumococcal conjugate PCV20 , polysaccharide [id number] conjugate, adjuvant, PF 04/08/2024 TB Skin Test 04/01/2022,09/10/2012 TD VACCINE 03/13/2008 TDAP Vaccine 10/20/2019,07/13/2007 Td, Unspecified Formulation 11/07/1997 Tetanus Toxoid, Unspecified Formulation 11/07/1997 Family History [...] 0.6 oz pur e alcohol) [facility] Utilities Answer Date Recorded In the past 12 months has th e electric, gas, oil, or water company threatened to shut off services in your home? Patient unable to answer 01/25/2024 Overall Financial Resource Strain (CARDIA) Answe r Date Recorded How hard is it for you to pa y for the very basics like food, housing, medical care, and heating? Patient unable to answer 01/25/2024 PHQ-2 Answer Date Recorded Total Score - Questions 1-9 0 03/14 [facility] - Occupational Stress [...] any time in the past 12 m [facility], were you homeless or living in a retirement (including now)? Patient unable to answer 01/25/2024 Sexually Active Control Partners Comments Not Currently Sex and Gender Information Value Date Recorded Sex Assigned at Not on file Legal Sex Male 8:02 PM CDT Gender Identity Not on file Sexual Orientation Not on file Last Filed Vital Signs Vital Sign Reading Time Taken Comments Blood Pressure 120/60 09/07/2024 10:09 AM CDT Pulse 62 09/07/2024 10:09 AM CDT Temperature 36.6 C (97.9 F) 09/07/2024 10:09 AM CDT Respiratory Rate 20 09/07/2024 10:09 AM CDT Oxygen Saturation 95% 09/07/2024 10:09 AM CDT Inhaled Oxygen Concentration - - Weight 81.9 kg (180 lb 8 oz) 09/07/2024 10:09 AM CDT Height 160 cm (5' 3) 09/07/2024 10:09 AM CDT Body Mass Index 31.97 09/07/2024 10:09 AM CDT Plan of Treatment Upcoming Encounters Date Type Department Care Team (Late st Contact Info) Description 10/07/2024 11:00 AM CDT Office Visit [facility] - Primary Care - [place] [address] [place] [address] Aguila Graff PAC [address] [place] [address] 11/10/2024 11:00 AM CDT Office Visit [facility] - Gastroenterology - [place] [address] [place] [phone] Ángela Peraza APRN, PRINTING PRESS OPERATOR [address] [place] [address] 09/06/2025 10:00 AM CDT Office Visit [facility] - Neurology - [place] [address] [place] [address] Robbie Cruz MD [address] [place] [address] Health Maintenance Due Date Last Done Comments Hepatitis C Virus (HCV) Screening 1970 Cologuard 2014 Immunochemical Fecal Occult Blood 2014 Zoster Immunization (1 of 2) 2019 Colonoscopy 10/08/2024 10/08/2017 Colorectal Cancer Screening 10/08/2024 Influenza Immunization (#1) 10/11/202411/10, 11/06/2022, 12/06/2021, Additional history exists Td Immunization Every 10 Years (Adults With 1 Tdap) 10/19/2029 10/20/2019, 03/13/2008, 07/13/2007, Additional history exists Respiratory Syncytial Virus (RSV) Immunization (Adult) (1 - 1-dose 75+ series) 2044 Hepatitis B Immunization Completed 999, 12/06/1997, 11/07/1997 PSA Discussion Completed 09/21/2019 DTaP/Tdap/Td Immunization Discontinued 2019, 03/13/2008, 07/13/2007, Additional history exists SARS-COV-2 Immunization Completed 11/20/19 24, 01/29/2023, 12/06/2021, Additional history exists Down Syndrome: Echocardiogram Discontinued 11/26/2023, 03/15/2016 Pneumococcal Immunization (50+ years) Completed 04/08/2024, 06/09/2018, 06/16/2008, Additional history exists Pneumococcal Immunization Combined Discontinued 04/08/2024, 06/09/2018, 06/16/2008, Additional history exists Down Syndrome: Complete Blood Count Discontinued 05/26/2024, 01/27/2024, 01/26/2024, Additional history exists Down Syndrome: Iron Studies Discontinued 05/26/2024, 0 05/26/2024 Down Syndrome: TSH Level Discontinued 025, 01/26/2024, 09/03/2019, Additional history exists Human Papillomavirus (HPV) Immunization Aged Out No longer eligible based on patient's age to complete this topic Meningococcal Immunization (ACWY) Aged Out No longer eligible based on patient's age to complete this topic Rotavirus Immunization Aged Out No lo nger eligible based on patient's age to complete this topic Procedures Procedure Name Priority Date/Time Associated Diagnosis Comments HM DILATED EYE EXAM 06/24/2024 1 2:00 AM CDT COMPLETE BLOOD COUNT (CBC) WITH DIFF 05/26/2024 12:00 AM CDT FERRITIN 05/26/2024 12:00 AM CDT THYROID STIMULATING HORMONE (TSH) 05/26/2024 12:00 AM CDT PSA SCREEN Routine 09/21/2019 ADULT TRANS THORACIC ECHO 2D COMPLETE Routine 03/15/2016 8:54 AM MANAGER TITLE Chest pain, unspecified Hyperlipidemia, unspecified hyperlipidemia type from Last 3 Months or Most Recently Relevant to Health Maintenance Results * HM DILATED EYE EXAM (06/24/2024 12:00 AM CDT) 06/24/2024 us Provider Scan PROCEDURE/MINOR SURGICAL ORDERAB LES Final Result Performing Organization Address [facility] Co de Phone Number SCAN * THYROID STIMULATING HORMONE (TSH) (05/26/2024 12:00 AM CDT) 05/26/2024 us Provider Scan CHEMISTRY ORDERABLES Final Resul t Performing Organization Address [facility] Co de Phone Number SCAN * FERRITIN (05/26/2024 12:00 AM CDT) 05/26/2024 us Provider Scan CHEMISTRY ORDERABLES Final Resul t Performing Organization Address [facility] Co de Phone Number SCAN * COMPLETE BLOOD COUNT (CBC) WITH DIFF (05/26/2024 12:00 AM CDT) 05/26/2024 us Provider Scan HEMATOLOGY ORDERABLES Final Resu lt SCAN * PSA SCREEN (09/21/2019) PSA (PROSTATE SPECIFIC ANTIGEN) 0.1 ng/mL Blood 09/21/2019 Eliane Rice Yogi RN CASE MGR, PRINTING PRESS OPERATOR CHEMISTRY ORDERABLES F inal Result * ADULT TRANS THORACIC ECHO 2D COMPLETE (03/15/2016 8:54 AM MANAGER TITLE) AV Peak Grad mmHg 3.57 mmHg RESULTING [...] CARDIO N/A Ultrasound Narrative 03/15/2016 8:31 AM MANAGER TITLE Transthoracic Echocardiography Report (TTE) Patient name Dillan Szymanski Rebel 1970 Patient ID (UPI) [id number] Indications: Chest pain. Study Date03/15/2016 Technical quality: [...] lbs. BMI (BSA) 40.25 kg/m^2 (1.88 m^2) Merchandising Stock Associate Gonzalez Dickerson Interpreting Christian Martinez MD, Referring Christian Tiwari Physician [facility] Physician Christian Tiwari Procedure Note Michelle Gonzales MD - 03/15/2016 Transthoracic Echocardiography Report (TTE) Patient name Dillan Szymanski Rebel 1970 Patient ID (UPI) [id number] Indications: Chest pain. Study Date03/15/2016 Technical quality: [...] lbs. BMI (BSA) 40.25 kg/m^2 (1.88 m^2) Merchandising Stock Associate Gonzalez Dickerson Interpreting Christian Martinez MD, Referring Christian Tiwari Physician [facility] Physician Christian Tiwari Michelle Gonzales MD IMG ECHO ORDERABLES Final Result from Last 3 Months or Most Recently Relevant to Health Maintenance Insurance MEDICARE [place]ICAID [place] Advance Directives Documents on File Type Date Recorded Patient Director Of Publications Expl anation Guardian of Person 01/26/2024 6:07 AM TARSHAA ALESSANDRO, [birth year]1997 POLST/POST/UT DNR 01/25/2024 12:[address], 01/25/2024 [...] measures to stabilize the patient. Care Teams Pump Operator Byproducts Relationship Specialty Start Date End Date Aguila Graff, PAC [address] [place] [phone] PCP - General Physician Dried Yeast Supervisor 04/08/24 Robbie Cruz MD [address] [place] [address] Consulting Physician Neurology 09/05/22 Ángela Peraza APRN, PRINTING PRESS OPERATOR [address] [place] [address] Nurse Practitioner Advanced Practice Nurse 11/12/22
--- OUTSIDE RECORDS SUMMARY | 2024-09-15 09:34 | XMS_ITS | Encounter Summary ---
Author Organization [facility] Address [address] [place] [address] Phone Care Team Providers Care Kick Press Operator Name Role Phone Myke Aguilar MD Primary Care Provider [phone] Robbie Cruz MD Unavailable [phone] Ángela Peraza APRN, BLOCK SORTER Unavailable Aguila Graff Primary Care Provider [phone] Encounter Details Date Type Department Care Team (Late st Contact Info) Description 03/29/2022 [facility] [address] [place] [address] Velasquez Moreau MD [address] [place] [address] Social History Tobacco Use Types Packs/Day Years [...] Moreau MD - 03/29/2022 11:59 PM CST [facility] Detention History and Physical Chief Complaint: pneumonia HPI: Geo Grimaldo is a 52 y.o. male who has transferred to [facility] from [facility] for post-acute care and rehabilitation before returning to his [facility]. The patient has intellectual disability due to [...] medical history Review of Prior External Notes: [facility] ED and inpatient records Allergies: is allergic to morphine. Past Medical History: He has a past medical history of Dementia ([facility]), Depression, Gastritis, Gout,Mild intellectual disabilities, Peptic ulcer, Schizophrenia ([facility]), Sleep apnea, and Trisomy 21, Down syndrome. Surgical History: has a past surgical history that includes Colonoscopy (01/29/12); Upper Gastrointestinal Endoscopy (813407); Foot Surgery; Tympanostomy Tube Placement; Upper Gastrointestinal [...] baseline with the goal of discharging to [facility]. Barriers to Rehabilitation: intellectual disability/Down syndrome, reliant on caregivers, lives in [facility] Advance Care Planning: the patient has severe [...] the note. Velasquez Moreau M.D. 2:00 PM TILE PRESS OPERATOR TILE PRESS OPERATOR TILE PRESS OPERATOR documented in this encounter Plan of Treatment Upcoming Encounters Date Type Department Care Team (Late st Contact Info) Description 10/07/2024 11:00 AM CDT Office Visit [facility] - Primary Care - [place] [address] [place] [address] Aguila Graff PAC [address] [facility] [place] [address] 11/10/2024 11:00 AM CDT Office Visit [facility] - Gastroenterology - [place] [address] [place] [address] Ángela Peraza APRN, BLOCK SORTER [address] [place] [address] 09/06/2025 10:00 AM CDT Office Visit [facility] - Neurology - [place] [address] [place] [address] Robbie Cruz MD [address] [place] [phone] documented as of this encounter Visit Diagnoses Not on filedocumented in this encounter Additional Health Concerns Infection Onset Date Last Indicated Resolved Time COVID - 19 01/24/2024 01/24/2024 01/24/2024 8:13 PM FLUE TILE PRESS OPERATOR documented as of this encounter Care Teams Kick Press Operator Relationship Specialty Start Date End Date Myke Aguilar MD [address] [place] [address] [place] [address] PCP - General Family Medicine 11/09/20 04/07/24 Aguial Graff PAC [address] [place] [address] PCP - General Physician Chrome Worker 04/08/24 Robbie Cruz MD [address] [place] [address] Consulting Physician Neurology 09/05/22 Ángela Peraza APRN, BLOCK SORTER [address] [place] [address] Nurse Practitioner Advanced Practice Nurse 11/12/22 documented as of this encounter
--- OUTSIDE RECORDS SUMMARY | 2024-09-15 09:34 | XMS_ITS | Encounter Summary ---
Author Organization [facility] Address [address] [place] [address] Phone Care Team Providers Care Cosmetology Instructor Name Role Phone Leigha Vega MD Primary Care Provider [phone] Robbie Cruz MD Unavailable [phone] Ángela Peraza APRN, FIBERGLASS FINISHER Unavailable Aguila Graff Primary Care Provider [phone] Encounter Details Date Type Department Care Team (Late st Contact Info) Description 04/15/2022 Nursing [facility] [address] [place] [address] Ezio Dillon, RED [address] [place], [place] [id number] Social History Tobacco Use Types Packs/Day Years [...] Progress Notes * Ezio Dillon PAC - 04/15/2022 4:14 PM CST [facility] PROGRESS NOTE Geo Grimaldo is a 52 y.o. male at [facility] for rehabilitation. Geo Grimaldo is a 52 y.o. male who has transferred to [facility] from [facility] for post-acute care and rehabilitation before [...] 10/08/2017 Procedure: COLONOSCOPY NEGATIVE COLON, HEMORRHOIDS; Surgeon: Adui Almaguer MD; Location: [facility]; Service: Gastroenterology ??? FOOT SURGERY X2, MOM STATES PT WAS IN 20'S ??? TYMPANOSTOMY TUBE PLACEMENT PT MOTHER STATES WHEN PT WAS A BABY ??? UPPER GASTROINTESTINAL ENDOSCOPY [id number] ??? UPPER GASTROINTESTINAL ENDOSCOPY Left 09/03/2016 Procedure: [...] Continue dementia treatment with Aricept. resides at correction 6. Depression and Schizophrenia. The patient's mood [...] on it. This note was dictated using [employer] fluency dictation system and there may be errors in terrazzo tile maker. Despite proof reading the note, there may be mistakes and I apologize for those. By: RED Menjivar, 04/15/2022 4:14 PM PULVI MIXER OPERATOR I MIXER OPERATOR documented in this encounter Plan of Treatment Upcoming Encounters Date Type Department Care Team (Late st Contact Info) Description 10/07/2024 11:00 AM CDT Office Visit [facility] - Primary Care - [place] [address] [place] [address] Aguila Graff, RED [address] [place] [phone] 11/10/2024 11:00 AM CDT Office Visit [facility] - Gastroenterology - [place] [address] [place] [address] Ángela Peraza APRN, FIBERGLASS FINISHER [address] [place] [address] 09/06/2025 10:00 AM CDT [facility] [place] [address] [place] [phone] Robbie Cruz MD [address] [place] [phone] documented as of this encounter Visit Diagnoses Not on filedocumented in this encounter Additional Health Concerns Infection Onset Date Last Indicated Resolved Time COVID - 19 01/24/2024 01/24/2024 01/24/2024 8:13 PM PULVI MIXER OPERATOR documented as of this encounter Care Teams Cosmetology Instructor Relationship Specialty Start Date End Date Leigha Vega MD [address] [place] [id number] PCP - General Family Medicine 11/09/20 04/07/24 Aguila Graff, PAC [address] [place] [address] PCP - General Physician Optometry Teacher 04/08/24 Robbie Cruz MD [address] [place] [address] Consulting Physician Neurology 09/05/22 Ángela Peraza APRN, FIBERGLASS FINISHER [address] [place] [address] Nurse Practitioner Advanced Practice Nurse 11/12/22 documented as of this encounter
--- OUTSIDE RECORDS SUMMARY | 2024-09-15 09:34 | XMS_ITS | Encounter Summary ---
Author Organization [facility] Address [address] [place] [address] Phone Care Team Providers Care Winding Operator Name Role Phone Myke Aguilar MD Primary Care Provider [phone] Robbie Cruz MD Unavailable [phone] Ángela Peraza APRN, NANOSCIENCE TECHNICIAN Unavailable Aguila Graff Primary Care Provider [phone] Encounter Details Date Type Department Care Team (Late st Contact Info) Description 04/25/2022 [facility] [address] [place] [address] Ezio Dillon, RED [address] [place], [place] [id number] Social History Tobacco Use Types Packs/Day Years [...] Progress Notes * Ezio Dillon PAC - 04/25/2022 11:15 AM CDT [facility] DISCHARGE SUMMARY Name: Geo Grimaldo Age: 52 y.o. : 1970 Attending Physician: No att. providers found Admission Date/Time: 03/29/2022 Expected Discharge Date: 04/25/2022 Primary Care Physician: MYKE AGUILAR MD Discharging Provider: RED Menjivar INSTRUCTIONS FOR PHYSICIANS ON FOLLOW UP AFTER DISCHARGE: Follow-up with PCP in 1-2 weeks Discharge Instructions: Discharge Condition: improved Disposition: Back to his [facility]ci Diet: Regular diet, pureed texture Activity: activity [...] deficiency, obesity, dysphagia SKILLED CARE COURSE: Geo Grimaldo was admitted to long-term facility for acute care rehabilitation. Prior to coming to rehabilitation facility he was hospitalized at [facility] from 03/20 to 03/28 for pneumonia and was treated with steroid therapy and antibiotics. He came to the facility on supplemental oxygen. With time he was successfully weaned off of oxygen and has been maintaining normal O2 saturations on room air for the last couple weeks now. While at the rehabilitation facility, the patient received long-term care and physical therapy rehabilitation. The patient [...] looking forward to going back to his fci. Exam Day of Discharge: Vital Signs: B/P: [...] Patient will be discharging back to the fci later today. Home health for PT/OT will be ordered. Understands to continue all current medications as directed and follow up with PCP in 1-2 weeks. I have spent time coordinating care for this long-term facility discharge: Greater than 30 minutes spent in coordinating care This note was dictated using [employer] fluency dictation system and there may be errors in nutritionist public health. Despite proof reading the note, there may be mistakes and I apologize for those. Signed: RED Menjivar, 04/25/2022, 11:16 AM CDT documented in this encounter Plan of Treatment Upcoming Encounters Date Type Department Care Team (Late st Contact Info) Description 10/07/2024 11:00 AM CDT Office Visit [facility] - Primary Care - [place] [address] [place] [address] Aguila Graff, PAC [address] [place] [phone] 11/10/2024 11:00 AM CDT Office Visit [facility] - Gastroenterology - [place] [address] [place] [phone] Ángela Peraza APRN, NANOSCIENCE TECHNICIAN [address] [place] [address] 09/06/2025 10:00 AM CDT Office Visit [facility] - Neurology [facility] [address] [place] [address] Robbie Cruz MD [address] [place] [address] documented as of this encounter Visit Diagnoses Not on filedocumented in this encounter Additional Health Concerns Infection Onset Date Last Indicated Resolved Time COVID - 19 01/24/2024 01/24/2024 01/24/2024 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 documented as of this encounter Care Teams Winding Operator Relationship Specialty Start Date End Date Myke Aguilar MD [address] [place] [address] [facility] [place], [place] [id number] PCP - General Family Medicine 11/09/20 04/07/24 Aguila Graff PAC [address] [place] [phone] PCP - General Physician Casting Carrier 04/08/24 Robbie Cruz MD [address] [place] [address] Consulting Physician Neurology 09/05/22 Ángela Peraza APRN, NANOSCIENCE TECHNICIAN [address] [place] [address] Nurse Practitioner Advanced Practice Nurse 11/12/22 documented as of this encounter
--- NOTE | 2024-09-15 10:05 | ED_ITS ---
HPI - Skin/Abscess/Foreign Bdy General Chief complaint: Skin/Abscess/Foreign Body Stated complaint: Rash On Face Time Seen by Provider: 09/15/24 09:35 Source: patient, family (caregiver) and RN notes reviewed Mode of arrival: ambulatory Limitations: no limitations History of Present Illness HPI narrative: Patient presents today with caregiver from residential ([facility]), complaining of a 2 day history of rash the forehead and right cheek that has spread since onset. Patient reports itching and pain. No OTC treatment prior to arrival. Patient does have history of eczema the face for which the use l otion. Related Data Home Medications ?Medication ?Instructions ?Recorded ?Confirmed ?Last Taken ?Type allopurinol 300 mg tablet mg 03/22/24 Unknown History aspirin 81 mg tablet,delayed mg 03/22/24 Unknown History release atorvastatin 40 mg tablet mg 03/22/24 Unknown History cetirizine 10 mg tablet mg 03/22/24 Unknown History divalproex 250 mg tablet,extended mg PO 03/22/24 Unknown History release 24 hr donepezil 10 mg tablet mg 03/22/24 Unknown History famotidine 20 mg tablet mg 03/22/24 Unknown History fluticasone propionate 50 intranasal 03/22/24 Unknown History mcg/actuation nasal spray,suspension folic acid 1 mg tablet 03/22/24 Unknown History gabapentin 100 mg capsule mg 03/22/24 Unknown History levothyroxine 137 mcg tablet mcg 03/22/24 Unknown History losartan 25 mg tablet mg 03/22/24 Unknown History metoprolol tartrate 25 mg tablet mg 03/22/24 Unknown History montelukast 10 mg tablet mg 03/22/24 Unknown History olanzapine 7.5 mg tablet mg 03/22/24 Unknown History acetaminophen 650 mg mg PO 09/15/24 Unknown History tablet,extended release calcium 500 mg (as tablet 09/15/24 Unknown History carbonate)-vitamin D3 5 mcg (200 unit) tablet (Oyster Shell Calcium-Vitamin D3) dextran 70-hypromellose (PF) 0.1 drp 09/15/24 Unknown History %-0.3 % eye drops in a dropperette (GenTeal Tears Moderate (PF)) divalproex 500 mg tablet,extended mg PO 09/15/24 Unknown History release 24 hr asiobiqpssws-plgjgzxe-bdru tablet PO 09/15/24 Unknown History fumarate 19 mg-folic acid 400 mcg tablet (Thera-M) selenium sulfide 2.5 % lotion topical 09/15/24 Unknown History vitamin B complex cap 09/15/24 Unknown History Allergies Allergy/AdvReac Type Severity Reaction Status Date / Time morphine Allergy Unknown Unknown Verified 09/15/24 09:43 [facility] Past Medical History Medical History (Updated 09/15/24 @ 10:23 by Carlota Knight, LABORATORY ANIMAL FACILITY SUPERVISOR, ) Gout Seborrheic dermatitis Eczema Hypertension Hypothyroidism Intellectual disability Schizophrenia Down syndrome Comments At time of signature, I have reviewed and agree with nursing past medical, surgical, social and family history unless otherwise noted. Please see nursing chart for further information. There is no relevant family history pertinent to the presenting complaint Exam Narrative: GENERAL: Well-appearing, well-nourished, and in no acute distress. HEAD: Normocephalic, atraumatic. EYES: EOMI. No redness or drainage. Conjunctivae normal. ENT: Mucous membranes pink and moist. NECK: Normal AROM. CHEST: No respiratory distress. EXTREMITIES: Normal range of motion. No edema. SKIN: Warm, dry. Capillary refill normal. Normal skin turgor. Erythematous flat rash widespread over the forehead, extending to the right cheek and bilateral upper eyelids. There was a thin layer of honey crusting overlying. Few small areas of moist yellow/orange drainage. NEURO: No focal deficits. Alert and oriented x3. Gait steady. PSYCH: Normal affect. No signs of depression or anxiety. Course Course Level of Care: Express Care Visit Vital Signs Vital signs: Vital Signs Temperature 97.8 F 09/15/24 09:26 Pulse Rate 56 L 09/15/24 09:26 Respiratory Rate 18 09/15/24 09:26 Blood Pressure 117/58 L 09/15/24 09:26 Pulse Oximetry 98 09/15/24 09:26 Oxygen Delivery Autopap 09/15/24 09:26 Temperature 97.8 F 09/15/24 09:26 Pulse Rate 56 L 09/15/24 09:26 Respiratory Rate 18 09/15/24 09:26 Blood Pressure 117/58 L 09/15/24 09:26 Pulse Oximetry 98 09/15/24 09:26 Oxygen Delivery Autopap 09/15/24 09:26 Reviewed MDM - Skin/Abscess/Foreign Bdy MDM Narrative Medical decision making narrative: 54-year-old male patient with a history of intellectual disability, down syndrome, and schizophrenia presents today with the staff from his residential complaining of a 2-3 day history of painful and pruritic rash to the forehead and right cheek that is worsening since onset. No OTC tx prior to arrival with hx of facial eczema. Upon exam, Erythematous flat rash widespread over the forehead, extending to the right cheek and bilateral upper eyelids. There was a thin layer of honey crusting overlying. Few small areas of moist yellow/orange drainage. Rash consistent with eczema with overlying impetigo, likely due to scratching. Patient will be started on oral cephalexin and topical mupirocin. Recommend covering the rash with a dressing to remind patient not to scratch. Offered to cover before leaving, but staff states patient will need to be evaluated by their nurse upon return to residential. VSS. Anticipatory guidance given. Differential Diagnosis Differential diagnosis: Likely viral exanthem, dermatophytosis, cellulitis, eczema, impetigo and contact dermatitis Critical Care Time Critical Care Time Critical Care Time: No Discharge Plan Discharge Clinical Impression: Impetigo Patient Disposition: Home Condition: Stable Instructions: Antibiotic Form, Impetigo (DC) Additional Instructions: Please give the Keflex and use the mupirocin ointment as directed. Try to discourage scratching of the area and wrap the head and dressing if needed. Follow-up with a PCP next week in 3 days if symptoms are not improving. Patient Language: Khmer Prescriptions: New cephalexin 500 mg capsule 500 mg PO Q6H 7 Days Qty: 28 0RF mupirocin 2 % ointment 1 applic topical BID 7 Days Qty: 22 0RF No Action atorvastatin 40 mg tablet levothyroxine 137 mcg tablet cetirizine 10 mg tablet donepezil 10 mg tablet olanzapine 7.5 mg tablet aspirin 81 mg tablet,delayed release (DR/EC) famotidine 20 mg tablet losartan 25 mg tablet folic acid 1 mg tablet montelukast 10 mg tablet allopurinol 300 mg tablet gabapentin 100 mg capsule fluticasone propionate 50 mcg/actuation spray,suspension INTRANASAL divalproex 250 mg tablet extended release 24 hr PO metoprolol tartrate 25 mg tablet acetaminophen 650 mg tablet extended release PO divalproex 500 mg tablet extended release 24 hr PO vitamin B complex Capsule calcium carbonate-vitamin D3 [Oyster Shell Calcium-Vit D3] 500 mg-5 mcg (200 unit) tablet GenTeal Tears Moderate (PF) 0.1-0.3 % dropperette selenium sulfide 2.5 % lotion TOPICAL Thera-M 19 mg iron- 400 mcg tablet PO Follow-up/Referrals: UNKNOWN,DOCTOR [Primary Care Provider] - Time of Disposition: 09:53
== END 2024-09-15 09:54 | disposition home or self-care (01) ==
PROVIDERS: Emergency Provider Nurse Practitioner
DX: L01.00 Impetigo, unspecified (principal); I10 Essential (primary) hypertension; Q90.9 Down syndrome, unspecified; M10.9 Gout, unspecified; E03.9 Hypothyroidism, unspecified; Z79.82 Long term (current) use of aspirin
CPT/HCPCS: 99213; G0463